=== PATIENT | male | born 1990 | race American Indian/Alaskan Native ===

== ENCOUNTER 2018-04-05 14:01 | Emergency (ER) | payer SELFPAY ==
[2018-04-05] MEDS ORDERED: NACL 0.9% 1000 ML 1,000 ML IV ONE (15:53)
[2018-04-05 16:43] LABS: Hematocrit 44.3 % (35.5-45.6); Hemoglobin 15.1 gm/dl (11.8-15.2); Mean Corpuscular HGB Conc 34 % (32-34); Mean Corpuscular Volume 88 fl (84-94); Red Blood Count 5.02 M/mm3 (3.65-5.03); Red Cell Distribution Width 13.7 % (13.2-15.2)
[2018-04-05 16:48] LABS: Albumin 4.8 g/dL (3.9-5); BUN/Creatinine Ratio 20; Blood Urea Nitrogen 16 mg/dL (9-20); Calcium 9.5 mg/dL (8.4-10.2); Hemolysis Index 97
[2018-04-05] MEDS ORDERED: MORPHINE IV ONE (16:51)
[2018-04-05] MEDS ORDERED: ROCEPHIN 250 MG in NACL 0.9% 50 ML IV ONE (16:52)
--- NOTE | 2018-04-05 16:53 | Emergency Department Report ---
ED Abdominal Pain HPI - General Chief Complaint: Abdominal Pain Stated Complaint: POSS PANCREATITIS Time Seen by Provider: 04/05/18 15:30 Source: patient Mode of arrival: Ambulatory Limitations: No Limitations - History of Present Illness Initial Comments: This is a 28-year-old male with a history of hepatitis who presents complaining of left quadrant abdominal pain times one day that started yesterday. Discussed pain as nonradiating and localized to left upper quadrant. Patient admits associated nausea vomiting intermittently. Patient denies fever/chills/chest pain/shortness of breath/dizziness MD Complaint: abdominal pain - Related Data Previous Rx's Medication Instructions Recorded Last Taken Type Benzonatate [Tessalon Perles] 100 mg PO Q8HR PRN #20 capsule 03/16/18 Unknown Rx Fluticasone [Flonase] 1 spray NS QDAY #1 bottle 03/16/18 Unknown Rx Lisinopril [Zestril] 20 mg PO DAILY #30 tablet 03/16/18 Unknown Rx Ondansetron [Zofran Odt] 4 mg PO Q8HR PRN #10 tab.rapdis 03/16/18 Unknown Rx Oseltamivir Phosphate [Tamiflu] 75 mg PO BID #10 capsule 03/16/18 Unknown Rx Sulfamethoxazole/Trimethoprim 1 each PO BID #14 tablet 03/16/18 Unknown Rx [Bactrim DS TAB] Abacavir/Dolutegravir/Lamivudi 1 each PO DAILY #30 tablet 04/05/18 Unknown Rx [Triumeq 600-50-300 mg Tablet] Dicyclomine [Bentyl] 20 mg PO DAILY #20 tablet 04/05/18 Unknown Rx Allergies Allergy/AdvReac Type Severity Reaction Status Date / Time No Known Allergies Allergy Verified 04/05/18 14:10 ED Review of Systems ROS: Stated complaint: POSS PANCREATITIS Other details as noted in HPI Constitutional: denies: chills, fever Eyes: denies: eye pain, eye discharge, vision change ENT: denies: ear pain, throat pain Respiratory: denies: cough, shortness of breath, wheezing Cardiovascular: denies: chest pain, palpitations Endocrine: no symptoms reported Gastrointestinal: denies: abdominal pain, nausea, diarrhea Genitourinary: denies: urgency, dysuria Musculoskeletal: denies: back pain, joint swelling, arthralgia Skin: denies: rash, lesions Neurological: denies: headache, weakness, paresthesias Psychiatric: denies: anxiety, depression Hematological/Lymphatic: denies: easy bleeding, easy bruising ED Past Medical Hx - Past Medical History Previous Medical History?: Yes Hx Hypertension: Yes Hx HIV: Yes Additional medical history: pancreatitis-- hiv - Surgical History Past Surgical History?: No Hx Coronary Stent: No Hx Open Heart Surgery: No Hx Pacemaker: No Hx Internal Defibrillator: No Hx Cholecystectomy: No Hx Appendectomy: No Hx Breast Surgery: No - Social History Smoking Status: Current Every Day Smoker Substance Use Type: Alcohol - Medications Home Medications: Home Medications Medication Instructions Recorded Confirmed Last Taken Type Benzonatate [Tessalon Perles] 100 mg PO Q8HR PRN #20 capsule 03/16/18 Unknown Rx Fluticasone [Flonase] 1 spray NS QDAY #1 bottle 03/16/18 Unknown Rx Lisinopril [Zestril] 20 mg PO DAILY #30 tablet 03/16/18 Unknown Rx Ondansetron [Zofran Odt] 4 mg PO Q8HR PRN #10 tab.rapdis 03/16/18 Unknown Rx Oseltamivir Phosphate [Tamiflu] 75 mg PO BID #10 capsule 03/16/18 Unknown Rx Sulfamethoxazole/Trimethoprim 1 each PO BID #14 tablet 03/16/18 Unknown Rx [Bactrim DS TAB] Abacavir/Dolutegravir/Lamivudi 1 each PO DAILY #30 tablet 04/05/18 Unknown Rx [Triumeq 600-50-300 mg Tablet] Dicyclomine [Bentyl] 20 mg PO DAILY #20 tablet 04/05/18 Unknown Rx ED Physical Exam - General Limitations: No Limitations General appearance: alert, in no apparent distress - Head Head exam: Present: atraumatic, normocephalic - Eye Eye exam: Present: normal appearance - ENT ENT exam: Present: mucous membranes moist - Neck Neck exam: Present: normal inspection - Respiratory Respiratory exam: Present: normal lung sounds bilaterally. Absent: respiratory distress - Cardiovascular Cardiovascular Exam: Present: regular rate, normal rhythm. Absent: systolic murmur, diastolic murmur, rubs, gallop - GI/Abdominal GI/Abdominal exam: Present: soft, normal bowel sounds - Rectal Rectal exam: Present: deferred - Extremities Exam Extremities exam: Present: normal inspection - Back Exam Back exam: Present: normal inspection - Neurological Exam Neurological exam: Present: alert, oriented X3 - Psychiatric Psychiatric exam: Present: normal affect, normal mood - Skin Skin exam: Present: warm, dry, intact, normal color. Absent: rash ED Course Vital Signs 04/05/18 04/05/18 14:05 17:05 Temperature 97.5 F L Pulse Rate 111 H Respiratory 18 15 Rate Blood Pressure 140/102 O2 Sat by Pulse 99 Oximetry ED Medical Decision Making - Lab Data Result diagrams: 04/05/18 16:01 04/05/18 16:01 - Medical Decision Making 28-year-old male presents with chronic pancreatitis. Nurse made me aware that patient had been drinking 2 days ago. Which possibly flared up his proctitis. Patient received pain medication, 1 L of fluids, prophylaxis antibiotics in the ED. Discussed the patient to follow up with [place] gastro[facility] Patient is in no acute distress. Vital signs are normal. Patient has no elevated white count, fever. Patient looks well-nourished Labs are within normal limits lipase and amylase elevated within normal limits due to patient's history of pancreatitis Critical care attestation.: If time is entered above; I have spent that time in minutes in the direct care of this critically ill patient, excluding procedure time. ED Disposition Clinical Impression: Chronic pancreatitis Disposition: DC- TO HOME OR SELFCARE Is pt being admited?: No Does the pt Need Aspirin: No Condition: Stable Instructions: Pancreatitis (ED) Additional Instructions: Make sure to follow up with the primary care physician as discussed. Take all your medications as you've been prescribed. If you have any worsening symptoms or develop new symptoms please return to ED immediately. Prescriptions: Abacavir/Dolutegravir/Lamivudi [Triumeq 600-50-300 mg Tablet] 1 each PO DAILY #30 tablet Dicyclomine [Bentyl] 20 mg PO DAILY #20 tablet Referrals: PRIMARY CARE, [Primary Care Provider] - 3-5 Days [facility] [Provider Group] - 3-5 Days [facility] [Provider Group] - 3-5 Days Forms: Accompanied Note, Work/School Release Form(ED)
[2018-04-05 17:01] LABS: Bilirubin,Urine NEG (Negative); Blood,Urine NEG (Negative); Color,Urine Yellow (Yellow); Protein,Urine <15 mg/dL mg/dL (Negative); Urobilinogen,Urine < 2.0 mg/dL (<2.0); WBC,Urine < 1.0 /HPF (0.0-6.0)
[2018-04-05 17:09] LABS: Alanine Aminotransferase 27 units/L (7-56)
[2018-04-05 17:21] LABS: Platelet Count 86 K/mm3 (140-440)
[2018-04-05] MEDS ORDERED: ZOFRAN IV ONE (18:04)
[2018-04-05] MEDS ORDERED: ZOFRAN ONE (18:07)
[2018-04-05 18:39] VITALS: BP 134/98
== END 2018-04-05 18:18 | disposition home or self-care (01) ==
LOC: ED 14:01
DX: K86.1 Other chronic pancreatitis (principal); I10 Essential (primary) hypertension; F17.200 Nicotine dependence, unspecified, uncomplicated
CPT/HCPCS: 36415; 80053; 81001; 82150; 83690; 85025; 96361; 96365; 96375; 99283; J0696; J2270; J2405; J7030

== ENCOUNTER 2018-04-24 11:09 | Emergency (ER) | payer SELFPAY ==
[2018-04-24] MEDS ORDERED: NACL 0.9% 1000 ML 1,000 ML IV ONE (12:21)
[2018-04-24] MEDS ORDERED: TORADOL IV ONE (12:21)
[2018-04-24] MEDS ORDERED: PEPCID IV ONE (12:21)
[2018-04-24] MEDS ORDERED: MORPHINE IV ONE ×2 (12:21→14:01)
[2018-04-24] MEDS ORDERED: ZOFRAN IV ONE (12:21)
[2018-04-24 12:47] LABS: Basophils % (Auto) 0.2 % (0.0-1.8); Eosinophils # (Auto) 0.1 K/mm3 (0.0-0.4); Eosinophils % (Auto) 0.7 % (0.0-4.3); Hemoglobin 14.5 gm/dl (11.8-15.2); Lymphocytes # (Auto) 1.2 K/mm3 (1.2-5.4); Mean Corpuscular HGB Conc 34 % (32-34); Mean Corpuscular Volume 88 fl (84-94); Monocytes # (Auto) 0.3 K/mm3 (0.0-0.8); Monocytes % (Auto) 4.1 % (0.0-7.3); Platelet Count 230 K/mm3 (140-440); Red Blood Count 4.89 M/mm3 (3.65-5.03); Red Cell Distribution Width 13.7 % (13.2-15.2)
[2018-04-24 13:10] LABS: Alanine Aminotransferase 30 units/L (7-56); Albumin 4.7 g/dL (3.9-5); BUN/Creatinine Ratio 18; Blood Urea Nitrogen 14 mg/dL (9-20); Calcium 9.8 mg/dL (8.4-10.2); Hemolysis Index 18
--- NOTE | 2018-04-24 14:44 | Emergency Department Report ---
ED Abdominal Pain HPI - General Chief Complaint: Abdominal Pain Stated Complaint: ABD PAIN/MIGRAINE Time Seen by Provider: 04/24/18 12:19 Source: patient Mode of arrival: Ambulatory Limitations: No Limitations - History of Present Illness Initial Comments: Patient is a 28-year-old black male with a past medical history of chronic pancreatitis whose been having some epigastric discomfort for the past 3 days. Patient states the pain is a 10 I's and his severity and there is some radiation to his back. Patient states he has a past medical history of alcohol abuse however he has not been drinking in last several days. Patient states he has had some nausea vomiting and mild diarrhea which she does get with his flareups of pancreatitis. Patient has no fever at this time. MD Complaint: abdominal pain Severity scale (0 -10): 7 - Related Data Previous Rx's Medication Instructions Recorded Last Taken Type Benzonatate [Tessalon Perles] 100 mg PO Q8HR PRN #20 capsule 03/16/18 Unknown Rx Fluticasone [Flonase] 1 spray NS QDAY #1 bottle 03/16/18 Unknown Rx Lisinopril [Zestril] 20 mg PO DAILY #30 tablet 03/16/18 Unknown Rx Oseltamivir Phosphate [Tamiflu] 75 mg PO BID #10 capsule 03/16/18 Unknown Rx Sulfamethoxazole/Trimethoprim 1 each PO BID #14 tablet 03/16/18 Unknown Rx [Bactrim DS TAB] Abacavir/Dolutegravir/Lamivudi 1 each PO DAILY #30 tablet 04/05/18 Unknown Rx [Triumeq 600-50-300 mg Tablet] Dicyclomine [Bentyl] 20 mg PO DAILY #20 tablet 04/05/18 Unknown Rx Ondansetron [Zofran ODT TAB] 4 mg PO Q8HR PRN #10 tab.rapdis 04/05/18 Unknown Rx HYDROcodone/APAP 5-325 [[place] 1 each PO Q6HR PRN #12 tablet 04/24/18 Unknown Rx 5/325] Ibuprofen [Motrin] 600 mg PO Q8H PRN #20 tablet 04/24/18 Unknown Rx Ondansetron [Zofran Odt] 4 mg PO Q8HR PRN #10 tab.rapdis 04/24/18 Unknown Rx Allergies Allergy/AdvReac Type Severity Reaction Status Date / Time No Known Allergies Allergy Verified 04/05/18 14:10 ED Review of Systems ROS: Stated complaint: ABD PAIN/MIGRAINE Other details as noted in HPI Comment: All other systems reviewed and negative ED Past Medical Hx - Past Medical History Hx Hypertension: Yes Hx HIV: Yes Additional medical history: pancreatitis-- hiv - Surgical History Hx Coronary Stent: No Hx Open Heart Surgery: No Hx Pacemaker: No Hx Internal Defibrillator: No Hx Cholecystectomy: No Hx Appendectomy: No Hx Breast Surgery: No - Social History Smoking Status: Current Every Day Smoker Substance Use Type: None - Medications Home Medications: Home Medications Medication Instructions Recorded Confirmed Last Taken Type Benzonatate [Tessalon Perles] 100 mg PO Q8HR PRN #20 capsule 03/16/18 Unknown Rx Fluticasone [Flonase] 1 spray NS QDAY #1 bottle 03/16/18 Unknown Rx Lisinopril [Zestril] 20 mg PO DAILY #30 tablet 03/16/18 Unknown Rx Oseltamivir Phosphate [Tamiflu] 75 mg PO BID #10 capsule 03/16/18 Unknown Rx Sulfamethoxazole/Trimethoprim 1 each PO BID #14 tablet 03/16/18 Unknown Rx [Bactrim DS TAB] Abacavir/Dolutegravir/Lamivudi 1 each PO DAILY #30 tablet 04/05/18 Unknown Rx [Triumeq 600-50-300 mg Tablet] Dicyclomine [Bentyl] 20 mg PO DAILY #20 tablet 04/05/18 Unknown Rx Ondansetron [Zofran ODT TAB] 4 mg PO Q8HR PRN #10 tab.rapdis 04/05/18 Unknown Rx HYDROcodone/APAP 5-325 [[place] 1 each PO Q6HR PRN #12 tablet 04/24/18 Unknown Rx 5/325] Ibuprofen [Motrin] 600 mg PO Q8H PRN #20 tablet 04/24/18 Unknown Rx Ondansetron [Zofran Odt] 4 mg PO Q8HR PRN #10 tab.rapdis 04/24/18 Unknown Rx ED Physical Exam - General Limitations: No Limitations General appearance: alert, in no apparent distress - Head Head exam: Present: atraumatic, normocephalic - Eye Eye exam: Present: normal appearance - ENT ENT exam: Present: mucous membranes moist - Neck Neck exam: Present: normal inspection - Respiratory Respiratory exam: Present: normal lung sounds bilaterally. Absent: respiratory distress, wheezes, rales, rhonchi - Cardiovascular Cardiovascular Exam: Present: regular rate, normal rhythm. Absent: systolic murmur, diastolic murmur, rubs, gallop - GI/Abdominal GI/Abdominal exam: Present: soft, tenderness (epigastric), normal bowel sounds. Absent: distended, guarding, rebound - Rectal Rectal exam: Present: deferred - Extremities Exam Extremities exam: Present: normal inspection - Back Exam Back exam: Present: normal inspection - Neurological Exam Neurological exam: Present: alert, oriented X3 - Psychiatric Psychiatric exam: Present: normal affect, normal mood - Skin Skin exam: Present: warm, dry, intact, normal color. Absent: rash ED Course Vital Signs 04/24/18 04/24/18 04/24/18 11:15 12:45 12:51 Temperature 98.7 F Pulse Rate 103 H Respiratory 18 18 18 Rate Blood Pressure 157/96 O2 Sat by Pulse 99 Oximetry 04/24/18 12:52 Temperature Pulse Rate Respiratory 18 Rate Blood Pressure O2 Sat by Pulse 99 Oximetry ED Medical Decision Making - Lab Data Result diagrams: 04/24/18 12:26 04/24/18 12:26 Lab Results 04/24/18 04/24/18 Range/Units 12:26 12:26 WBC 7.8 (4.5-11.0) K/mm3 RBC 4.89 (3.65-5.03) M/mm3 Hgb 14.5 (11.8-15.2) gm/dl Hct 43.0 (35.5-45.6) % MCV 88 (84-94) fl MCH 30 (28-32) pg MCHC 34 (32-34) % RDW 13.7 (13.2-15.2) % Plt Count 230 (140-440) K/mm3 Lymph % (Auto) 15.0 (13.4-35.0) % Richardson % (Auto) 4.1 (0.0-7.3) % Eos % (Auto) 0.7 (0.0-4.3) % Baso % (Auto) 0.2 (0.0-1.8) % Lymph # 1.2 (1.2-5.4) K/mm3 Richardson # 0.3 (0.0-0.8) K/mm3 Eos # 0.1 (0.0-0.4) K/mm3 Baso # 0.0 (0.0-0.1) K/mm3 Seg Neutrophils % 80.0 H (40.0-70.0) % Seg Neutrophils # 6.2 (1.8-7.7) K/mm3 Sodium 138 (137-145) mmol/L Potassium 4.1 (3.6-5.0) mmol/L Chloride 102.3 (98-107) mmol/L Carbon Dioxide 24 (22-30) mmol/L Anion Gap 16 mmol/L BUN 14 (9-20) mg/dL Creatinine 0.8 (0.8-1.5) mg/dL Estimated GFR > 60 ml/min BUN/Creatinine Ratio 18 % Glucose 155 H (75-100) mg/dL Calcium 9.8 (8.4-10.2) mg/dL Total Bilirubin 0.30 (0.1-1.2) mg/dL AST 28 (5-40) units/L ALT 30 (7-56) units/L Alkaline Phosphatase 60 (35-129) units/L Total Protein 8.1 (6.3-8.2) g/dL Albumin 4.7 (3.9-5) g/dL Albumin/Globulin Ratio 1.4 % Lipase 211 H (13-60) units/L - Medical Decision Making Patient was hydrated him emergency department. No additional nausea vomiting. Patient to be discharged home with GI follow-up. Critical care attestation.: If time is entered above; I have spent that time in minutes in the direct care of this critically ill patient, excluding procedure time. 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
[2018-04-24 15:26] VITALS: BP 148/103
== END 2018-04-24 15:21 | disposition home or self-care (01) ==
LOC: ED 11:09
DX: K86.1 Other chronic pancreatitis (principal); I10 Essential (primary) hypertension; F17.200 Nicotine dependence, unspecified, uncomplicated
CPT/HCPCS: 36415; 80053; 83690; 85025; 96361; 96374; 96375; 96376; 99283; J1885; J2270; J2405; J7030

== ENCOUNTER 2018-04-28 17:16 | Emergency (ER) | payer SELFPAY ==
[2018-04-28] MEDS ORDERED: NACL 0.9% 1000 ML 1,000 ML IV ONE ×2 (17:29→20:01)
[2018-04-28 18:11] LABS: Alanine Aminotransferase 27 units/L (7-56); Albumin 4.5 g/dL (3.9-5)
[2018-04-28 18:26] LABS: Bilirubin,Urine NEG (Negative); Blood,Urine NEG (Negative); Color,Urine Yellow (Yellow); Mucus,Urine 1+ /HPF; Protein,Urine <15 mg/dL mg/dL (Negative); Urobilinogen,Urine < 2.0 mg/dL (<2.0); WBC,Urine < 1.0 /HPF (0.0-6.0)
[2018-04-28 18:34] LABS: BUN/Creatinine Ratio 14; Blood Urea Nitrogen 15 mg/dL (9-20); Hemolysis Index 63
[2018-04-28 18:38] LABS: Hematocrit 46.6 % (35.5-45.6); Hemoglobin 15.8 gm/dl (11.8-15.2); Mean Corpuscular HGB Conc 34 % (32-34); Mean Corpuscular Volume 88 fl (84-94); Red Blood Count 5.31 M/mm3 (3.65-5.03); Red Cell Distribution Width 13.8 % (13.2-15.2)
[2018-04-28 18:47] LABS: Platelet Count 157 K/mm3 (140-440)
[2018-04-28] MEDS ORDERED: ZOFRAN IV ONE (18:47)
[2018-04-28] MEDS ORDERED: MORPHINE IV ONE ×2 (18:47→20:52)
[2018-04-28] MEDS ORDERED: ZOFRAN ONE (18:50)
[2018-04-28] MEDS ORDERED: MORPHINE ONE ×2 (18:51→20:52)
--- NOTE | 2018-04-28 20:40 | Emergency Department Report ---
ED Abdominal Pain HPI - General Chief Complaint: Abdominal Pain Stated Complaint: ABD PAIN Time Seen by Provider: 04/28/18 20:00 Source: patient Mode of arrival: Ambulatory Limitations: No Limitations - History of Present Illness Initial Comments: There is a 28-year-old -[place] Citizen male with history of HIV positive and pancreatitis who presents for left upper quadrant abdominal pain with nausea and vomiting for the past 3 days patient states he stopped doing EtOH no other drugs or smoking pain started 3 days ago described as burning aching 6/10 exacerbated by by mouth intake and is relieved by nothing patient states that he saw medication regimens does have an IDP DrAna but cannot see him for another 2 weeks. Last by mouth intake was this morning last vomiting was 3 hours ago pain is 4/10 at this time . No relieving factors pain is exacerbated by by mouth intake MD Complaint: abdominal pain Onset/Timin -: days(s) Location: LUQ Radiation: none Migration to: no migration Severity: moderate Severity scale (0 -10): 8 Quality: aching Consistency: constant Improves With: nothing Worsens With: eating Associated Symptoms: nausea, vomiting. denies: diarrhea, fever, chills, constipation, dysuria, hematemesis, hematochezia, melena, hematuria, anorexia, syncope - Related Data Previous Rx's Medication Instructions Recorded Last Taken Type Benzonatate [Tessalon Perles] 100 mg PO Q8HR PRN #20 capsule 03/16/18 Unknown Rx Fluticasone [Flonase] 1 spray NS QDAY #1 bottle 03/16/18 Unknown Rx Lisinopril [Zestril] 20 mg PO DAILY #30 tablet 03/16/18 Unknown Rx Oseltamivir Phosphate [Tamiflu] 75 mg PO BID #10 capsule 03/16/18 Unknown Rx Sulfamethoxazole/Trimethoprim 1 each PO BID #14 tablet 03/16/18 Unknown Rx [Bactrim DS TAB] Abacavir/Dolutegravir/Lamivudi 1 each PO DAILY #30 tablet 04/05/18 Unknown Rx [Triumeq 600-50-300 mg Tablet] Dicyclomine [Bentyl] 20 mg PO DAILY #20 tablet 04/05/18 Unknown Rx Ondansetron [Zofran ODT TAB] 4 mg PO Q8HR PRN #10 tab.rapdis 04/05/18 Unknown Rx HYDROcodone/APAP 5-325 [[place] 1 each PO Q6HR PRN #12 tablet 04/24/18 Unknown Rx 5/325] Ibuprofen [Motrin] 600 mg PO Q8H PRN #20 tablet 04/24/18 Unknown Rx Ondansetron [Zofran Odt] 4 mg PO Q8HR PRN #10 tab.rapdis 04/24/18 Unknown Rx Famotidine [Pepcid] 20 mg PO BID #60 tablet 04/28/18 Unknown Rx Ondansetron [Zofran Odt] 4 mg PO Q8HR PRN #12 tab.rapdis 04/28/18 Unknown Rx Tramadol HCl [Ultram] 50 mg PO QID PRN #12 tablet 04/28/18 Unknown Rx Allergies Allergy/AdvReac Type Severity Reaction Status Date / Time No Known Allergies Allergy Verified 04/05/18 14:10 ED Review of Systems ROS: Stated complaint: ABD PAIN Other details as noted in HPI Constitutional: denies: chills, fever Eyes: denies: eye pain, eye discharge, vision change ENT: denies: ear pain, throat pain Respiratory: denies: cough, shortness of breath, wheezing Cardiovascular: denies: chest pain, palpitations Endocrine: no symptoms reported Gastrointestinal: abdominal pain, nausea, vomiting. denies: diarrhea, cons tipation, hematemesis, melena, hematochezia Genitourinary: denies: urgency, dysuria Musculoskeletal: denies: back pain, joint swelling, arthralgia Skin: denies: rash, lesions Neurological: denies: headache, weakness, paresthesias Psychiatric: denies: anxiety, depression Hematological/Lymphatic: denies: easy bleeding, easy bruising ED Past Medical Hx - Past Medical History Hx Hypertension: Yes Hx HIV: Yes Additional medical history: pancreatitis - Surgical History Hx Coronary Stent: No Hx Open Heart Surgery: No Hx Pacemaker: No Hx Internal Defibrillator: No Hx Cholecystectomy: No Hx Appendectomy: No Hx Breast Surgery: No - Social History Smoking Status: Current Every Day Smoker Substance Use Type: None - Medications Home Medications: Home Medications Medication Instructions Recorded Confirmed Last Taken Type Benzonatate [Tessalon Perles] 100 mg PO Q8HR PRN #20 capsule 03/16/18 Unknown Rx Fluticasone [Flonase] 1 spray NS QDAY #1 bottle 03/16/18 Unknown Rx Lisinopril [Zestril] 20 mg PO DAILY #30 tablet 03/16/18 Unknown Rx Oseltamivir Phosphate [Tamiflu] 75 mg PO BID #10 capsule 03/16/18 Unknown Rx Sulfamethoxazole/Trimethoprim 1 each PO BID #14 tablet 03/16/18 Unknown Rx [Bactrim DS TAB] Abacavir/Dolutegravir/Lamivudi 1 each PO DAILY #30 tablet 04/05/18 Unknown Rx [Triumeq 600-50-300 mg Tablet] Dicyclomine [Bentyl] 20 mg PO DAILY #20 tablet 04/05/18 Unknown Rx Ondansetron [Zofran ODT TAB] 4 mg PO Q8HR PRN #10 tab.rapdis 04/05/18 Unknown Rx HYDROcodone/APAP 5-325 [[place] 1 each PO Q6HR PRN #12 tablet 04/24/18 Unknown Rx 5/325] Ibuprofen [Motrin] 600 mg PO Q8H PRN #20 tablet 04/24/18 Unknown Rx Ondansetron [Zofran Odt] 4 mg PO Q8HR PRN #10 tab.rapdis 04/24/18 Unknown Rx Famotidine [Pepcid] 20 mg PO BID #60 tablet 04/28/18 Unknown Rx Ondansetron [Zofran Odt] 4 mg PO Q8HR PRN #12 tab.rapdis 04/28/18 Unknown Rx Tramadol HCl [Ultram] 50 mg PO QID PRN #12 tablet 04/28/18 Unknown Rx ED Physical Exam - General Limitations: No Limitations General appearance: alert, in no apparent distress - Head Head exam: Present: atraumatic, normocephalic - Eye Eye exam: Present: normal appearance - ENT ENT exam: Present: mucous membranes moist - Neck Neck exam: Present: normal inspection - Respiratory Respiratory exam: Present: normal lung sounds bilaterally. Absent: respiratory distress, wheezes, stridor, chest wall tenderness - Cardiovascular Cardiovascular Exam: Present: regular rate, normal rhythm, normal heart sounds. Absent: systolic murmur, diastolic murmur, rubs, gallop - GI/Abdominal GI/Abdominal exam: Present: soft, tenderness (LUQ ), normal bowel sounds. Absent: guarding, rebound, rigid, mass, bruit, pulsatile mass, hernia - Rectal Rectal exam: Present: deferred - Extremities Exam Extremities exam: Present: normal inspection - Back Exam Back exam: Present: normal inspection, full ROM. Absent: tenderness, CVA tenderness (R), CVA tenderness (L) - Neurological Exam Neurological exam: Present: alert, oriented X3, CN II-XII intact, normal gait, reflexes normal - Psychiatric Psychiatric exam: Present: normal affect, normal mood - Skin Skin exam: Present: warm, dry, intact, normal color. Absent: rash ED Course Vital Signs 04/28/18 04/28/18 04/28/18 17:22 19:18 20:53 Temperature 98.4 F Pulse Rate 119 H Respiratory 18 18 18 Rate Blood Pressure 147/94 O2 Sat by Pulse 99 Oximetry ED Medical Decision Making - Lab Data Result diagrams: 04/28/18 17:37 04/28/18 17:37 Labs 04/28/18 04/28/18 04/28/18 17:36 17:37 17:37 WBC 9.2 RBC 5.31 H Hgb 15.8 H Hct 46.6 H MCV 88 MCH 30 MCHC 34 RDW 13.8 Plt Count 157 Lymph % (Auto) [employer] Machine Adjuster [place] % (Auto) [employer] Machine Adjuster Eos % (Auto) [employer] Machine Adjuster Baso % (Auto) [employer] Machine Adjuster Lymph # [employer] Machine Adjuster [place] # Shotgun [employer] Assembly Machine Adjuster Eos # Shotgun [employer] Machine Adjuster Baso # [employer]gun [employer] Machine Adjuster Seg Neutrophils % Shotgun [employer] Machine Adjuster Seg Neutrophils # Shotgun [employer] Machine Adjuster Sodium 137 Potassium 4.3 Chloride 104.9 Carbon Dioxide 16 L D Anion Gap 20 BUN 15 Creatinine 1.1 Estimated GFR > 60 BUN/Creatinine Ratio 14 Glucose 110 H Calcium 10.0 Total Bilirubin 0.50 AST 30 ALT 27 Alkaline Phosphatase 63 Total Protein 8.5 H Albumin 4.5 Albumin/Globulin Ratio 1.1 Lipase Urine Color Yellow Urine Turbidity Clear Urine pH 5.0 Ur Specific [place] 1.026 Urine Protein <15 mg/dl Urine Glucose (UA) Neg Urine Ketones Tr Urine Blood Neg Urine Nitrite Neg Urine Bilirubin Neg Urine Urobilinogen < 2.0 Ur Leukocyte Esterase Neg Urine WBC (Auto) < 1.0 Urine RBC (Auto) 1.0 Urine Mucus 1+ 04/28/18 17:37 WBC RBC Hgb Hct MCV MCH MCHC RDW Plt Count Lymph % (Auto) [place] % (Auto) Eos % (Auto) Baso % (Auto) Lymph # [place] # Eos # Baso # Seg Neutrophils % Seg Neutrophils # Sodium Potassium Chloride Carbon Dioxide Anion Gap BUN Creatinine Estimated GFR BUN/Creatinine Ratio Glucose Calcium Total Bilirubin AST ALT Alkaline Phosphatase Total Protein Albumin Albumin/Globulin Ratio Lipase 132 H Urine Color Urine Turbidity Urine pH Ur Specific [place] Urine Protein Urine Glucose (UA) Urine Ketones Urine Blood Urine Nitrite Urine Bilirubin Urine Urobilinogen Ur Leukocyte Esterase Urine WBC (Auto) Urine RBC (Auto) Urine Mucus - Radiology Data Radiology results: report reviewed, image reviewed Findings [facility] [address] [place] [address] Cat Scan Report Signed Patient: AARON ALICEA MR#: [id number] : 1990 Acct:[id number] Age/Sex: 28 / M ADM Date: 04/28/18 Loc: ED Attending Dr: Ordering Physician: SARAH ALEGRE NP Date of Service: 04/28/18 Procedure(s): CT abdomen pelvis wo con Accession Number(s): [id number] cc: SARAH ALEGRE NP FINAL REPORT PROCEDURE: CT ABDOMEN PELVIS WO CON TECHNIQUE: Computerized axial tomography of the abdomen and pelvis was performed without intravenous contrast. HISTORY: abd pain COMPARISON: No prior studies are available for comparison. FINDINGS: Visualized lower thorax: No significant abnormality. Liver: Normal size and attenuation. Spleen: Normal size and attenuation. Gallbladder and biliary system: Normal. Pancreas: Chronic pancreatitis with multiple calcifications throughout. There is dilatation of the pancreatic duct. No fluid collection. Adrenals: Normal. Kidneys: Normal. GI tract: Normal. No dilated loops of large or small bowel. Appendix is normal. Lymph nodes and mesentery: Normal. Vasculature: Normal. Bladder: Normal. Reproductive organs: Normal. Peritoneum: No free fluid. Musculoskeletal structures: No significant abnormality. Other: None. IMPRESSION: Chronic pancreatitis with dilatation of the pancreatic duct and multiple calcifications. No pseudocyst. Transcribed By: BRP Dictated By: DEEDEE AL MD Electronically Authenticated By: DEEDEE AL MD Signed Date/Time: 04/28/182106 - Medical Decision Making pt symptoms improved, ct abd pelvis: chronic pancreatitis, pt advised to avoid ETHOH, rx: for zofran prn, pepcid, ultram follow up with pcp and GI in 2 days pt verbalized agreement and understanding of discharge plan. pt is tolerating po intake without n/v at this time, abd pain is 2/10 from 8/10 pt is in stable condition at this time, will return to ed if symptoms worsen. Critical care attestation.: If time is entered above; I have spent that time in minutes in the direct care of this critically ill patient, excluding procedure time. ED Disposition Clinical Impression: Pancreatitis Qualifiers: Chronicity: chronic Pancreatitis type: unspecified pancreatitis type Qualified Code(s): K86.1 - Other chronic pancreatitis Abdominal pain Qualifiers: Abdominal location: generalized Qualified Code(s): R10.84 - Generalized abdominal pain Disposition: TO HOME OR SELFCARE Is pt being admited?: No Does the pt Need Aspirin: No Condition: Stable Instructions: Pancreatitis (ED), Abuse of Alcohol (ED) Prescriptions: Famotidine [Pepcid] 20 mg PO BID #60 tablet Ondansetron [Zofran Odt] 4 mg PO Q8HR PRN #12 tab.rapdis PRN Reason: nausea and vomting Tramadol HCl [Ultram] 50 mg PO QID PRN #12 tablet PRN Reason: pain Referrals: PRIMARY CARE, [Referring] - 3-5 Days [facility] [Provider Group] - 3-5 Days Forms: Work/School Release Form(ED) Time of Disposition: 22:36
--- NOTE | 2018-04-28 21:07 | Cat Scan Report ---
FINAL REPORT PROCEDURE: CT ABDOMEN PELVIS WO CON TECHNIQUE: Computerized axial tomography of the abdomen and pelvis was performed without intravenous contrast. HISTORY: abd pain COMPARISON: No prior studies are available for comparison. FINDINGS: Visualized lower thorax: No significant abnormality. Liver: Normal size and attenuation. Spleen: Normal size and attenuation. Gallbladder and biliary system: Normal. Pancreas: Chronic pancreatitis with multiple calcifications throughout. There is dilatation of the pa ncreatic duct. No fluid collection. Adrenals: Normal. Kidneys: Normal. GI tract: Normal. No dilated loops of large or small bowel. Appendix is normal. Lymph nodes and mesentery: Normal. Vasculature: Normal. Bladder: Normal. Reproductive organs: Normal. Peritoneum: No free fluid. Musculoskeletal structures: No significant abnormality. Other: None. IMPRESSION: Chronic pancreatitis with dilatation of the pancreatic duct and multiple calcifications. No pseudocys t.
[2018-04-28] MEDS ORDERED: REGLAN IV ONE (21:55)
[2018-04-28] MEDS ORDERED: BENADRYL IV ONE (21:55)
[2018-04-28] MEDS ORDERED: HALDOL IM ONE (22:05)
[2018-04-30 12:35] VITALS: BP 147/94
== END 2018-04-28 22:52 | disposition home or self-care (01) ==
LOC: ED 17:16
DX: K85.90 Acute pancreatitis without necrosis or infection, unspecified (principal); I10 Essential (primary) hypertension; F17.200 Nicotine dependence, unspecified, uncomplicated; Z95.5 Presence of coronary angioplasty implant and graft
CPT/HCPCS: 36415; 74176; 80053; 81001; 83690; 85025; 96361; 96372; 96374; 96375; 96376; 99284; J1200; J1630; J2270; J2405; J2765; J7030

== ENCOUNTER 2018-06-07 08:30 | Emergency (ER) | payer SELFPAY ==
[2018-06-07 08:43] VITALS: BP 160/99
[2018-06-07] MEDS ORDERED: NACL 0.9% 1000 ML 1,000 ML IV ONE (10:03)
[2018-06-07] MEDS ORDERED: ZOFRAN IV ONE (10:03)
[2018-06-07] MEDS ORDERED: MORPHINE IV ONE ×2 (10:03→11:28)
--- NOTE | 2018-06-07 10:16 | Emergency Department Report ---
ED Abdominal Pain HPI - General Chief Complaint: Abdominal Pain Stated Complaint: ABD PAIN, N/V,BLOODY STOOL Time Seen by Provider: 06/07/18 09:08 Source: patient Mode of arrival: Ambulatory Limitations: No Limitations - History of Present Illness Initial Comments: This is a 28-year-old male nontoxic, well nourished in appearance, no acute signs of distress presents to the ED with c/o of nausea and vomiting and abdominal pain 1 day. Patient also stated has been seeing blood in stool. Patient stated this is similar symptoms with his pancritis. Patient describes vomiting as food content and yellow gastric acid. Patient describes abdominal pain as cramping and aching with level of 8/10 diffuse. Patient denies chest pain, short of breath, fever, chills, headache, stiff neck, numbness or tingling. Patient denies any diarrhea or constipation. Patient denies any recent travels. Patient denies any allergies. MD Complaint: abdominal pain -: days(s) (1) Location: diffuse Radiation: none Migration to: no migration Severity: mild Severity scale (0 -10): 8 Quality: aching Consistency: constant Improves With: nothing Worsens With: nothing Associated Symptoms: nausea, vomiting, hematochezia. denies: diarrhea, fever, chills, constipation, dysuria, hematemesis, melena, hematuria, anorexia, syncope - Related Data Previous Rx's Medication Instructions Recorded Last Taken Type Benzonatate [Tessalon Perles] 100 mg PO Q8HR PRN #20 capsule 03/16/18 Unknown Rx Fluticasone [Flonase] 1 spray NS QDAY #1 bottle 03/16/18 Unknown Rx Lisinopril [Zestril] 20 mg PO DAILY #30 tablet 03/16/18 Unknown Rx Oseltamivir Phosphate [Tamiflu] 75 mg PO BID #10 capsule 03/16/18 Unknown Rx Sulfamethoxazole/Trimethoprim 1 each PO BID #14 tablet 03/16/18 Unknown Rx [Bactrim DS TAB] Abacavir/Dolutegravir/Lamivudi 1 each PO DAILY #30 tablet 04/05/18 Unknown Rx [Triumeq 600-50-300 mg Tablet] Dicyclomine [Bentyl] 20 mg PO DAILY #20 tablet 04/05/18 Unknown Rx Ondansetron [Zofran ODT TAB] 4 mg PO Q8HR PRN #10 tab.rapdis 04/05/18 Unknown Rx HYDROcodone/APAP 5-325 [[place] 1 each PO Q6HR PRN #12 tablet 04/24/18 Unknown Rx 5/325] Ibuprofen [Motrin] 600 mg PO Q8H PRN #20 tablet 04/24/18 Unknown Rx Ondansetron [Zofran Odt] 4 mg PO Q8HR PRN #10 tab.rapdis 04/24/18 Unknown Rx Famotidine [Pepcid] 20 mg PO BID #60 tablet 04/28/18 Unknown Rx Ondansetron [Zofran Odt] 4 mg PO Q8HR PRN #12 tab.rapdis 04/28/18 Unknown Rx Tramadol HCl [Ultram] 50 mg PO QID PRN #12 tablet 04/28/18 Unknown Rx Acetaminophen/Codeine [Tylenol 1 tab PO Q6H PRN #12 tab 06/07/18 Unknown Rx /Codeine # 3 tab] Ondansetron [Zofran Odt] 4 mg PO Q8HR PRN #20 tab.rapdis 06/07/18 Unknown Rx Allergies Allergy/AdvReac Type Severity Reaction Status Date / Time No Known Allergies Allergy Verified 04/05/18 14:10 ED Review of Systems ROS: Stated complaint: ABD PAIN, N/V,BLOODY STOOL Other details as noted in HPI Constitutional: denies: chills, fever Eyes: denies: eye pain, eye discharge, vision change ENT: denies: ear pain, throat pain Respiratory: denies: cough, shortness of breath, wheezing Cardiovascular: denies: chest pain, palpitations Endocrine: no symptoms reported Gastrointestinal: abdominal pain, nausea, vomiting, hematochezia. denies: diarrhea, constipation, hematemesis Genitourinary: denies: urgency, dysuria Musculoskeletal: denies: back pain, joint swelling, arthralgia Skin: denies: rash, lesions Neurological: denies: headache, weakness, paresthesias Psychiatric: denies: anxiety, depression Hematological/Lymphatic: denies: easy bleeding, easy bruising ED Past Medical Hx - Past Medical History Hx Hypertension: Yes Hx HIV: Yes Additional medical history: pancreatitis-- hiv - Surgical History Hx Coronary Stent: No Hx Open Heart Surgery: No Hx Pacemaker: No Hx Internal Defibrillator: No Hx Cholecystectomy: No Hx Appendectomy: No Hx Breast Surgery: No - Social History Smoking Status: Current Every Day Smoker Substance Use Type: None - Medications Home Medications: Home Medications Medication Instructions Recorded Confirmed Last Taken Type Benzonatate [Tessalon Perles] 100 mg PO Q8HR PRN #20 capsule 03/16/18 Unknown Rx Fluticasone [Flonase] 1 spray NS QDAY #1 bottle 03/16/18 Unknown Rx Lisinopril [Zestril] 20 mg PO DAILY #30 tablet 03/16/18 Unknown Rx Oseltamivir Phosphate [Tamiflu] 75 mg PO BID #10 capsule 03/16/18 Unknown Rx Sulfamethoxazole/Trimethoprim 1 each PO BID #14 tablet 03/16/18 Unknown Rx [Bactrim DS TAB] Abacavir/Dolutegravir/Lamivudi 1 each PO DAILY #30 tablet 04/05/18 Unknown Rx [Triumeq 600-50-300 mg Tablet] Dicyclomine [Bentyl] 20 mg PO DAILY #20 tablet 04/05/18 Unknown Rx Ondansetron [Zofran ODT TAB] 4 mg PO Q8HR PRN #10 tab.rapdis 04/05/18 Unknown Rx HYDROcodone/APAP 5-325 [[place] 1 each PO Q6HR PRN #12 tablet 04/24/18 Unknown Rx 5/325] Ibuprofen [Motrin] 600 mg PO Q8H PRN #20 tablet 04/24/18 Unknown Rx Ondansetron [Zofran Odt] 4 mg PO Q8HR PRN #10 tab.rapdis 04/24/18 Unknown Rx Famotidine [Pepcid] 20 mg PO BID #60 tablet 04/28/18 Unknown Rx Ondansetron [Zofran Odt] 4 mg PO Q8HR PRN #12 tab.rapdis 04/28/18 Unknown Rx Tramadol HCl [Ultram] 50 mg PO QID PRN #12 tablet 04/28/18 Unknown Rx Acetaminophen/Codeine [Tylenol 1 tab PO Q6H PRN #12 tab 06/07/18 Unknown Rx /Codeine # 3 tab] Ondansetron [Zofran Odt] 4 mg PO Q8HR PRN #20 tab.rapdis 06/07/18 Unknown Rx ED Physical Exam - General Limitations: No Limitations General appearance: alert, in no apparent distress - Head Head exam: Present: atraumatic, normocephalic - Eye Eye exam: Present: normal appearance - Neck Neck exam: Present: normal inspection, full ROM. Absent: tenderness, meningismus, lymphadenopathy - Respiratory Respiratory exam: Present: normal lung sounds bilaterally. Absent: respiratory distress, wheezes, rales, rhonchi, stridor, chest wall tenderness, accessory muscle use, decreased breath sounds, prolonged expiratory - Cardiovascular Cardiovascular Exam: Present: regular rate, normal rhythm, normal heart sounds. Absent: irregular rhythm, systolic murmur, diastolic murmur, rubs, gallop - GI/Abdominal GI/Abdominal exam: Present: soft, tenderness, normal bowel sounds. Absent: distended, guarding, rebound, rigid, diminished bowel sounds - Expanded GI/Abdominal Exam Expanded GI/Abdominal exam: Absent: psoas sign, Cam's sign, Rovsing's sign, tenderness at [place]'s Point, ascites - Rectal Rectal exam: Present: deferred, normal inspection, normal rectal tone, heme (-) stool. Absent: decreased rectal tone, heme (+) stool, black stool, bloody stool, fecal impaction, hemorrhoids - Extremities Exam Extremities exam: Present: normal inspection, full ROM - Back Exam Back exam: Present: normal inspection, full ROM. Absent: tenderness, CVA tenderness (R), CVA tenderness (L), muscle spasm, paraspinal tenderness, vertebral tenderness, rash noted - Neurological Exam Neurological exam: Present: alert, oriented X3, normal gait - Psychiatric Psychiatric exam: Present: normal affect, normal mood - Skin Skin exam: Present: warm, dry, intact, normal color. Absent: rash ED Course Vital Signs 06/07/18 06/07/18 06/07/18 08:40 10:29 11:36 Temperature 98.6 F Pulse Rate 109 H Respiratory 20 18 16 Rate Blood Pressure 160/99 O2 Sat by Pulse 98 Oximetry 06/07/18 12:59 Temperature Pulse Rate Respiratory 17 Rate Blood Pressure O2 Sat by Pulse Oximetry - Reevaluation(s) Reevaluation #1: 06/07/18 12:06 Patient is speaking in full sentences with no signs of distress noted. - Consultations Consultation #1: 06/07/18 12:06 Patient has been consulted with Renzo Fairbanks about patient history, physical exam, and labs/CT results and agrees to the ED plan of care and if patient can tolerate fluids with pain undercontrol, discharged ED Medical Decision Making - Lab Data Result diagrams: 06/07/18 10:20 06/07/18 10:20 - Medical Decision Making This is a 28-year-old male that presents with chronic pancreatitis. Patient is stable and was examined by me. Patient discussed with Renzo Fairbanks which agrees to the ED plan of care and discharge. There is slight abdominal tenderness. Negative signs of symptoms of appendicitis. Labs obtained. UA obtained. CT with contrast of abdomen obtained and dictated by the radiologist. Patient is notified of the report with no questions noted by the patient. Vital signs are stable prior to discharge. Patient received medical treatment in the ED which patient stated symptoms has resolved and subsided. A by mouth challenge has been obtained and patient tolerated well with no nausea vomiting. Patient was notified of strict precautions of appendicitis symptoms and to return to the ED if symptoms occurs as soon as possible. Patient was also instructed to Follow- up with a primary care doctor in 3-5 days or if symptoms worsen and continue return to emergency room as soon as possible. At time of discharge, the patient does not seem toxic or ill in appearance. No acute signs of distress noted. Patient agrees to discharge treatment plan of care. No further questions noted by the patient. Critical care attestation.: If time is entered above; I have spent that time in minutes in the direct care of this critically ill patient, excluding procedure time. ED Disposition Clinical Impression: Chronic pancreatitis Qualifiers: Pancreatitis type: unspecified pancreatitis type Qualified Code(s): K86.1 - Other chronic pancreatitis Disposition: TO HOME OR SELFCARE Is pt being admited?: No Does the pt Need Aspirin: No Condition: Stable Instructions: Pancreatitis (ED) Additional Instructions: Follow-up with a primary care doctor in 3-5 days or if symptoms worsen and continue return to emergency room as soon as possible. Prescriptions: Acetaminophen/Codeine [Tylenol /Codeine # 3 tab] 1 tab PO Q6H PRN #12 tab PRN Reason: Pain , Severe (7-10) Ondansetron [Zofran Odt] 4 mg PO Q8HR PRN #20 tab.rapdis PRN Reason: Nausea Referrals: JUNIE FRENCHSKIATOOK MD DANY [Primary Care Provider] - 3-5 Days PRIMARY CAREMD [Referring] - 3-5 Days MARIA VICTORIA GODWIN MD [Staff Physician] - 3-5 Days [facility] [Provider Group] - 3-5 Days Forms: Work/School Release Form(ED)
[2018-06-07 10:31] LABS: Basophils % (Auto) 0.2 % (0.0-1.8); Eosinophils # (Auto) 0.1 K/mm3 (0.0-0.4); Eosinophils % (Auto) 0.8 % (0.0-4.3); Hematocrit 41.4 % (35.5-45.6); Hemoglobin 14.2 gm/dl (11.8-15.2); Lymphocytes # (Auto) 1.2 K/mm3 (1.2-5.4); Lymphocytes % (Auto) 15.7 % (13.4-35.0); Mean Corpuscular HGB Conc 34 % (32-34); Mean Corpuscular Volume 86 fl (84-94); Monocytes # (Auto) 0.4 K/mm3 (0.0-0.8); Monocytes % (Auto) 4.9 % (0.0-7.3); Platelet Count 193 K/mm3 (140-440); Red Cell Distribution Width 13.9 % (13.2-15.2)
[2018-06-07 10:46] LABS: Alanine Aminotransferase 30 units/L (7-56); Albumin 4.8 g/dL (3.9-5); BUN/Creatinine Ratio 22; Blood Urea Nitrogen 20 mg/dL (9-20); Calcium 9.8 mg/dL (8.4-10.2); Hemolysis Index 13
[2018-06-07 11:05] LABS: Bilirubin,Direct < 0.2 mg/dL (0-0.2)
--- NOTE | 2018-06-07 11:41 | Cat Scan Report ---
CT ABDOMEN PELVIS WITH CONTRAST: HISTORY: abdominal pain. COMPARISON: 04/28/18. TECHNIQUE: Helical CT in 1.25mm intervals following IV contrast. Sagittal and coronal reconstructions. FINDINGS: Lung bases: Normal. Liver: Normal. Biliary system: Normal. Pancreas: There are scattered parenchymal calcifications in the proximal pancreas consistent with chronic pancreatitis. No acute inflammatory changes are appreciated. No obvious mass or pseudocyst. Spleen: Normal. Kidneys/ureters/bladder: Normal. Adrenal glands: Normal. Aorta: Normal. Intestines: Within normal limits given no oral contrast was administered. Appendix: Normal. Pelvic viscera: Normal. Ascites: None. Adenopathy: None. Musculoskeletal: Normal. IMPRESSION: Chronic pancreatitis. No acute inflammatory process is identified.
[2018-06-07] MEDS ORDERED: DILAUDID IV ONE (12:38)
[2018-06-07 13:38] LABS: Bilirubin,Urine NEG (Negative); Blood,Urine NEG (Negative); Color,Urine Colorless (Yellow); Protein,Urine <15 mg/dL mg/dL (Negative); RBC,Urine < 1.0 /HPF (0.0-6.0); Urobilinogen,Urine < 2.0 mg/dL (<2.0); WBC,Urine < 1.0 /HPF (0.0-6.0)
== END 2018-06-07 13:53 | disposition home or self-care (01) ==
LOC: ED 08:30
DX: K86.1 Other chronic pancreatitis (principal); I10 Essential (primary) hypertension; F17.200 Nicotine dependence, unspecified, uncomplicated; Z79.899 Other long term (current) drug therapy
CPT/HCPCS: 36415; 74177; 80048; 80076; 81001; 83690; 85025; 96361; 96374; 96375; 96376; 99284; J1170; J2270; J2405; J7030; Q9967

== ENCOUNTER 2018-06-09 06:51 | Inpatient (IN) | payer SELFPAY ==
[2018-06-09] MEDS ORDERED: NACL 0.9% 1000 ML 1,000 ML IV ONE (07:11)
[2018-06-09 07:27] LABS: Basophils % (Auto) 0.4 % (0.0-1.8); Eosinophils # (Auto) 0.1 K/mm3 (0.0-0.4); Hematocrit 39.7 % (35.5-45.6); Hemoglobin 13.6 gm/dl (11.8-15.2); Lymphocytes # (Auto) 1.1 K/mm3 (1.2-5.4); Lymphocytes % (Auto) 22.6 % (13.4-35.0); Mean Corpuscular HGB Conc 34 % (32-34); Mean Corpuscular Volume 86 fl (84-94); Monocytes # (Auto) 0.3 K/mm3 (0.0-0.8); Monocytes % (Auto) 5.9 % (0.0-7.3); Platelet Count 191 K/mm3 (140-440); Red Cell Distribution Width 13.7 % (13.2-15.2)
[2018-06-09] MEDS ORDERED: DILAUDID IV ONE (07:35)
[2018-06-09] MEDS ORDERED: ZOFRAN IV ONE (07:35)
--- NOTE | 2018-06-09 07:36 | Emergency Department Report ---
ED Abdominal Pain HPI - General Chief Complaint: Abdominal Pain Stated Complaint: PANCREATITIS NV Time Seen by Provider: 06/09/18 07:15 Source: patient Mode of arrival: Ambulatory Limitations: No Limitations - History of Present Illness Initial Comments: Patient is a 28-year-old male presents to emergency room with complaints of abdominal pain 3 days. Patient states she was seen here 2 days ago and diagnosed with chronic pancreatitis by CT scan. Patient states he was discharged home with medications however the patient's symptoms have not improve d. Patient states unable to hold any food or water down for the last 3 days. Patient states he pain is worsening. Patient states the pain is a 10 out of 10. Patient states the pain is in his left upper quadrant and is a 10 out of 10. Patient states the pain is nonradiating. Patient denies fever and chills. Patient denies chest pain shortness of breath. MD Complaint: abdominal pain -: Sudden Location: LUQ Radiation: none Migration to: no migration Severity: severe Severity scale (0 -10): 10 Quality: stabbing Consistency: constant Improves With: rest Worsens With: eating, vomiting, movement Associated Symptoms: nausea, vomiting. denies: diarrhea, fever, chills, constipation, dysuria, hematemesis, hematochezia, melena, hematuria, anorexia, syncope Treatments Prior to Arrival: prescription analgesics - Related Data Home Medications Medication Instructions Recorded Confirmed Last Taken ALPRAZolam 1 mg PO BID PRN 06/09/18 06/09/18 Unknown Biktarvy 50-200-25 mg (Nf) 1 tab PO DAILY 06/09/18 06/09/18 Unknown Lunesta 1 mg PO HS 06/09/18 06/09/18 Unknown Previous Rx's Medication Instructions Recorded Last Taken Type Lisinopril [Zestril] 20 mg PO DAILY #30 tablet 03/16/18 Unknown Rx Allergies Allergy/AdvReac Type Severity Reaction Status Date / Time No Known Allergies Allergy Verified 04/05/18 14:10 ED Review of Systems ROS: Stated complaint: PANCREATITIS NV Other details as noted in HPI Constitutional: denies: chills, fever Eyes: denies: eye pain, eye discharge, vision change ENT: denies: ear pain, throat pain Respiratory: denies: cough, shortness of breath, wheezing Cardiovascular: denies: chest pain, palpitations Endocrine: no symptoms reported Gastrointestinal: abdominal pain, nausea, vomiting. denies: diarrhea Genitourinary: denies: urgency, dysuria Musculoskeletal: denies: back pain, joint swelling, arthralgia Skin: denies: rash, lesions Neurological: denies: headache, weakness, paresthesias Psychiatric: denies: anxiety, depression Hematological/Lymphatic: denies: easy bleeding, easy bruising ED Past Medical Hx - Past Medical History Previous Medical History?: Yes Hx Hypertension: Yes Hx HIV: Yes Additional medical history: pancreatitis-- hiv - Surgical History Past Surgical History?: No Hx Coronary Stent: No Hx Open Heart Surgery: No Hx Pacemaker: No Hx Internal Defibrillator: No Hx Cholecystectomy: No Hx Appendectomy: No Hx Breast Surgery: No - Family History Family history: no significant - Social History Smoking Status: Current Every Day Smoker Substance Use Type: None - Medications Home Medications: Home Medications Medication Instructions Recorded Confirmed Last Taken Type Lisinopril [Zestril] 20 mg PO DAILY #30 tablet 03/16/18 06/09/18 Unknown Rx ALPRAZolam 1 mg PO BID PRN 06/09/18 06/09/18 Unknown History Biktarvy 50-200-25 mg (Nf) 1 tab PO DAILY 06/09/18 06/09/18 Unknown History Lunesta 1 mg PO HS 06/09/18 06/09/18 Unknown History ED Physical Exam - General Limitations: No Limitations General appearance: alert, in no apparent distress - Head Head exam: Present: atraumatic, normocephalic - Eye Eye exam: Present: normal appearance - ENT ENT exam: Present: mucous membranes dry - Neck Neck exam: Present: normal inspection - Respiratory Respiratory exam: Present: normal lung sounds bilaterally. Absent: respiratory distress - Cardiovascular Cardiovascular Exam: Present: regular rate, normal rhythm. Absent: systolic murmur, diastolic murmur, rubs, gallop - GI/Abdominal GI/Abdominal exam: Present: soft, tenderness (left upper quadrant tenderness), normal bowel sounds - Rectal Rectal exam: Present: deferred - Extremities Exam Extremities exam: Present: normal inspection - Back Exam Back exam: Present: normal inspection - Neurological Exam Neurological exam: Present: alert, oriented X3 - Psychiatric Psychiatric exam: Present: normal affect, normal mood - Skin Skin exam: Present: warm, dry, intact, normal color. Absent: rash ED Course Vital Signs 06/09/18 06/09/18 06/09/18 07:09 08:10 08:11 Temperature 97.1 F L 98.3 F Pulse Rate 88 89 Respiratory 18 17 17 Rate Blood Pressure 136/90 Blood Pressure 133/90 [Left] O2 Sat by Pulse 97 97 97 Oximetry - Reevaluation(s) Reevaluation #1: Discussed plan of care with patient. Patient agrees with plan of care and admission. Patient will be admitted to the hospitalist service. 06/09/18 08:03 - Consultations Consultation #1: Hospitalist consulted for admission. Hospitalist to admit patient. Hospitalist to assume care patient. Bridge orders placed 06/09/18 08:03 ED Medical Decision Making - Lab Data Result diagrams: 06/09/18 07:15 06/09/18 07:15 - Radiology Data Radiology results: report reviewed CT ABDOMEN PELVIS WITH CONTRAST: HISTORY: abdominal pain. COMPARISON: 04/28/18. TECHNIQUE: Helical CT in 1.25mm intervals following IV contrast. Sagittal and coronal reconstructions. FINDINGS: Lung bases: Normal. Liver: Normal. Biliary system: Normal. Pancreas: There are scattered parenchymal calcifications in the proximal pancreas consistent with chronic pancreatitis. No acute inflammatory changes are appreciated. No obvious mass or pseudocyst. Spleen: Normal. Kidneys/ureters/bladder: Normal. Adrenal glands: Normal. Aorta: Normal. Intestines: Within normal limits given no oral contrast was administered. Appendix: Normal. Pelvic viscera: Normal. Ascites: None. Adenopathy: None. Musculoskeletal: Normal. IMPRESSION: Chronic pancreatitis. No acute inflammatory process is identified. - Medical Decision Making Patient is a 28-year-old male that presents emergency room with complaints of abdominal pain. Patient here 2 days prior had a CT scan which showed chronic pancreatitis. Patient discharged home but symptoms never improved. Patient is here for intractable nausea and vomiting and intractable abdominal pain. Patient will be admitted to the hospitalist service for further evaluation treatment. Patient given pain medications and IV fluids in the ER. Patient agrees with plan of care. Patient's labs unremarkable except for an elevated lipase. - Differential Diagnosis abdominal pain. Pancreatitis. Intractable nausea and vomiting Critical Care Time: Yes Critical care attestation.: If time is entered above; I have spent that time in minutes in the direct care of this critically ill patient, excluding procedure time. Critical Care Time: 35 minutes ED Disposition Clinical Impression: Chronic pancreatitis Qualifiers: Pancreatitis type: unspecified pancreatitis type Qualified Code(s): K86.1 - Other chronic pancreatitis Nausea & vomiting Qualifiers: Vomiting type: unspecified Vomiting Intractability: intractable Qualified Code(s): R11.2 - Nausea with vomiting, unspecified Abdominal pain Qualifiers: Abdominal location: left upper quadrant Qualified Code(s): R10.12 - Left upper quadrant pain Disposition: DC-09 OP ADMIT IP TO THIS HOSP Is pt being admited?: Yes Does the pt Need Aspirin: No Condition: Critical Time of Disposition: 08:02
[2018-06-09 07:45] LABS: Alanine Aminotransferase 31 units/L (7-56); Albumin 4.6 g/dL (3.9-5); BUN/Creatinine Ratio 16; Blood Urea Nitrogen 16 mg/dL (9-20); Calcium 9.2 mg/dL (8.4-10.2); Hemolysis Index 6
--- NOTE | 2018-06-09 08:54 | History and Physical Report ---
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 He was discharged home on 06/07/18 from ED but returns today with severe worsening sharp constant epigastric to radiating to LLQ abdominal pains x 3-4 days. He denies any alcohol use. He states HIV meds were changed recently. PMH: as hpi PSH: Anal fistula repair surgery 2017 SH: prior alcohol abuse but doesn't drink now, 1pp wk tobacco, no illegal drugs FH: hypertension, paternal grandfather had pancreatitis ROS: Constitutional: denies: fever ENT: denies: throat or neck pain Respiratory: denies: cough, shortness of breath Cardiovascular: denies: chest pain Endocrine: denies unexplained weight loss or gain Gastrointestinal: + abdominal pain, nausea, +blood stools Genitourinary: denies: dysuria Rectal: denies no incontinence, no bleeding, no itching, no discharge Musculoskeletal: denies swelling, myaglia, muscle weakness Skin: denies: rash Neurological: denies: headache Hematological/Lymphatic: denies: easy bleeding or easy bruising Allergic/Immunologic: no urticaria, no allergic rhinitis, no anaphylaxis Psych: denies sadness or hopelessness, SI/HI Medications and Allergies Allergies Allergy/AdvReac Type Severity Reaction Status Date / Time No Known Allergies Allergy Verified 04/05/18 14:10 Home Medications Medication Instructions Recorded Confirmed Last Taken Type Lisinopril [Zestril] 20 mg PO DAILY #30 tablet 03/16/18 06/09/18 Unknown Rx ALPRAZolam 1 mg PO BID PRN 06/09/18 06/09/18 Unknown History Biktarvy 50-200-25 mg (Nf) 1 tab PO DAILY 06/09/18 06/09/18 Unknown History Lunesta 1 mg PO HS 06/09/18 06/09/18 Unknown History Active Meds: Active Medications Sodium Chloride (Nacl 0.9% 1000 Ml) 1,000 mls @ 250 mls/hr IV ONCE ONE Stop: 06/09/18 11:10 Last Admin: 06/09/18 08:02 Dose: 250 mls/hr Documented by: Exam - Physical Exam Narrative exam: Gen: WDWN, NAD, Awake, Alert, Orientated HEENT: NCAT, EOMI, PERRL, OP Clear Neck: supple, no adenopathy, no thyromegaly, no JVD CVS/Heart: RRR, normal S1S2, pulses present bilaterally Chest/Lungs: CTA B, Symmetrical chest expansion, good air entry bilaterally GI/Abdomen: soft, epigastric tenderness, no distension, good bowel sounds, no guarding or rebound /Bladder: no suprapubic tenderness, no CVA or paraspinal tenderness Extermity/Skin: no c/c/e, no obvious rash MSK: FROM x 4 Neuro: CN 2-12 grossly intact, no new focal deficits Psych: calm - Constitutional Vitals: Temp Pulse Resp BP Pulse Ox 98.3 F 89 17 133/90 97 06/09/18 08:10 06/09/18 08:10 06/09/18 08:11 06/09/18 08:10 06/09/18 08:11 Results - Labs CBC & Chem 7: 06/10/18 05:26 06/10/18 05:26 Labs: Abnormal lab results 06/09/18 06/09/18 Range/Units 07:15 07:15 Lymph # 1.1 L (1.2-5.4) K/mm3 Carbon Dioxide 21 L (22-30) mmol/L Glucose 104 H (75-100) mg/dL Lipase 297 H (13-60) units/L Assessment and Plan Patient is a 28 yo man with a 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 He was discharged home on 06/07/18 from ED but returns today with severe worsening sharp constant epigastric to radiating to LLQ abdominal pains x 3-4 days. He denies any alcohol use. He states HIV meds were changed recently. * 06/07/18 CT ABDOMEN PELVIS WITH CONTRAST: HISTORY: abdominal pain. COMPARISON: 04/28/18. TECHNIQUE: Helical CT in 1.25mm intervals following IV contrast. Sagittal and coronal reconstructions. FINDINGS: Lung bases: Normal. Liver: Normal. Biliary system: Normal. Pancreas: There are scattered parenchymal calcifications in the proximal pancreas consistent with chronic pancreatitis. No acute inflammatory changes are appreciated. No obvious mass or pseudocyst. Spleen: Normal. Kidneys/ureters bladder: Normal. Adrenal glands: Normal. Aorta: Normal. Intestines: Within normal limits given no oral contrast was administered. Appendix: Normal. Pelvic viscera: Normal. Ascites: None. Adenopathy: None. Musculoskeletal: Normal. IMPRESSION: Chronic pancreatitis. No acute inflammatory process is identified. -Acute on chronic pancreatitis: consult GI, NPO, ivf and iv narcotics -Rectal bleeding with normal H/H: consulted GI -HIV: consulted ID, the new HIV causing pancreatitis exacerbations -HTN: prn iv anti-hypertensives -Suspected pancreatic insufficiency
[2018-06-09] MEDS ORDERED: ZOFRAN IV PRN (09:36)
[2018-06-09] MEDS ORDERED: DILAUDID ONE (09:57)
[2018-06-09 10:05] LABS: Bilirubin,Urine NEG (Negative); Blood,Urine NEG (Negative); Color,Urine Yellow (Yellow); Mucus,Urine FEW /HPF; Protein,Urine <15 mg/dL mg/dL (Negative); Urobilinogen,Urine < 2.0 mg/dL (<2.0)
--- NOTE | 2018-06-09 10:08 | Gastroenterology Consultation ---
History of Present Illness - Reason for Consult Consult date: 06/09/18 rectal bleed, pancreatitis Requesting physician: MAKENNA MCLEAN - History of Present Illness Patient is a 28 y/o male with PMH of HIV, HTN, pancreatitis, chronic pain, abscess left armpit (s/p surgical drainage), depression, and medical non- compliance who presented to ED with c/o continued LUQ abd pain with associated N/V x 3 days after recently being evaluated here 2 days ago for similar symptoms and was dx with chronic pancreatitis seen on CT and d/c home with pain medications (he has had multiple prior hospital visits for similar symptoms with recommendations to f/u with GI as outpatient to which he did not do). This morning patient was resting on stretcher w/o acute distress with c/o continued LUQ abd pain and N/V with non-bloody emesis. Symptoms are exacerbated with PO intake. He reports being first being diagnosed with pancreatitis 2/2 alcohol last year in 2018 while living in [place], [place] with intermittent flares since that time. His last drink of alcohol was 2 months ago per pt report. Admits to chronic intermittent loose stools and occasional rectal bleeding with scant amount of bright red blood. Underwent an anal surgery in 2017 following a colonoscopy (records unavailable) for drainage/repair on anal abscess (patient is unsure if he had a fistula). No hx of IBD. Denies fever, CP, SOB, wt loss, jaundice, hematemesis, melena, or constipation. Past History Past Medical History: other (as per HPI) Past Surgical History: Other (anal surgery (abscess vs fistula?) 2017) Social history: smoking, alcohol abuse (no alcohol in 2 months per pt report) Medications and Allergies Allergies Allergy/AdvReac Type Severity Reaction Status Date / Time No Known Allergies Allergy Verified 04/05/18 14:10 Home Medications Medication Instructions Recorded Confirmed Last Taken Type Benzonatate [Tessalon Perles] 100 mg PO Q8HR PRN #20 capsule 03/16/18 Unknown Rx Fluticasone [Flonase] 1 spray NS QDAY #1 bottle 03/16/18 Unknown Rx Lisinopril [Zestril] 20 mg PO DAILY #30 tablet 03/16/18 Unknown Rx Oseltamivir Phosphate [Tamiflu] 75 mg PO BID #10 capsule 03/16/18 Unknown Rx Sulfamethoxazole/Trimethoprim 1 each PO BID #14 tablet 03/16/18 Unknown Rx [Bactrim DS TAB] Abacavir/Dolutegravir/Lamivudi 1 each PO DAILY #30 tablet 04/05/18 Unknown Rx [Triumeq 600-50-300 mg Tablet] Dicyclomine [Bentyl] 20 mg PO DAILY #20 tablet 04/05/18 Unknown Rx Ondansetron [Zofran ODT TAB] 4 mg PO Q8HR PRN #10 tab.rapdis 04/05/18 Unknown Rx HYDROcodone/APAP 5-325 [[place] 1 each PO Q6HR PRN #12 tablet 04/24/18 Unknown Rx 5/325] Ibuprofen [Motrin] 600 mg PO Q8H PRN #20 tablet 04/24/18 Unknown Rx Ondansetron [Zofran Odt] 4 mg PO Q8HR PRN #10 tab.rapdis 04/24/18 Unknown Rx Famotidine [Pepcid] 20 mg PO BID #60 tablet 04/28/18 Unknown Rx Ondansetron [Zofran Odt] 4 mg PO Q8HR PRN #12 tab.rapdis 04/28/18 Unknown Rx Tramadol HCl [Ultram] 50 mg PO QID PRN #12 tablet 04/28/18 Unknown Rx Acetaminophen/Codeine [Tylenol 1 tab PO Q6H PRN #12 tab 06/07/18 Unknown Rx /Codeine # 3 tab] Ondansetron [Zofran Odt] 4 mg PO Q8HR PRN #20 tab.rapdis 06/07/18 Unknown Rx Active Meds: Active Medications Heparin Sodium (Porcine) (Heparin) 5,000 unit SUB-Q Q12HR SHERMAN Hydromorphone HCl (Dilaudid) 1 mg IV Q4H PRN PRN Reason: Pain , Severe (7-10) Sodium Chloride (Nacl 0.9% 1000 Ml) 1,000 mls @ 250 mls/hr IV ONCE ONE Stop: 06/09/18 11:10 Last Admin: 06/09/18 08:02 Dose: 250 mls/hr Documented by: Dextrose/Sodium Chloride (D5/0.45ns) 1,000 mls @ 100 mls/hr IV DIRECT SHERMAN Ondansetron HCl (Zofran) 4 mg IV Q4H PRN PRN Reason: Nausea And Vomiting medications reviewed/updated as required Review of Systems - Review of Systems All systems: negative Gastrointestinal: abdominal pain, nausea, vomiting, other (chronic loose stools) Exam - Constitutional Vital Signs: Temp Pulse Resp BP Pulse Ox 98.3 F 89 17 133/90 97 06/09/18 08:10 06/09/18 08:10 06/09/18 08:11 06/09/18 08:10 06/09/18 08:11 General appearance: no acute distress - EENT Eyes: PERRL, EOM intact ENT: hearing intact - Respiratory Respiratory: bilateral: CTA - Cardiovascular Rhythm: regular - Gastrointestinal General gastrointestinal: Present: soft, tender (LUQ), non-distended, normal bowel sounds - Neurologic Neurological: alert and oriented x3 - Labs CBC & Chem 7: 06/09/18 07:15 06/09/18 07:15 Lab Results: Laboratory Results - last 24 hr 06/09/18 06/09/18 06/09/18 07:15 07:15 Unknown WBC 4.9 RBC 4.60 Hgb 13.6 Hct 39.7 MCV 86 MCH 30 MCHC 34 RDW 13.7 Plt Count 191 Lymph % (Auto) 22.6 [place] % (Auto) 5.9 Eos % (Auto) 3.0 Baso % (Auto) 0.4 Lymph # 1.1 L [place] # 0.3 Eos # 0.1 Baso # 0.0 Seg Neutrophils % 68.1 Seg Neutrophils # 3.3 Sodium 137 Potassium 4.1 Chloride 102.5 Carbon Dioxide 21 L Anion Gap 18 BUN 16 Creatinine 1.0 Estimated GFR > 60 BUN/Creatinine Ratio 16 Glucose 104 H Calcium 9.2 Total Bilirubin 0.60 AST 33 ALT 31 Alkaline Phosphatase 57 Total Protein 7.8 Albumin 4.6 Albumin/Globulin Ratio 1.4 Lipase 297 H Urine Bilirubin Neg Urine RBC (Auto) 1.0 Assessment and Plan 1.LUQ abd pain 2.N/V 3.H/o chronic pancreatitis 2/2 alcohol -afebrile -WBC WNL -LFTs WNL -lipase 297 -abd CT 06/07 showed chronic pancreatitis -etiology-most likely 2/2 pancreatitis -abd U/S -triglyceride level and CRP in am -Keep NPO for now -start on trial of pancreatic enzymes for chronic loose stools (likely 2/2 pancreatic insufficiency) -continue to trend labs and supportive care with IVF, pain medications, antiemetics, etc. -need for continue alcohol abstinence discussed/encouraged with patient (no alcohol in 2 months per pt report) -will follow 4.GI bleed/hematochezia 5.H/o anal surgery in 2017 (abscess; possible fistula?) -H/H WNL (13.6/39.7) -continue to monitor H/H and transfuse as needed -no active signs of bleeding this am -last colonoscopy in 2017 in [place] per pt report (results unavailable) -etiology-likely anorectal in origin -no plans for repeat colonoscopy at this time (consider based on progress) -continue supportive care -will follow
[2018-06-09] MEDS: DILAUDID IV PRN ×4 (10:15→21:30)
[2018-06-09] MEDS ORDERED: CREON DR 6,000 UNITS PO SCH (11:30)
[2018-06-09] MEDS: BENADRYL IV PRN ×2 (11:59→19:03)
--- NOTE | 2018-06-09 12:18 | Consultation ---
History of Present Illness - Reason for Consult Consult date: 06/09/18 Pancreatitis, ?HIV drugs contributing? Requesting physician: MAKENNA GABRIEL - History of Present Illness The patient is a 28-year-old male with HIV, hypertension, chronic pancreatitis, depression presented to the emergency room with complaints of abdominal pain, nausea and vomiting going on for the last few days. He has been seen in the hospital ER multiple times over the last 6 months with abdominal pain associated with chronic pancreatitis. He had been seen in the ER 2 days prior and was dis charged home with pain medications, however, since he was unable to keep any food or liquid down, he presented to the hospital and was admitted. Infectious diseases was consulted to evaluate whether his HIV medications are contributing to the pancreatitis. He originally was diagnosed with HIV in 2014, following that, he indulged in drinking significant alcohol and in 2015, he was first diagnosed with acute pancreatitis, likely from alcohol. Since then, he has continued to have intermittent acute episodes requiring ER visits and hospitalizations. Regarding his HIV therapy, he used to be on Triumeq, most recent viral load he states is undetectable and CD4 count around 590. He follows up with an HIV clinic in [facility], apparently it is a [facility] clinic. Last month, he was switch ed to Biktarvy due to intolerance to Triumeq and likes his new regimen. Review of Systems: General: no fevers,chills or rigors HEENT: no new visual disturbance Respiratory: No cough, sputum, hemoptysis or shortness of breath Cardiovascular: No chest pain, syncope Gastrointestinal: + for nausea, vomiting, abdominal pain Genitourinary: No dysuria or hematuria Musculoskeletal: No new or worsening neck pain or back pain Neurologic: No headaches, seizures Hematologic: No easy bruising or bleeding Endocrine: No night sweats or acute weight loss Skin: negative for rash, jaundice Psychiatric: No suicidal or homicidal ideation Past History Past Medical History: other (as per HPI) Past Surgical History: Other (anal surgery (abscess vs fistula?) 2016) Social history: smoking, alcohol abuse (no alcohol in 2 months per pt report) Medications and Allergies Allergies Allergy/AdvReac Type Severity Reaction Status Date / Time No Known Allergies Allergy Verified 04/05/18 14:10 Home Medications Medication Instructions Recorded Confirmed Last Taken Type Lisinopril [Zestril] 20 mg PO DAILY #30 tablet 03/16/18 06/09/18 Unknown Rx ALPRAZolam 1 mg PO BID PRN 06/09/18 06/09/18 Unknown History Biktarvy 50-200-25 mg (Nf) 1 tab PO DAILY 06/09/18 06/09/18 Unknown History Lunesta 1 mg PO HS 06/09/18 06/09/18 Unknown History Active Meds: Active Medications Lipase/Protease/Amylase ([place] Dr 6,000 Units) 12 each PO AC SHERMAN Diphenhydramine HCl (Benadryl) 25 mg IV Q6H PRN PRN Reason: Itching Last Admin: 06/09/18 11:59 Dose: 25 mg Documented by: Heparin Sodium (Porcine) (Heparin) 5,000 unit SUB-Q Q12HR SHERMAN Hydromorphone HCl (Dilaudid) 1 mg IV Q4H PRN PRN Reason: Pain , Severe (7-10) Last Admin: 06/09/18 10:15 Dose: 1 mg Documented by: Dextrose/Sodium Chloride (D5/0.45ns) 1,000 mls @ 100 mls/hr IV DIRECT SHERMAN Ondansetron HCl (Zofran) 4 mg IV Q4H PRN PRN Reason: Nausea And Vomiting Physical Examination - Physical Exam Narrative exam: Physical Exam: Constitutional: Alert, cooperative. No acute distress Head, Ears, Nose: Normocephalic, atraumatic. External ears, nose normal Eyes: Conjunctivae/corneas clear. No icterus. No ptosis. Neck: Supple, no meningeal signs Oral: dentition fair, no thrush Cardiovascular: S1, S2 normal. Respiratory: Good air entry, clear to auscultation bilaterally GI: Soft, diffusely tender; bowel sounds normal. No peritoneal signs Musculoskeletal: No pedal edema, no cyanosis. Skin: No rash or abscess Hem/Lymphatic: No palpable cervical or supraclavicular nodes. No lymphangitis Psych: Mood ok. Affect normal Neurological: Awake, alert, oriented. No gross abnormality - Constitutional Vitals: Vital Signs Temp Pulse Resp BP Pulse Ox 98.3 F 89 17 133/90 97 06/09/18 08:10 06/09/18 08:10 06/09/18 08:11 06/09/18 08:10 06/09/18 08:11 Temperature -Last 24 Hours Temperature 98.3 F Temperature 97.1 F Results - Labs CBC & Chem 7: 06/09/18 07:15 06/09/18 07:15 Labs: Abnormal lab results 06/09/18 06/09/18 06/09/18 Range/Units 07:15 07:15 Unknown Lymph # 1.1 L (1.2-5.4) K/mm3 Carbon Dioxide 21 L (22-30) mmol/L Glucose 104 H (75-100) mg/dL Lipase 297 H (13-60) units/L Urine pH 8.0 H (5.0-7.0) Urine WBC (Auto) 17.0 H (0.0-6.0) /HPF - Imaging and Cardiology CT scan - abdomen: report reviewed, image reviewed (calcifications in pancreas consistent with chronic pancreatitis.) Assessment and Plan Cultures: None this admission A/P: 28-year-old male with HIV, hypertension, chronic pancreatitis, depression. Admitted with: 1) Acute on chronic pancreatitis: GI following. First diagnosis was made in 2015 and etiology was thought to be alcohol related. Patient's last drink was apparently 2 months ago. While anti-retroviral drugs as have been associated with acute pancreatitis, mainly the NRTI drugs but more so the older ones, the overall incidence generally tends to be low especially with his recent regimen of Triumeq which was switched last month to Biktarvy. Drug induced pancreatitis val from ARVs is a diagnosis of exclusion, if other causes of pancreatitis are not identified (in this case, alcohol seems the likely etiology). Since he already has chronic pancreatitis, I would not recommending changing/stopping his ARVs. Also, the recent switch from Triumeq to Biktarvy does not seem to have made a difference in reducing his "flare-ups". 2) HIV: viral load here in January 2018 was 280, CD4 was 285 (31%). Per patient, his most recent viral load was undetectable and CD4 count around 590. He follows up with an HIV clinic in [facility], apparently it is a [facility] clinic. Recs: Continue Biktarvy (non formulary), patient has his own supply d/w Dr. Gabriel. MD Nick Herrera [facility] C: [phone] O: [phone] F: [phone]
[2018-06-09] MEDS: D5/0.45NS 1,000 ML IV SCH (12:55)
--- NOTE | 2018-06-09 15:45 | Ultrasound Report ---
ULTRASOUND ABDOMEN INDICATION: Abdominal pain, nausea, vomiting, chronic pancreatitis. COMPARISON: 06/07/2018 CT and 02/03/2018 US. FINDINGS: Abdominal sonography suggests slight diffuse nonspecific hepatic coarsening without definite focal suspicious lesions or biliary dilatation. Preserved hepatic contours. A junctional fold towards gallbladder neck may again be noted with subtle sludge questioned versus technical artifact. No definite shadowing gallstones, pericholecystic fluid or positive sonographic Cam's sign. Gallbladder wall thickness is 2.7 mm. CBD caliber is 3.2 mm. Homogenous spleen, 10 cm in length. No ascites. Grossly normal imaged pancreatic contours with few subtle echogenicities in the region of the head consistent with known calcifications. Normal imaged IVC and abdominal aorta. Top normal renal cortical echogenicity. No hydronephrosis. Right kidney is 9.5 x 4.8 x 5.7 cm with cortical thickness of 1.7 cm. The left kidney is 10.8 x 5.3 x 6.2 cm with cortical thickness of 1.7 cm. CONCLUSION: No acute abdominal sonographic abnormality with few other findings in this patient with known chronic pancreatitis, as described. Thank you for the opportunity to participate in this patient's care.
[2018-06-09] MEDS: ATIVAN IV PRN (17:27)
[2018-06-09] MEDS: CREON DR 12,000 UNITS PO SCH (18:58)
[2018-06-09] MEDS ORDERED: BENTYL IM ONE (23:19)
[2018-06-10] MEDS: DILAUDID IV PRN ×5 (02:18→20:23)
[2018-06-10] MEDS: BENADRYL IV PRN ×2 (02:18→09:20)
[2018-06-10] MEDS: D5/0.45NS 1,000 ML IV SCH ×2 (04:47→14:42)
[2018-06-10 05:43] LABS: Hematocrit 38.7 % (35.5-45.6); Hemoglobin 13.1 gm/dl (11.8-15.2); Mean Corpuscular HGB Conc 34 % (32-34); Mean Corpuscular Volume 88 fl (84-94); Platelet Count 157 K/mm3 (140-440); Red Blood Count 4.42 M/mm3 (3.65-5.03); Red Cell Distribution Width 13.6 % (13.2-15.2)
[2018-06-10 06:30] LABS: Alanine Aminotransferase 28 units/L (7-56); Albumin 4.3 g/dL (3.9-5); BUN/Creatinine Ratio 13; Blood Urea Nitrogen 13 mg/dL (9-20); Calcium 9.1 mg/dL (8.4-10.2); Chol/HDL Ratio 2.72 %; HDL Cholesterol 55 mg/dL (40-59); Hemolysis Index 11; LDL Cholesterol,Direct 87 mg/dL (50-130)
[2018-06-10 06:45] LABS: Bilirubin,Direct < 0.2 mg/dL (0-0.2)
[2018-06-10] MEDS: ATIVAN IV PRN ×2 (06:52→20:29)
[2018-06-10] MEDS ORDERED: NON-FORMULARY (Alprazolam 1 MG) PO PRN (07:21)
--- NOTE | 2018-06-10 07:21 | Progress Note ---
Assessment and Plan Assessment and plan: Patient is a 28 yo man with a history of Alcohol pancreatitis leading to chronic pancreatitis, depression, hypertension and HIV who initially presented to [facility] ED on 06/07/18 with abdominal pains. He was discharged home on 06/07/18 from ED but returns today with severe worsening sharp constant epigastric to radiating to LLQ abdominal pains x 3-4 days. He denies any alcohol use. He states HIV meds were changed recently. * 06/07/18 CT ABDOMEN PELVIS WITH CONTRAST: HISTORY: abdominal pain. COMPARISON: 04/28/18. TECHNIQUE: Helical CT in 1.25mm intervals following IV contrast. Sagittal and coronal reconstructions. FINDINGS: Lung bases: Normal. Liver: Normal. Biliary system: Normal. Pancreas: There are scattered parenchymal calcifications in the proximal pancreas consistent with chronic pancreatitis. No acute inflammatory changes are appreciated. No obvious mass or pseudocyst. Spleen: Normal. Kidneys/ureters bladder: Normal. Adrenal glands: Normal. Aorta: Normal. Intestines: Within normal limits given no oral contrast was administered. Appendix: Normal. Pelvic viscera: Normal. Ascites: None. Adenopathy: None. Musculoskeletal: Normal. IMPRESSION: Chronic pancreatitis. No acute inflammatory process is identified. -Acute on chronic pancreatitis: consult GI, switch to clears, ivf and iv narcotics -Rectal bleeding with normal H/H: consulted GI -HIV: restart HIV when diet starts -HTN: prn iv anti-hypertensives -Suspected pancreatic insufficiency anticipated discharge tomorrow if he tolerates diet History Interval history: Patient was seen and examined. Follow-up on current diagnosis of Pancreatitis. Overnight uneventful. Patient denies any chest pain, shortness breath, nausea/vomiting or severe headaches. Imaging, nursing note, chart, labs and old chart reviewed. Discussed with patient. Hospitalist Physical - Physical exam Narrative exam: Gen: WDWN, NAD, Awake, Alert, Orientated HEENT: NCAT, EOMI, PERRL, OP Clear Neck: supple, no adenopathy, no thyromegaly, no JVD CVS/Heart: RRR, normal S1S2, pulses present bilaterally Chest/Lungs: CTA B, Symmetrical chest expansion, good air entry bilaterally GI/Abdomen: soft, epigastric tenderness, no distension, good bowel sounds, no guarding or rebound /Bladder: no suprapubic tenderness, no CVA or paraspinal tenderness Extermity/Skin: no c/c/e, no obvious rash MSK: FROM x 4 Neuro: CN 2-12 grossly intact, no new focal deficits Psych: calm - Constitutional Vitals: Temp Pulse Resp BP Pulse Ox 98.1 F 75 20 135/90 100 06/10/18 06:24 06/10/18 06:24 06/10/18 06:24 06/10/18 06:24 06/10/18 06:24 Results - Labs CBC & Chem 7: 06/10/18 05:26 06/10/18 05:26 Labs: Laboratory Last Values WBC 5.1 K/mm3 (4.5-11.0) 06/10/18 05:26 RBC 4.42 M/mm3 (3.65-5.03) 06/10/18 05:26 Hgb 13.1 gm/dl (11.8-15.2) 06/10/18 05:26 Hct 38.7 % (35.5-45.6) 06/10/18 05:26 MCV 88 fl (84-94) 06/10/18 05:26 MCH 30 pg (28-32) 06/10/18 05:26 MCHC 34 % (32-34) 06/10/18 05:26 RDW 13.6 % (13.2-15.2) 06/10/18 05:26 Plt Count 157 K/mm3 (140-440) 06/10/18 05:26 Lymph % (Auto) 22.6 % (13.4-35.0) 06/09/18 07:15 [place] % (Auto) 5.9 % (0.0-7.3) 06/09/18 07:15 Eos % (Auto) 3.0 % (0.0-4.3) 06/09/18 07:15 Baso % (Auto) 0.4 % (0.0-1.8) 06/09/18 07:15 Lymph # 1.1 K/mm3 (1.2-5.4) L 06/09/18 07:15 [place] # 0.3 K/mm3 (0.0-0.8) 06/09/18 07:15 Eos # 0.1 K/mm3 (0.0-0.4) 06/09/18 07:15 Baso # 0.0 K/mm3 (0.0-0.1) 06/09/18 07:15 Seg Neutrophils % 68.1 % (40.0-70.0) 06/09/18 07:15 Seg Neutrophils # 3.3 K/mm3 (1.8-7.7) 06/09/18 07:15 Sodium 138 mmol/L (137-145) 06/10/18 05:26 Potassium 4.0 mmol/L (3.6-5.0) 06/10/18 05:26 Chloride 103.9 mmol/L (98-107) 06/10/18 05:26 Carbon Dioxide 22 mmol/L (22-30) 06/10/18 05:26 Anion Gap 16 mmol/L 06/10/18 05:26 BUN 13 mg/dL (9-20) 06/10/18 05:26 Creatinine 1.0 mg/dL (0.8-1.5) 06/10/18 05:26 Estimated GFR > 60 ml/min 06/10/18 05:26 BUN/Creatinine Ratio 13 % 06/10/18 05:26 Glucose 98 mg/dL (75-100) 06/10/18 05:26 Calcium 9.1 mg/dL (8.4-10.2) 06/10/18 05:26 Total Bilirubin 0.40 mg/dL (0.1-1.2) 06/10/18 05:26 Direct Bilirubin < 0.2 mg/dL (0-0.2) 06/10/18 05:26 Indirect Bilirubin 0.2 mg/dL 06/10/18 05:26 AST 38 units/L (5-40) 06/10/18 05:26 ALT 28 units/L (7-56) 06/10/18 05:26 Alkaline Phosphatase 53 units/L (35-129) 06/10/18 05:26 C-Reactive Protein 0.50 mg/dL (0.00-1.30) 06/10/18 05:26 Total Protein 7.2 g/dL (6.3-8.2) 06/10/18 05:26 Albumin 4.3 g/dL (3.9-5) 06/10/18 05:26 Albumin/Globulin Ratio 1.5 % 06/10/18 05:26 Triglycerides 134 mg/dL (2-149) 06/10/18 05:26 Cholesterol 150 mg/dL (50-199) 06/10/18 05:26 LDL Cholesterol Direct 87 mg/dL (50-130) 06/10/18 05:26 HDL Cholesterol 55 mg/dL (40-59) 06/10/18 05:26 Cholesterol/HDL Ratio 2.72 % 06/10/18 05:26 Lipase 160 units/L (13-60) H 06/10/18 05:26 Urine Color Yellow (Yellow) 06/09/18 Unknown Urine Turbidity Clear (Clear) 06/09/18 Unknown Urine pH 8.0 (5.0-7.0) H 06/09/18 Unknown Ur Specific [place] 1.011 (1.003-1.030) 06/09/18 Unknown Urine Protein <15 mg/dl mg/dL (Negative) 06/09/18 Unknown Urine Glucose (UA) Neg mg/dL (Negative) 06/09/18 Unknown Urine Ketones Neg mg/dL (Negative) 06/09/18 Unknown Urine Blood Neg (Negative) 06/09/18 Unknown Urine Nitrite Neg (Negative) 06/09/18 Unknown Urine Bilirubin Neg (Negative) 06/09/18 Unknown Urine Urobilinogen < 2.0 mg/dL (<2.0) 06/09/18 Unknown Ur Leukocyte Esterase Tr (Negative) 06/09/18 Unknown Urine WBC (Auto) 17.0 /HPF (0.0-6.0) H 06/09/18 Unknown Urine RBC (Auto) 1.0 /HPF (0.0-6.0) 06/09/18 Unknown Urine Mucus Few /HPF 06/09/18 Unknown
[2018-06-10] MEDS: CREON DR 12,000 UNITS PO SCH ×3 (08:17→19:42)
[2018-06-10] MEDS: ZESTRIL PO SCH (09:19)
[2018-06-10] MEDS: HEPARIN SUB-Q SCH ×2 (09:20→22:01)
[2018-06-10] MEDS: PERCOCET 5/325 PO PRN (11:57)
[2018-06-10] MEDS: XANAX PO PRN (14:43)
[2018-06-10] MEDS ORDERED: NORCO 10/325 PO PRN (14:55)
--- NOTE | 2018-06-10 15:53 | Progress Note ---
Assessment and Plan 1. 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 Given young age, consider autoimmune or familial, though pt gives fam hx primarily for pancreatic cancer. Pt has pain, with elevated lipase. No indication of operable disease on CT imaging. May well have chronic pain, and will need to cope with this appropriately. Psychosocial issues are an exacerbating factor, and pt is to see Psychiatry. - adv diet - may eventually need outpatient Pain Management if has chronic pain, though better psychiatric care may help with coping of pain - would check IgG4 and genetic testing as outpatient 2. Rectal bleed - likely hemorrhoidal. Rectal exam shows scar from prior trauma requiring surgery, and hemorrhoids. Only brown stool, with no blood noted. Subjective Date of service: 06/10/18 Interval history: Pt complains of ongoing abd pain. Dressed in street clothes and walking about room, with partner at bedside. Complains of BRBPR with every BM. Objective - Constitutional Vitals: Vital Signs - 12hr 06/10/18 06/10/18 06/10/18 05:52 06:24 09:19 Temperature 98.1 F Pulse Rate 75 Respiratory 20 20 Rate Blood Pressure 135/90 130/90 O2 Sat by Pulse 100 Oximetry 06/10/18 11:19 Temperature 98.2 F Pulse Rate 82 Respiratory 20 Rate Blood Pressure 133/88 O2 Sat by Pulse 100 Oximetry General appearance: Present: no acute distress - EENT Eyes: PERRL, EOM intact ENT: hearing intact - Respiratory Respiratory effort: normal - Gastrointestinal General gastrointestinal: Present: soft, tender (mild, in epigastrium and LUQ) - Labs CBC & Chem 7: 06/10/18 05:26 06/10/18 05:26 Labs: Abnormal lab results 06/10/18 Range/Units 05:26 Lipase 160 H (13-60) units/L Medications & Allergies - Medications Allergies/Adverse Reactions: Allergies No Known Allergies Allergy (Verified 04/05/18 14:10) Home Medications: Home Medications Medication Instructions Recorded Confirmed Last Taken Type Lisinopril [Zestril] 20 mg PO DAILY #30 tablet 03/16/18 06/09/18 Unknown Rx ALPRAZolam 1 mg PO BID PRN 06/09/18 06/09/18 Unknown History Biktarvy 50-200-25 mg (Nf) 1 tab PO DAILY 06/09/18 06/09/18 Unknown History Lunesta 1 mg PO HS 06/09/18 06/09/18 Unknown History Active Medications: Generic Name Dose Route Start Last Admin Trade Name Markq PRN Reason Stop Dose Admin Acetaminophen/Hydrocodone Bitart 1 each 06/10/18 14:55 [place]y 10/325 PO Q4H PRN Pain , Severe (7-10) Alprazolam 1 mg 06/10/18 07:38 06/10/18 14:43 Xanax PO 1 mg BID PRN Administration Anxiety Lipase/Protease/Amylase 6 each 06/09/18 16:30 06/10/18 11:[address] 12,000 Units PO 6 each AC SHERMAN Administration Diphenhydramine HCl 25 mg 06/09/18 10:47 06/10/18 09:20 Benadryl IV 25 mg Q6H PRN Administration Itching Heparin Sodium (Porcine) 5,000 unit 06/10/18 10:00 06/10/18 09:20 Heparin SUB-Q 5,000 unit Q12HR SHERMAN Administration Hydromorphone HCl 1 mg 06/09/18 18:42 06/10/18 14:43 Dilaudid IV 1 mg Q3H PRN Administration Pain , Severe (7-10) Dextrose/Sodium Chloride 1,000 mls @ 100 mls/hr 06/09/18 10:00 06/10/18 14:42 D5/0.45ns IV 100 mls/hr DIRECT SHERMAN Administration Lisinopril 20 mg 06/10/18 10:00 06/10/18 09:19 Zestril PO 20 mg DAILY SHERMAN Administration Lorazepam 0.5 mg 06/09/18 14:58 06/10/18 06:52 Ativan IV 0.5 mg Q8H PRN Administration Anxiety Miscellaneous Medication 1 tab 06/10/18 14:00 Biktarvy 50-200-25 Mg (Nf) PO DAILY SHERMAN Ondansetron HCl 4 mg 06/09/18 09:36 Zofran IV Q4H PRN Nausea And Vomiting Oxycodone/Acetaminophen 1 tab 06/10/18 11:29 06/10/18 11:57 Percocet 5/325 PO 1 tab Q4H PRN Administration Pain, Moderate (4-6)
[2018-06-10] MEDS: BIKTARVY PO SCH (15:55)
[2018-06-11] MEDS: DILAUDID IV PRN ×3 (03:14→11:44)
[2018-06-11] MEDS: BENADRYL IV PRN (03:18)
[2018-06-11 05:24] LABS: Hematocrit 37.3 % (35.5-45.6); Hemoglobin 13.2 gm/dl (11.8-15.2); Mean Corpuscular HGB Conc 35 % (32-34); Mean Corpuscular Volume 86 fl (84-94); Platelet Count 181 K/mm3 (140-440); Red Blood Count 4.33 M/mm3 (3.65-5.03); Red Cell Distribution Width 13.8 % (13.2-15.2)
[2018-06-11 05:44] LABS: BUN/Creatinine Ratio 11; Blood Urea Nitrogen 12 mg/dL (9-20); Calcium 9.3 mg/dL (8.4-10.2); Hemolysis Index 10
[2018-06-11 06:33] VITALS: BP 132/96
[2018-06-11] MEDS: PERCOCET 5/325 PO PRN (08:45)
[2018-06-11] MEDS: CREON DR 12,000 UNITS PO SCH ×2 (08:45→11:44)
[2018-06-11] MEDS: XANAX PO PRN (08:49)
[2018-06-11] MEDS: ZESTRIL PO SCH (09:25)
[2018-06-11] MEDS: HEPARIN SUB-Q SCH (09:25)
[2018-06-11] MEDS: BIKTARVY PO SCH (09:26)
--- NOTE | 2018-06-11 11:46 | Discharge Summary ---
Providers - Providers Date of Admission: 06/09/18 08:17 Date of discharge: 06/11/18 Attending physician: MAKENNA MCLEAN 06/09/18 09:34 Consult to Physician [CONS] Routine Comment: [facility] PT IN ER 1000 Consulting Provider: LALIT BROWN Physician Instructions: Reason For Exam: rectal bleed and pancreatitis 06/09/18 09:35 Consult to Physician [CONS] Routine Comment: Consulting Provider: ASHLEIGH ENRIQUEZ Physician Instructions: I notified Reason For Exam: HIV care, is HIV med causing pancreatitis [facility] Condition: Stable Hospital course: Patient is a 28 yo man with a history of Alcohol pancreatitis leading to chronic pancreatitis, depression, hypertension and HIV who initially presented to [facility] ED on 06/07/18 with abdominal pains. He was discharged home on 06/07/18 from ED but returns today with severe worsening sharp constant epigastric to radiating to LLQ abdominal pains x 3-4 days. He denies any alcohol use. He states HIV meds were changed recently. * 06/07/18 CT ABDOMEN PELVIS WITH CONTRAST: HISTORY: abdominal pain. COMPARISON: 04/28/18. TECHNIQUE: Helical CT in 1.25mm intervals following IV contrast. Sagittal and coronal reconstructions. FINDINGS: Lung bases: Normal. Liver: Normal. Biliary system: Normal. Pancreas: There are scattered par enchymal calcifications in the proximal pancreas consistent with chronic pancreatitis. No acute inflammatory changes are appreciated. No obvious mass or pseudocyst. Spleen: Normal. Kidneys/ureters bladder: Normal. Adrenal glands: Normal. Aorta: Normal. Intestines: Within normal limits given no oral contrast was administered. Appendix: Normal. Pelvic viscera: Normal. Ascites: None. Adenopathy: None. Musculoskeletal: Normal. IMPRESSION: Chronic pancreatitis. No acute inflammatory process is identified. -Acute on chronic pancreatitis: tolerating diet-->pt asking for oral dilaudid for home that he received from here jan 2018 -Rectal bleeding with normal H/H: consulted GI -HIV: restart HIV when diet starts -HTN: prn iv anti-hypertensives -Suspected pancreatic insufficiency [place] investigation manager aware reviewed. Last narcotic filled 04/24/[address] Huang Kimball Disposition: DC-01 TO HOME OR SELFCARE Time spent for discharge: 35 minutes Core Measure Documentation - Palliative Care Palliative Care/ Comfort Measures: Not Applicable - Core Measures Any of the following diagnoses?: none - VTE Discharge Requirements Deep Vein Thrombosis/Pulmonary Embolism Present on Admission: No Has pt received <5 days of overlap therapy or INR<2.0: No Anticoagulant overlap therapy prescribed at discharge: No Contraindication No Overlap Therapy order at DC: Not Indicated Exam - Physical Exam Narrative exam: Gen: WDWN, NAD, Awake, Alert, Orientated HEENT: NCAT, EOMI, PERRL, OP Clear Neck: supple, no adenopathy, no thyromegaly, no JVD CVS/Heart: RRR, normal S1S2, pulses present bilaterally Chest/Lungs: CTA B, Symmetrical chest expansion, good air entry bilaterally GI/Abdomen: soft, epigastric tenderness, no distension, good bowel sounds, no guarding or rebound /Bladder: no suprapubic tenderness, no CVA or paraspinal tenderness Extermity/Skin: no c/c/e, no obvious rash MSK: FROM x 4 Neuro: CN 2-12 grossly intact, no new focal deficits Psych: calm - Constitutional Vitals: Temp Pulse Resp BP Pulse Ox 99.1 F 104 H 20 132/96 99 06/11/18 06:29 06/11/18 06:29 06/11/18 06:29 06/11/18 09:25 06/11/18 06:29 Plan Activity: other (no strenous activity) Diet: advance as tolerated Follow up with: [facility] MD DANY [Primary Care Provider] - 3-5 Days LALIT BROWN MD [Staff Physician] - 7 Days ASHLEIGH ENRIQUEZ MD [Staff Physician] - 7 Days Prescriptions: ALPRAZolam 1 mg PO BID PRN #56 PRN Reason: Anxiety Lipase/Protease/Amylase [Nathanon Dr 12,000 Units] 6 each PO AC 30 Days capsule Hydromorphone HCl [Dilaudid] 4 mg PO Q12H PRN #20 tablet PRN Reason: Pain , Severe (7-10) Lunesta 1 mg PO HS #15
== END 2018-06-11 13:55 | disposition home or self-care (01) | DRG 377 ==
LOC: ED 06:51 → 3A 08:17
PROVIDERS: ADMIT Internal Medicine; ATTEND Internal Medicine
DX: K92.2 Gastrointestinal hemorrhage, unspecified (principal); K85.90 Acute pancreatitis without necrosis or infection, unspecified; K86.0 Alcohol-induced chronic pancreatitis; F32.9 Major depressive disorder, single episode, unspecified; I10 Essential (primary) hypertension; K86.89 Other specified diseases of pancreas; F17.200 Nicotine dependence, unspecified, uncomplicated; F10.10 Alcohol abuse, uncomplicated; G89.29 Other chronic pain; Z79.899 Other long term (current) drug therapy; Z82.49 Family history of ischemic heart disease and other diseases of the circulatory system
CPT/HCPCS: 36415; 76700; 80048; 80053; 80061; 80076; 81001; 83690; 85025; 85027; 86140; 87086; 87116; 96372; 96374; 96375; 96376; 99406; G0378; J0500; J1170; J1200; J1644; J2060; J2405; J7030

== ENCOUNTER 2018-06-13 11:59 | Inpatient (IN) | payer SELFPAY ==
--- NOTE | 2018-06-13 12:31 | Emergency Department Report ---
Chief Complaint: Abdominal Pain Stated Complaint: Abd pain Time Seen by Provider: 06/13/18 12:25 - HPI History of Present Illness: This is a 28 y.o. male that presents with uncontrolled abdominal cramping. Patient was admitted in this ER 06/07/18 for chronic pancreatitis and pain to right forearm. OTHER [employer] HIV, pancreantitis, and depression. - ROS Review of Systems: diffuse abdominal cramping - Exam Vital Signs: Vital Signs 06/13/18 12:25 Temperature 97.8 F Pulse Rate 144 H Respiratory 24 Rate Blood Pressure 140/81 [Left] O2 Sat by Pulse 100 Oximetry MSE screening note: Focused history and physical exam performed. Due to findings the following was ordered: ED Disposition for MSE Condition: Stable
--- NOTE | 2018-06-13 13:51 | XRay Report ---
RIGHT FOREARM: History: Swelling and pain. AP and lateral views of the forearm demonstrate normal mineralization and contours for this patient's age. No destructive changes are noted and the adjacent soft tissues are normal. IMPRESSION: Normal right forearm.
[2018-06-13 14:19] LABS: Basophils % (Auto) 0.1 % (0.0-1.8); Eosinophils # (Auto) 0.2 K/mm3 (0.0-0.4); Eosinophils % (Auto) 2.7 % (0.0-4.3); Hematocrit 39.3 % (35.5-45.6); Hemoglobin 13.3 gm/dl (11.8-15.2); Lymphocytes # (Auto) 1.1 K/mm3 (1.2-5.4); Lymphocytes % (Auto) 14.7 % (13.4-35.0); Mean Corpuscular HGB Conc 34 % (32-34); Mean Corpuscular Volume 87 fl (84-94); Monocytes # (Auto) 0.5 K/mm3 (0.0-0.8); Monocytes % (Auto) 6.5 % (0.0-7.3); Platelet Count 175 K/mm3 (140-440); Red Blood Count 4.49 M/mm3 (3.65-5.03); Red Cell Distribution Width 13.5 % (13.2-15.2)
[2018-06-13 14:38] LABS: Alanine Aminotransferase 27 units/L (7-56); Albumin 4.2 g/dL (3.9-5); BUN/Creatinine Ratio 18; Blood Urea Nitrogen 16 mg/dL (9-20); Calcium 9.7 mg/dL (8.4-10.2); Hemolysis Index 6
[2018-06-13] MEDS ORDERED: DILAUDID IV ONE ×2 (16:32→18:37)
[2018-06-13] MEDS ORDERED: NACL 0.9% 1000 ML 1,000 ML IV ONE ×2 (16:32→20:40)
[2018-06-13] MEDS ORDERED: ZOFRAN IV ONE (16:32)
--- NOTE | 2018-06-13 16:57 | Emergency Department Report ---
ED Abdominal Pain HPI - General Chief Complaint: Abdominal Pain Stated Complaint: Abd pain Time Seen by Provider: 06/13/18 12:25 Source: patient Mode of arrival: Ambulatory Limitations: No Limitations - History of Present Illness Initial Comments: 28-year-old male with history of HIV (most recent CD4 count is 590, undetectable viral load), chronic pancreatitis presents to ED with abdominal pain, nausea, vomiting, subjective fever. Patient was discharged from this facility on yesterday following admission for pancreatitis. The patient was discharged home with prescription for Dilaudid, Xanax, Creon, Lunesta for insomnia. Seen by GI during admission. Patient states his symptoms have continued at home. Patient also reports redness and swelling to right forearm, where IV was placed while he was in an inpatient. States this has been present for 2 days, no prescriptions for antibiotics given. Patient reports includes feeling depressed, states he is tired of coming back and forth to the hospital. Also reports his brother was killed in a car accident 3 days ago, and he is feeling overwhelmed by that as well. Denies LOREE SNOW. PCP: Infectious disease clinic Complaint: abdominal pain -: days(s) (5) Location: LUQ, epigastric Radiation: back Migration to: no migration Severity: severe Severity scale (0 -10): 10 Quality: cramping, sharp Consistency: constant Improves With: nothing Worsens With: nothing Associated Symptoms: nausea, vomiting, fever Treatments Prior to Arrival: prescription analgesics (dilaudid) - Related Data Home Medications Medication Instructions Recorded Confirmed Last Taken Biktarvy 50-200-25 mg (Nf) 1 tab PO DAILY 06/09/18 06/09/18 Unknown Previous Rx's Medication Instructions Recorded Last Taken Type Lisinopril [Zestril] 20 mg PO DAILY #30 tablet 03/16/18 Unknown Rx ALPRAZolam 1 mg PO BID PRN #56 06/11/18 Unknown Rx Hydromorphone HCl [Dilaudid] 4 mg PO Q12H PRN #20 tablet 06/11/18 Unknown Rx Lipase/Protease/Amylase [Creon Dr 6 each PO AC 30 Days capsule 06/11/18 Unknown Rx 12,000 Units] Lunesta 1 mg PO HS #15 06/11/18 Unknown Rx Allergies Allergy/AdvReac Type Severity Reaction Status Date / Time No Known Allergies Allergy Verified 04/05/18 14:10 ED Review of Systems ROS: Stated complaint: Abd pain Other details as noted in HPI Comment: All other systems reviewed and negative Constitutional: fever Gastrointestinal: abdominal pain, nausea, vomiting Musculoskeletal: other (reports redness to right forearm) ED Past Medical Hx - Past Medical History Previous Medical History?: Yes Hx Hypertension: Yes Hx HIV: Yes Additional medical history: pancreatitis-- hiv. Chrons - Surgical History Past Surgical History?: Yes Hx Coronary Stent: No Hx Open Heart Surgery: No Hx Pacemaker: No Hx Internal Defibrillator: No Hx Cholecystectomy: No Hx Appendectomy: No Hx Breast Surgery: No - Social History Smoking Status: Never Smoker - Medications Home Medications: Home Medications Medication Instructions Recorded Confirmed Last Taken Type Lisinopril [Zestril] 20 mg PO DAILY #30 tablet 03/16/18 06/09/18 Unknown Rx Biktarvy 50-200-25 mg (Nf) 1 tab PO DAILY 06/09/18 06/09/18 Unknown History ALPRAZolam 1 mg PO BID PRN #56 06/11/18 Unknown Rx Hydromorphone HCl [Dilaudid] 4 mg PO Q12H PRN #20 tablet 06/11/18 Unknown Rx Lipase/Protease/Amylase [Creon Dr 6 each PO AC 30 Days capsule 06/11/18 Unknown Rx 12,000 Units] Lunesta 1 mg PO HS #15 06/11/18 Unknown Rx ED Physical Exam - General Limitations: No Limitations General appearance: alert, in no apparent distress - Head Head exam: Present: atraumatic, normocephalic - Eye Eye exam: Present: normal appearance - ENT ENT exam: Present: mucous membranes moist - Neck Neck exam: Present: normal inspection - Respiratory Respiratory exam: Present: normal lung sounds bilaterally. Absent: respiratory distress - Cardiovascular Cardiovascular Exam: Present: normal rhythm, tachycardia - GI/Abdominal GI/Abdominal exam: Present: soft, tenderness (epigastric, LUQ, LLQ tenderness). Absent: distended - Extremities Exam Extremities exam: Present: other (erythema, tenderness, mild swelling to right forearm) - Neurological Exam Neurological exam: Present: alert, oriented X3 - Psychiatric Psychiatric exam: Present: depressed. Absent: suicidal ideation - Skin Skin exam: Present: warm, dry, intact, erythema (to right forearm) ED Course Vital Signs 06/13/18 06/13/18 06/13/18 12:25 16:02 19:00 Temperature 97.8 F 98.2 F Pulse Rate 144 H 115 H 113 H Respiratory 24 20 14 Rate Blood Pressure 134/91 Blood Pressure 140/81 132/91 [Left] O2 Sat by Pulse 100 100 71 L Oximetry 06/13/18 06/13/18 06/13/18 19:30 19:39 19:45 Temperature Pulse Rate 109 H 113 H 119 H Respiratory 19 19 21 Rate Blood Pressure 132/93 162/110 Blood Pressure 132/93 [Left] O2 Sat by Pulse 98 98 82 L Oximetry 06/13/18 06/13/18 06/13/18 20:00 20:30 20:45 Temperature 102.8 F H Pulse Rate 141 H 147 H Respiratory 22 21 Rate Blood Pressure 164/105 155/99 Blood Pressure [Left] O2 Sat by Pulse 85 94 Oximetry 06/13/18 06/13/18 06/13/18 21:00 21:16 21:30 Temperature Pulse Rate 141 H 139 H 135 H Respiratory 22 19 18 Rate Blood Pressure 139/86 139/86 98/48 Blood Pressure [Left] O2 Sat by Pulse 92 92 94 Oximetry 06/13/18 06/13/18 06/13/18 21:45 22:00 22:15 Temperature Pulse Rate 131 H 126 H 123 H Respiratory 19 18 20 Rate Blood Pressure 97/42 89/41 94/53 Blood Pressure [Left] O2 Sat by Pulse 93 96 98 Oximetry 06/13/18 06/13/18 06/13/18 22:30 22:46 22:47 Temperature 99.4 F Pulse Rate 121 H 138 H 140 H Respiratory 18 16 24 Rate Blood Pressure 91/61 103/72 Blood Pressure 103/72 [Left] O2 Sat by Pulse 97 94 93 Oximetry 06/13/18 06/13/18 06/14/18 23:00 23:16 00:00 Temperature Pulse Rate 119 H 120 H 111 H Respiratory 18 22 26 H Rate Blood Pressure 107/62 99/55 96/48 Blood Pressure [Left] O2 Sat by Pulse 96 96 93 Oximetry 06/14/18 00:15 Temperature Pulse Rate 111 H Respiratory 24 Rate Blood Pressure 103/46 Blood Pressure [Left] O2 Sat by Pulse 95 Oximetry - Reevaluation(s) Reevaluation #1: 06/13/18 19:06 Called to room by RN b/c pt was found by her on the floor, altered. Pt currently unresponsive to painful stimuli, sonorous respirations, tachycardic. ? seizure. I spoke w/ pt approx 30 minutes ago to inform that he would be discharged following his abx. Pt was awake and alert at that time, asked for an additional dose of pain meds before being disharged. No documented hx of seizures. Will obtain CT Head and observe. Reevaluation #2: 06/13/18 19:39 Boyfriend currently at bedside. Denies known hx of seizures. States pt does still drink daily, approx 3 alcoholic drinks per day. Pt was in hospital the last 3 days and reported to admitting physician that he no longer consumes alcohol, so it is unlikely that pt was on CIWA protocol at that time. Pt also told me he no longer drinks. Boyfriend states pt did not drink anything yesterday. Only had a glass of wine today. Pt currently remains postictal, however, now opens eyes to painful stimuli. ? alcohol withdrawal seizure... will give ativan. Pt was not given 2nd dose of dilaudid. Awaiting CT Head. Reevaluation #3: 06/13/18 21:19 Grandmother currently at bedside. States pt had similar occurrence a few years ago where he was thought to have had a seizure and was then in a coma for one month. Reevaluation #4: 06/13/18 22:48 Pt currently awake, answering questions. Reports that he has had seizures in the past. Denies being on seizure medication. Spoke w/ Dr Solomon regarding admission. Wants CTA to rule out PE. ED Medical Decision Making - Lab Data Result diagrams: 06/13/18 21:27 06/13/18 21:27 - Radiology Data Radiology results: report reviewed, image reviewed - Medical Decision Making 28-year-old male's history of alcoholism and chronic pancreatitis presented to the ED for abdominal pain. Patient was discharged yesterday following a three- day stay for chronic pancreatitis with prescriptions for Dilaudid, Lunesta, Xanax, Creon. Patient expressed some feelings of depression and frustration with his medical issues and increasing need for hospital visits. Mental health evaluation was obtained, patient was speaking in outpatient resources for follow-up. I initially spoke with patient regarding discharge home and no need for re-admission as he already had prescriptions for medications. Patient was ag reeable to that, only requested an additional dose of pain medication prior to discharge. When nurse went back in to check on patient actually stepping out briefly, patient sound on the floor, unresponsive, with sonorous respirations. Patient is also tachycardic, O2 sats dropped. Patient was placed on nonrebreather mask. Appears to be postictal. It was then discovered per patient's boyfriend and the patient actually does still consume alcohol daily, and despite the fact that he told me that he had quit. Patient also to admitting doctor that he was no longer a drinker. I feel that this patient likely had an alcohol withdrawal seizure, as he has not had a change in the last 4 days, except for one glass of wine today. Patient to wake up, became responsive, and told me that he has had seizures in the past. CT head negative. CT chest negative. Patient was given Ativan and Keppra. Patient will be admitted to the hospitalist, Dr Solomon, for further workup. - Differential Diagnosis chronic pain, depression, seizure, ETOH withdrawal, intracranial bleed Critical Care Time: Yes Critical care time in (mins) excluding proc time.: 30 Critical care attestation.: If time is entered above; I have spent that time in minutes in the direct care of this critically ill patient, excluding procedure time. Critical Care Time: 30 minutes ED Disposition Clinical Impression: Cellulitis of arm, right, Alcohol withdrawal seizure Chronic pancreatitis Qualifiers: Pancreatitis type: unspecified pancreatitis type Qualified Code(s): K86.1 - Other chronic pancreatitis Disposition: -09 OP ADMIT IP TO THIS HOSP Is pt being admited?: Yes Condition: Stable
[2018-06-13] MEDS ORDERED: CLEOCIN 900 MG/50 mL 900 MG/50 ML BAG IV ONE (17:20)
[2018-06-13] MEDS ORDERED: ATIVAN IV ONE (19:43)
[2018-06-13] MEDS ORDERED: ATIVAN ONE (19:46)
[2018-06-13] MEDS ORDERED: TYLENOL PR ONE ×2 (20:27→20:28)
[2018-06-13] MEDS ORDERED: KEPPRA 1,000 MG in NACL 0.9% 100 ML IV ONE (20:29)
--- NOTE | 2018-06-13 20:53 | Cat Scan Report ---
PROCEDURE: CT HEAD/BRAIN WO CON TECHNIQUE: CT head without contrast HISTORY: possible seizure COMPARISONS: FINDINGS: No acute injury or intra-axial hemorrhage identified. No evidence for midline shift or mass effect. V entricles and sulci are within normal limits. No acute parenchymal abnormalities are seen. Bony dioni rium appears intact. Visualized portions of the mastoids and paranasal sinuses are unremarkable. IMPRESSION: Negative CT head. This document is electronically signed by Rhett Loza MD., June 13 2018 08:51:27 PM ET
[2018-06-13] MEDS ORDERED: KEPPRA 1,000 MG/NS 0.75% 100ML 1,000 MG/100 ML BAG IV ONE (21:00)
[2018-06-13 21:37] LABS: Basophils % (Auto) 0.9 % (0.0-1.8); Eosinophils # (Auto) 0.1 K/mm3 (0.0-0.4); Eosinophils % (Auto) 2.1 % (0.0-4.3); Hematocrit 40.5 % (35.5-45.6); Hemoglobin 13.7 gm/dl (11.8-15.2); Lymphocytes # (Auto) 0.5 K/mm3 (1.2-5.4); Lymphocytes % (Auto) 16.7 % (13.4-35.0); Mean Corpuscular HGB Conc 34 % (32-34); Mean Corpuscular Volume 88 fl (84-94); Monocytes # (Auto) 0.1 K/mm3 (0.0-0.8); Monocytes % (Auto) 3.4 % (0.0-7.3); Platelet Count 192 K/mm3 (140-440); Red Blood Count 4.63 M/mm3 (3.65-5.03); Red Cell Distribution Width 13.7 % (13.2-15.2)
[2018-06-13] MEDS ORDERED: ZOSYN/NS 4.5GM/100ML 4.5 GM/100 ML VIAL IV ONE (21:40)
[2018-06-13 21:47] LABS: BUN/Creatinine Ratio 16; Blood Urea Nitrogen 14 mg/dL (9-20); Calcium 8.7 mg/dL (8.4-10.2); Hemolysis Index 5
[2018-06-13 22:03] LABS: Bacteria,Urine 1+ /HPF (Negative); Bilirubin,Urine NEG (Negative); Blood,Urine SM (Negative); Color,Urine Yellow (Yellow); Hyaline Casts,Urine 3 /LPF; Mucus,Urine FEW /HPF; Urobilinogen,Urine < 2.0 mg/dL (<2.0)
--- NOTE | 2018-06-13 23:49 | XRay Report ---
PROCEDURE: XR CHEST 1V AP TECHNIQUE: Portable AP Chest x-ray HISTORY: ams COMPARISONS: Prior chest x-ray 03/16/2018 FINDINGS: Lungs are hypoventilated. Diaphragms are significantly elevated. Patchy alveolar densities present in both lower lobes left side greater than right suggesting pneumonia and/or atelectasis. No acute bone abnormalities are identified. The heart is magnified due to projection and fourth Report. Normal heart size is suspected. Pulmonary vasculature is not distended. IMPRESSION: Lungs are significantly hypoventilated. Patchy alveolar density present in both lower lobes left side greater than right suggesting pneumonia versus atelectasis.. This document is electronically signed by Joseph Olvera MD., June 13 2018 11:46:41 PM ET
--- NOTE | 2018-06-14 00:01 | Cat Scan Report ---
PROCEDURE: CT ANGIOGRAM OF THE CHEST FOR PULMONARY EMBOLISM TECHNIQUE: Computerized axial tomographic angiography of the chest and pulmonary arteries was perfor med after the IV injection of iodinated nonionic contrast. The image data was postprocessed using max imum intensity projection (MIP) and 2-dimensional multiplanar reformatted (MPR) techniques. The exami nation is specifically tailored to the evaluation of the pulmonary arteries per clinical request. Au tomated exposure control, adjustment of mA and/or kV according to patient size, or iterative reconstr uction dose optimization techniques were utilized. CPT G9637, 87253 HISTORY: Shortness of breath R06.02, chest pain unspecified R07.9 , COMPARISONS: None . FINDINGS: Heart and pericardium: Normal. Thoracic aorta: There is no thoracic aortic aneurysm or dissection.. Pulmonary vasculature: Normal. No pulmonary emboli. Lymph nodes: No enlarged thoracic lymph nodes. Lungs: There is suboptimal inspiration. There is atelectasis at the lung bases. There are no acute i nfiltrates.. Pleural space: No effusion, thickening, or pneumothorax. Musculoskeletal structures: No significant abnormality. Upper abdominal structures: There are calcifications in the pancreas suggesting chronic pancreatitis .. IMPRESSION: There is no thoracic aortic aneurysm or dissection.. There is no pulmonary embolism. There is atelectasis at the lung bases. There are no acute infiltrates.. This document is electronically signed by Lennox Chong MD., June 13 2018 11:59:36 PM ET
--- NOTE | 2018-06-14 00:13 | History and Physical Report ---
History of Present Illness Date of examination: 06/14/18 History of present illness: 28-year-old man with a history of HIV, pancreatitis, depression, anxiety, hypertension was discharged from the hospital on June 11, comes back to the emergency room with complaints of abdominal pain. He was set to be discharged home,the nurse went back to check on him she found him with sonorous respiration on the floor with decreased saturation. He was given IV Ativan for possible seizure. Patient is sedated, unable to obtain a history or review of system. Grandmother and boyfriend at bedside PAST MEDICAL HISTORY: HIV, pancreatitis, depression, anxiety, hypertension PAST SURGICAL HISTORY: None SOCIAL HISTORY: + alcohol, no drugs, +smokes FAMILY HISTORY: Hypertension Medications and Allergies Allergies Allergy/AdvReac Type Severity Reaction Status Date / Time No Known Allergies Allergy Verified 04/05/18 14:10 Home Medications Medication Instructions Recorded Confirmed Last Taken Type Lisinopril [Zestril] 20 mg PO DAILY #30 tablet 03/16/18 06/14/18 Unknown Rx Biktarvy 50-200-25 mg (Nf) 1 tab PO DAILY 06/09/18 06/14/18 06/13/18 08:00 History ALPRAZolam 1 mg PO BID PRN #56 06/11/18 06/14/18 Unknown Rx Hydromorphone HCl [Dilaudid] 4 mg PO Q12H PRN #20 tablet 06/11/18 06/14/18 Unknown Rx Lipase/Protease/Amylase [Creon Dr 6 each PO AC 30 Days capsule 06/11/18 06/14/18 Unknown Rx 12,000 Units] Lunesta 1 mg PO HS #15 06/11/18 06/14/18 Unknown Rx Exam - Physical Exam Narrative exam: General Apperance: The patient lying in bed, breathing comfortable HEENT: Normocephalic, atraumatic. Pupils equally round and reactive to light, EOMI, no sclericterus or JVD or thyromegaly or nodule. , no carotid bruit, mucous membranes moist, no exudate or erythema Heart: S1-S2, regular is rhythm Lungs: Clear to auscultation bilaterally, breathing comfortable Abdomen: Positive bowel sounds, soft, nontender, nondistended, no organomegaly Extremities: No edema cyanosis clubbing Skin: right forearm tender, positive erythema, no rash, nodule, warm and dry Neuro sedated - Constitutional Vitals: Temp Pulse Resp BP Pulse Ox 99.4 F 140 H 24 103/72 93 06/13/18 22:47 06/13/18 22:47 06/13/18 22:47 06/13/18 22:47 06/13/18 22:47 Results - Labs CBC & Chem 7: 06/13/18 21:27 06/13/18 21:27 Labs: Abnormal lab results 06/13/18 06/13/18 06/13/18 Range/Units 13:49 13:49 19:32 WBC (4.5-11.0) K/mm3 Lymph # 1.1 L (1.2-5.4) K/mm3 Seg Neutrophils % 76.0 H (40.0-70.0) % POC Glucose 116 H (70-105) Lipase 77 H (13-60) units/L 06/13/18 Range/Units 21:27 WBC 3.2 L (4.5-11.0) K/mm3 Lymph # 0.5 L (1.2-5.4) K/mm3 Seg Neutrophils % 76.9 H (40.0-70.0) % POC Glucose (70-105) Lipase (13-60) units/L - Imaging and Cardiology EKG: image reviewed Chest x-ray: report reviewed CT scan - chest: report reviewed CT Scan - head: report reviewed Assessment and Plan Assessment Acute on chronic pancreatitis secondary to alcohol Possible seizure Cellulitis of upper extremity HIV depression anxiety hypertension Alcohol abuse Plan Admit to medicine Bowel rest , IV fluid, IV morphine, emperic zosyn, ?aspirate Check ultrasound of the abdomen, IV Ativan for possible seizure DVT prophylaxis
[2018-06-14] MEDS: ATIVAN IV PRN ×3 (02:10→19:49)
[2018-06-14] MEDS ORDERED: MORPHINE IV PRN (02:27)
[2018-06-14] MEDS ORDERED: SODIUM CHLORIDE FLUSH SYRINGE 10 ML IV PRN (02:27)
[2018-06-14] MEDS ORDERED: ATIVAN IV PRN (02:33)
[2018-06-14] MEDS: NACL 0.9% 1000 ML 1,000 ML IV SCH ×2 (03:19→11:20)
[2018-06-14] MEDS: MORPHINE IV PRN (03:19)
[2018-06-14] MEDS: ZOFRAN IV PRN (03:20)
[2018-06-14] MEDS: ZOSYN/NS 3.375GM/50ML 3.375 GM/50 ML BAG IV SCH ×3 (05:17→22:46)
[2018-06-14] MEDS ORDERED: DILAUDID IV ONE (06:00)
[2018-06-14] MEDS ORDERED: NON-FORMULARY (Alprazolam 1 MG) PO PRN (06:19)
[2018-06-14] MEDS ORDERED: XANAX PO PRN (06:23)
[2018-06-14] MEDS: CREON DR 12,000 UNITS PO SCH ×3 (07:30→17:23)
[2018-06-14] MEDS ORDERED: ZOSYN/NS 3.375GM/50ML 3.375 GM/50 ML BAG IV SCH (08:00)
[2018-06-14 08:11] LABS: Basophils % (Auto) 0.3 % (0.0-1.8); Eosinophils # (Auto) 0.1 K/mm3 (0.0-0.4); Eosinophils % (Auto) 1.7 % (0.0-4.3); Hematocrit 34.9 % (35.5-45.6); Hemoglobin 11.9 gm/dl (11.8-15.2); Lymphocytes # (Auto) 0.3 K/mm3 (1.2-5.4); Lymphocytes % (Auto) 8.1 % (13.4-35.0); Mean Corpuscular HGB Conc 34 % (32-34); Mean Corpuscular Volume 87 fl (84-94); Monocytes # (Auto) 0.1 K/mm3 (0.0-0.8); Monocytes % (Auto) 1.7 % (0.0-7.3); Platelet Count 169 K/mm3 (140-440); Red Blood Count 4.03 M/mm3 (3.65-5.03); Red Cell Distribution Width 13.5 % (13.2-15.2)
[2018-06-14] MEDS ORDERED: BENADRYL PO PRN (08:25)
[2018-06-14 08:29] LABS: BUN/Creatinine Ratio 9; Blood Urea Nitrogen 15 mg/dL (9-20); Calcium 8.3 mg/dL (8.4-10.2); Hemolysis Index 6
[2018-06-14] MEDS ORDERED: LOPRESSOR IV NR (09:30)
[2018-06-14] MEDS ORDERED: BIKTARVY PO SCH (10:00)
[2018-06-14] MEDS ORDERED: LOVENOX SUB-Q SCH (10:00)
[2018-06-14] MEDS: ZESTRIL PO SCH (11:02)
[2018-06-14] MEDS: LOVENOX SUB-Q SCH (11:03)
[2018-06-14] MEDS: SODIUM CHLORIDE FLUSH SYRINGE 10 ML IV SCH ×2 (11:28→22:47)
[2018-06-14] MEDS ORDERED: DILAUDID SUB-Q ONE (12:48)
[2018-06-14] MEDS: TYLENOL PO PRN (13:02)
[2018-06-14] MEDS: DILAUDID PO PRN (20:43)
[2018-06-15] MEDS: TYLENOL PO PRN ×2 (03:37→16:47)
[2018-06-15] MEDS: ZOSYN/NS 3.375GM/50ML 3.375 GM/50 ML BAG IV SCH ×2 (05:00→18:37)
[2018-06-15] MEDS: MORPHINE IV PRN ×2 (05:01→16:07)
[2018-06-15] MEDS: ZOFRAN IV PRN ×2 (05:05→11:44)
[2018-06-15 05:57] LABS: Basophils % (Auto) 0.2 % (0.0-1.8); Eosinophils # (Auto) 0.1 K/mm3 (0.0-0.4); Eosinophils % (Auto) 0.6 % (0.0-4.3); Hematocrit 33.3 % (35.5-45.6); Lymphocytes # (Auto) 1.1 K/mm3 (1.2-5.4); Lymphocytes % (Auto) 10.6 % (13.4-35.0); Mean Corpuscular HGB Conc 33 % (32-34); Mean Corpuscular Volume 89 fl (84-94); Monocytes # (Auto) 0.8 K/mm3 (0.0-0.8); Monocytes % (Auto) 7.6 % (0.0-7.3); Platelet Count 162 K/mm3 (140-440); Red Blood Count 3.75 M/mm3 (3.65-5.03); Red Cell Distribution Width 13.8 % (13.2-15.2)
[2018-06-15 06:16] LABS: BUN/Creatinine Ratio 8; Blood Urea Nitrogen 10 mg/dL (9-20); Calcium 9.2 mg/dL (8.4-10.2); Hemolysis Index 5
[2018-06-15] MEDS ORDERED: NON-FORMULARY PO SCH (10:00)
--- NOTE | 2018-06-15 10:08 | Progress Note ---
Assessment and Plan Assessment and plan: 28-year-old man with known history of chronic alcoholic pancreatitis, HIV and major depression. The patient has had multiple admissions in the hospital for bouts of pancreatitis. Per his grandmother and roommate he still actively drinking alcohol every day. The patient presented to the hospital with abdominal pain. Diagnoses Acute on chronic hepatitis due to alcohol abuse HIV infection Major depression Acute kidney injury due to vasomotor nephropathy Alcohol dependence and withdrawal, delirium tremens Fever and SIRS Acute metabolic encephalopathy Plan The patient was admitted to the hospital with CPAP protocol he was given some bowel rest and IV fluids, after which his diet has been advanced to a clear liquid diet, but the patient continues to have nausea and vomiting, - difficulty is being put nothing by mouth -The patient was very combative yesterday and absconded from the medical floor yesterday, he was confused and delirious at that time. He was given Ativan and Dilaudid after which she improved. -The patient was also noted by the nurses swallow some pills in the room which included Lunesta and I allotted and Xanax. His spit up majority of them, it is not known how much of it he swallowed. He was then transferred to [facility] for closer monitoring. -His renal function returned to normal after one day of IV fluids. Patient is plan for CT abdomen and pelvis, but could not tolerate test due to nausea and vomiting, will obtain abdominal ultrasound for now Given high fevers will consult ID, urine and blood cultures negative, chest imaging is also negative for pneumonia DVT prophylaxis with Lovenox History Interval history: Review of systems Constitutional: The patient has been febrile CVS: No chest pain, no orthopnea, no dyspnea on exertion, no pedal edema GI: Complaining of abdominal pain nausea and vomiting Respiratory: No shortness of breath, no wheezing, no coughing Hospitalist Physical - Physical exam Narrative exam: General.: Moderate distress HEENT: Moist mucous membranes, extraocular muscles intact, no lymphadenopathy Neck: supple Cardiac: S1-S2 heard Lungs: clear to auscultation bilaterally Abdomen: soft , tender Extremities: no edema clubbing or cyanosis Skin: no rash or lesions Neurologic: no gross focal deficits Psych: calm, and cooperative - Constitutional Vitals: Temp Pulse Resp BP Pulse Ox 99.6 F 101 H 18 103/52 100 06/15/18 08:00 06/15/18 08:00 06/15/18 08:00 06/15/18 08:00 06/15/18 08:00 Results - Labs CBC & Chem 7: 06/15/18 04:44 06/15/18 04:44 Labs: Laboratory Last Values WBC 10.5 K/mm3 (4.5-11.0) 06/15/18 04:44 RBC 3.75 M/mm3 (3.65-5.03) 06/15/18 04:44 Hgb 11.0 gm/dl (11.8-15.2) L 06/15/18 04:44 Hct 33.3 % (35.5-45.6) L 06/15/18 04:44 MCV 89 fl (84-94) 06/15/18 04:44 MCH 29 pg (28-32) 06/15/18 04:44 MCHC 33 % (32-34) 06/15/18 04:44 RDW 13.8 % (13.2-15.2) 06/15/18 04:44 Plt Count 162 K/mm3 (140-440) 06/15/18 04:44 Lymph % (Auto) 10.6 % (13.4-35.0) L 06/15/18 04:44 Parmer % (Auto) 7.6 % (0.0-7.3) H 06/15/18 04:44 Eos % (Auto) 0.6 % (0.0-4.3) 06/15/18 04:44 Baso % (Auto) 0.2 % (0.0-1.8) 06/15/18 04:44 Lymph # 1.1 K/mm3 (1.2-5.4) L 06/15/18 04:44 Parmer # 0.8 K/mm3 (0.0-0.8) 06/15/18 04:44 Eos # 0.1 K/mm3 (0.0-0.4) 06/15/18 04:44 Baso # 0.0 K/mm3 (0.0-0.1) 06/15/18 04:44 Seg Neutrophils % 81.0 % (40.0-70.0) H 06/15/18 04:44 Seg Neutrophils # 8.5 K/mm3 (1.8-7.7) H 06/15/18 04:44 Sodium 140 mmol/L (137-145) 06/15/18 04:44 Potassium 4.1 mmol/L (3.6-5.0) 06/15/18 04:44 Chloride 103.2 mmol/L (98-107) 06/15/18 04:44 Carbon Dioxide 23 mmol/L (22-30) 06/15/18 04:44 Anion Gap 18 mmol/L 06/15/18 04:44 BUN 10 mg/dL (9-20) 06/15/18 04:44 Creatinine 1.2 mg/dL (0.8-1.5) 06/15/18 04:44 Estimated GFR > 60 ml/min 06/15/18 04:44 BUN/Creatinine Ratio 8 % 06/15/18 04:44 Glucose 108 mg/dL (75-100) H 06/15/18 04:44 POC Glucose 89 (70-105) 06/14/18 07:46 Lactic Acid 1.90 mmol/L (0.7-2.0) 06/13/18 21:27 Calcium 9.2 mg/dL (8.4-10.2) 06/15/18 04:44 Total Bilirubin 0.40 mg/dL (0.1-1.2) 06/13/18 13:49 AST 29 units/L (5-40) 06/13/18 13:49 ALT 27 units/L (7-56) 06/13/18 13:49 Alkaline Phosphatase 53 units/L (35-129) 06/13/18 13:49 Total Protein 8.1 g/dL (6.3-8.2) 06/13/18 13:49 Albumin 4.2 g/dL (3.9-5) 06/13/18 13:49 Albumin/Globulin Ratio 1.1 % 06/13/18 13:49 Lipase 77 units/L (13-60) H 06/13/18 13:49 Urine Color Yellow (Yellow) 06/13/18 21:33 Urine Turbidity Clear (Clear) 06/13/18 21:33 Urine pH 5.0 (5.0-7.0) 06/13/18 21:33 Ur Specific Bryan 1.010 (1.003-1.030) 06/13/18 21:33 Urine Protein 30 mg/dl mg/dL (Negative) 06/13/18 21:33 Urine Glucose (UA) Neg mg/dL (Negative) 06/13/18 21:33 Urine Ketones Neg mg/dL (Negative) 06/13/18 21:33 Urine Blood Sm (Negative) 06/13/18 21:33 Urine Nitrite Neg (Negative) 06/13/18 21:33 Urine Bilirubin Neg (Negative) 06/13/18 21:33 Urine Urobilinogen < 2.0 mg/dL (<2.0) 06/13/18 21:33 Ur Leukocyte Esterase Neg (Negative) 06/13/18 21:33 Urine WBC (Auto) 1.0 /HPF (0.0-6.0) 06/13/18 21:33 Urine RBC (Auto) 27.0 /HPF (0.0-6.0) 06/13/18 21:33 Urine Bacteria (Auto) 1+ /HPF (Negative) 06/13/18 21:33 Hyaline Casts 3 /LPF 06/13/18 21:33 Urine Mucus Few /HPF 06/13/18 21:33 Active Medications - Current Medications Current Medications: Generic Name Dose Route Start Last Admin Trade Name Freq PRN Reason Stop Dose Admin Acetaminophen 650 mg 06/14/18 02:27 06/15/18 03:37 Tylenol PO 650 mg Q4H PRN Administration Pain MILD(1-3)/Fever >100.5/ROJAS Alprazolam 1 mg 06/14/18 06:23 Xanax PO BID PRN Anxiety Lipase/Protease/Amylase 6 each 06/14/18 07:30 06/14/18 17:[address] 12,000 Units PO Not Given AC SHERMAN Diphenhydramine HCl 25 mg 06/14/18 08:25 Benadryl PO Q6H PRN Itching Enoxaparin Sodium 40 mg 06/14/18 10:00 06/14/18 11:03 Lovenox SUB-Q 40 mg QDAY@1000 SHERMAN Administration Hydromorphone HCl 4 mg 06/14/18 14:51 06/14/18 20:43 Dilaudid PO 4 mg Q6H PRN Administration Pain , Severe (7-10) Sodium Chloride 1,000 mls @ 125 mls/hr 06/14/18 03:00 06/14/18 11:20 Nacl 0.9% 1000 Ml IV 125 mls/hr DIRECT SHERMAN Administration Piperacillin Sod/Tazobactam Sod 3.375 gm in 50 mls @ 100 mls/hr 06/14/18 06:00 06/15/18 05:00 Zosyn/Ns 3.375gm/50ml IV 100 mls/hr Q8HR SHERMAN Administration Lisinopril 20 mg 06/14/18 10:00 06/14/18 11:02 Zestril PO Not Given DAILY SHERMAN Lorazepam 1 mg 06/14/18 00:12 06/14/18 19:49 Ativan IV 1 mg Q1HR PRN Administration CIWA-Ar 8-15 Lorazepam 2 mg 06/14/18 00:12 06/14/18 08:15 Ativan IV 2 mg Q1HR PRN Administration CIWA-Ar 16-25 Lorazepam 1 mg 06/14/18 02:33 Ativan IV Q4HR PRN Seizures Miscellaneous Medication 1 each 06/15/18 10:00 Non-Formulary PO QDAY SHERMAN Morphine Sulfate 2 mg 06/14/18 02:34 06/15/18 05:01 Morphine IV 2 mg Q4H PRN Administration Pain, Moderate (4-6) Ondansetron HCl 4 mg 06/14/18 02:27 06/15/18 05:05 Zofran IV 4 mg Q8H PRN Administration Nausea And Vomiting Sodium Chloride 10 ml 06/14/18 10:00 06/14/18 22:47 Sodium Chloride Flush Syringe 10 Ml IV 10 ml BID SHERMAN Administration Sodium Chloride 10 ml 06/14/18 02:27 Sodium Chloride Flush Syringe 10 Ml IV PRN PRN LINE FLUSH
[2018-06-15] MEDS: CREON DR 12,000 UNITS PO SCH ×3 (10:15→18:38)
[2018-06-15] MEDS: LOVENOX SUB-Q SCH (10:16)
[2018-06-15] MEDS: ZESTRIL PO SCH (10:17)
[2018-06-15] MEDS: DILAUDID PO PRN (10:21)
[2018-06-15] MEDS: SODIUM CHLORIDE FLUSH SYRINGE 10 ML IV SCH (10:21)
--- NOTE | 2018-06-15 10:26 | Ultrasound Report ---
ULTRASOUND ABDOMEN COMPLETE: TECHNIQUE: Transabdominal ultrasound with color Doppler interrogation. HISTORY: Worsening pancreatitis. COMPARISON: Ultrasound abdomen dated 06/09/18. CT abdomen pelvis dated 06/07/18. FINDINGS: LIVER: Normal. BILIARY SYSTEM: Trace sludge is identified in the gallbladder. No evidence for shadowing gallstones or abnormal dilatation. The CBD measures 2 mm. PANCREAS: The pancreatic parenchyma again demonstrates scattered calcifications consistent with chronic pancreatitis. No obvious pancreatic mass or pseudocyst is detected. SPLEEN: Normal. KIDNEYS: Normal. AORTA/IVC: Normal. ASCITES: None. IMPRESSION: Findings consistent with chronic pancreatitis are identified. No obvious findings of acute pancreatitis on ultrasound. Trace sludge in the gallbladder. No significant change since 06/09/18 ultrasound.
[2018-06-15] MEDS: ATIVAN IV PRN ×2 (11:44→16:07)
--- NOTE | 2018-06-15 14:18 | Cat Scan Report ---
CT ABDOMEN PELVIS WITH CONTRAST: HISTORY: Fever, abdominal pain. COMPARISON: 06/07/18. TECHNIQUE: Helical CT in 1.25mm intervals following IV contrast. Sagittal and coronal reconstructions. FINDINGS: Lung bases: Normal. Liver: Normal. Biliary system: Normal. Pancreas: Scattered pancreatic calcifications and mild pancreatic ductal dilatation are unchanged and consistent with chronic pancreatitis. No acute inflammation is appreciated on CT. No obvious mass or pseudocyst. Spleen: Normal. Kidneys/ureters/bladder: Normal. Adrenal glands: Normal. Aorta: Normal. Intestines: Oral contrast is present on today's exam. No evidence for bowel obstruction, mass or focal inflammation. Appendix: Normal. Ascites: None. Adenopathy: None. Musculoskeletal: Intact. IMPRESSION: No acute inflammatory process is identified in the abdomen or pelvis. Chronic pancreatitis is identified which is unchanged since 06/07/18.
[2018-06-15] MEDS ORDERED: VANCOMYCIN 1,250 MG in NACL 0.9% 500 ML 500 ML IV ONE (14:32)
--- NOTE | 2018-06-15 14:32 | Consultation ---
History of Present Illness - Reason for Consult Consult date: 06/15/18 Fever, pancreatitis, HIV Requesting physician: MARY RICE - History of Present Illness The patient is a 28-year-old male with HIV, hypertension, chronic pancreatitis, depression who presented to the emergency room after recently being discharged on 06/11/2018 when he was admitted with chronic pancreatitis. He was apparently found on the floor this time with labored breathing, given IV Ativan for possible seizure and brought to the emergency room. He was also noted to be febrile with a temperature of 102.8F. He apparently complained of right forearm swelling and pain from previous IV site. Reports nausea, headaches and abdominal pain. Also complaining of headaches. He originally was diagnosed with HIV in 2014, following that, he indulged in drinking significant alcohol and in 2015, he was first diagnosed with acute pancreatitis, likely from alcohol. Since then, he has continued to have intermittent acute episodes requiring ER visits and hospitalizations. Regarding his HIV therapy, he used to be on Triumeq, most recent viral load he states is undetectable and CD4 count around 590. He follows up with an HIV clinic in [facility], apparently it is a [facility] clinic. Last month, he was switched to Biktarvy due to intolerance to Triumeq and likes his new regimen. Review of Systems: General: + for fevers, chills HEENT: no new visual disturbance Respiratory: No cough, sputum, hemoptysis or shortness of breath Cardiovascular: No chest pain, syncope Gastrointestinal: + for nausea, vomiting, abdominal pain Genitourinary: No dysuria or hematuria Musculoskeletal: No new or worsening neck pain or back pain Neurologic: + headaches, no seizures Hematologic: No easy bruising or bleeding Endocrine: No night sweats or acute weight loss Skin: negative for rash, jaundice Psychiatric: No suicidal or homicidal ideation Medications and Allergies Allergies Allergy/AdvReac Type Severity Reaction Status Date / Time No Known Allergies Allergy Verified 04/05/18 14:10 Home Medications Medication Instructions Recorded Confirmed Last Taken Type Lisinopril [Zestril] 20 mg PO DAILY #30 tablet 03/16/18 06/14/18 Unknown Rx Biktarvy 50-200-25 mg (Nf) 1 tab PO DAILY 06/09/18 06/14/18 06/13/18 08:00 History ALPRAZolam 1 mg PO BID PRN #56 06/11/18 06/14/18 Unknown Rx Hydromorphone HCl [Dilaudid] 4 mg PO Q12H PRN #20 tablet 06/11/18 06/14/18 Unknown Rx Lipase/Protease/Amylase [Taylor Mueller 6 each PO AC 30 Days capsule 06/11/18 06/14/18 Unknown Rx 12,000 Units] Lunesta 1 mg PO HS #15 06/11/18 06/14/18 Unknown Rx Active Meds: Active Medications Acetaminophen (Tylenol) 650 mg PO Q4H PRN PRN Reason: Pain MILD(1-3)/Fever >100.5/ROJAS Last Admin: 06/15/18 03:37 Dose: 650 mg Documented by: Alprazolam (Xanax) 1 mg PO BID PRN PRN Reason: Anxiety Lipase/Protease/Amylase (Taylor Mueller 12,000 Units) 6 each PO AC [facility] Last Admin: 06/15/18 11:30 Dose: Not Given Documented by: Diphenhydramine HCl (Benadryl) 25 mg PO Q6H PRN PRN Reason: Itching Last Admin: 06/15/18 11:06 Dose: 25 mg Documented by: Enoxaparin Sodium (Lovenox) 40 mg SUB-Q QDAY@1000 SHERMAN Last Admin: 06/15/18 10:16 Dose: 40 mg Documented by: Hydromorphone HCl (Dilaudid) 4 mg PO Q6H PRN PRN Reason: Pain , Severe (7-10) Last Admin: 06/15/18 10:21 Dose: 4 mg Documented by: Sodium Chloride (Nacl 0.9% 1000 Ml) 1,000 mls @ 125 mls/hr IV DIRECT [facility] Last Admin: 06/14/18 11:20 Dose: 125 mls/hr Documented by: Lisinopril (Zestril) 20 mg PO DAILY [facility] Last Admin: 06/15/18 10:17 Dose: 20 mg Documented by: Lorazepam (Ativan) 1 mg IV Q1HR PRN PRN Reason: JASSI-Karri 8-15 Last Admin: 06/14/18 19:49 Dose: 1 mg Documented by: Lorazepam (Ativan) 2 mg IV Q1HR PRN PRN Reason: JASSI-Ar 16-25 Last Admin: 06/15/18 11:44 Dose: 2 mg Documented by: Lorazepam (Ativan) 1 mg IV Q4HR PRN PRN Reason: Seizures Miscellaneous Medication (Non-Formulary) 1 each PO QDAY [facility] Last Admin: 06/15/18 10:16 Dose: 1 each Documented by: Morphine Sulfate (Morphine) 2 mg IV Q4H PRN PRN Reason: Pain, Moderate (4-6) Last Admin: 06/15/18 05:01 Dose: 2 mg Documented by: Ondansetron HCl (Zofran) 4 mg IV Q8H PRN PRN Reason: Nausea And Vomiting Last Admin: 06/15/18 11:44 Dose: 4 mg Documented by: Sodium Chloride (Sodium Chloride Flush Syringe 10 Ml) 10 ml IV BID [facility] Last Admin: 06/15/18 10:21 Dose: 10 ml Documented by: Sodium Chloride (Sodium Chloride Flush Syringe 10 Ml) 10 ml IV PRN PRN PRN Reason: LINE FLUSH Physical Examination - Physical Exam Narrative exam: Physical Exam: Constitutional: Alert, cooperative. No acute distress Head, Ears, Nose: Normocephalic, atraumatic. External ears, nose normal Eyes: Conjunctivae/corneas clear. No icterus. No ptosis. Neck: Supple, no meningeal signs Oral: dentition fair, no thrush Cardiovascular: S1, S2 normal. Respiratory: Good air entry, clear to auscultation bilaterally GI: Soft, non-tender; bowel sounds normal. No peritoneal signs Musculoskeletal: No pedal edema, no cyanosis. Right forearm with area of induration, redness, tenderness Skin: No rash or abscess Hem/Lymphatic: No palpable cervical or supraclavicular nodes. No lymphangitis Psych: Mood ok. Affect normal Neurological: Awake, alert, oriented. No gross abnormality - Constitutional Vitals: Vital Signs Temp Pulse Resp BP Pulse Ox 99.3 F 111 H 18 115/77 98 06/15/18 12:00 06/15/18 12:00 06/15/18 12:00 06/15/18 12:00 06/15/18 12:00 Temperature -Last 24 Hours Temperature 99.3 F Temperature 99.6 F Temperature 99.6 F Temperature 102.3 F Temperature 102.0 F Temperature 98.4 F Results - Labs CBC & Chem 7: 06/15/18 04:44 06/15/18 04:44 Labs: Abnormal lab results 06/15/18 06/15/18 Range/Units 04:44 04:44 Hgb 11.0 L (11.8-15.2) gm/dl Hct 33.3 L (35.5-45.6) % Lymph % (Auto) 10.6 L (13.4-35.0) % [place] % (Auto) 7.6 H (0.0-7.3) % Lymph # 1.1 L (1.2-5.4) K/mm3 Seg Neutrophils % 81.0 H (40.0-70.0) % Seg Neutrophils # 8.5 H (1.8-7.7) K/mm3 Glucose 108 H (75-100) mg/dL - Imaging and Cardiology Chest x-ray: report reviewed, image reviewed CT scan - abdomen: report reviewed, image reviewed (CT abdomen showed chronic pancreatitis, no acute intra-abdominal pathology.) CT scan - chest: report reviewed, image reviewed (CT chest showed atelectasis of the lung bases. No evidence of pneumonia.) CT Scan - head: report reviewed, image reviewed (CT head: Unremarkable for acute intracranial pathology) Assessment and Plan Cultures: 06/13/2018 Blood Culture: One out of 4 bottles growing Gram-positive cocci in chains 06/13/2018 urine culture: No growth at 48 hours 06/14/2018 MRSA culture: In progress A/P: 28-year-old male with HIV, hypertension, chronic pancreatitis, depression. Admitted with: 1) Acute fevers: With Gram-positive cocci bacteremia, likely related to right forearm cellulitis versus septic thrombophlebitis from recent peripheral IV site. Discontinue Zosyn and start IV vancomycin. Follow-up repeat blood cultures. Check venous duplex to rule out DVT/SVT. Also ordered urinary toxicology screen. 2) Acute on chronic pancreatitis: originally diagnosed as alcohol related, now chronic pancreatitis. Unlikely to be related to his HIV medications as discussed during previous hospitalization. Continue Biktarvy. 3) HIV: viral load here in January 2018 was 280, CD4 was 285 (31%). Per patient, his most recent viral load was undetectable and CD4 count around 590. He follows up with an HIV clinic in [facility], apparently it is a [facility] clinic. Continue Biktarvy. Recs: Discontinued Zosyn Started IV vancomycin, target trough between 10-20 g per mL Repeat blood cultures ordered Right forearm and arm venous duplex ordered Check TTE Continue Biktarvy (non formulary), patient has his own supply urinary toxicology screen MD [facility] C: [phone] O: [phone] F: [phone]
[2018-06-15] MEDS ORDERED: VANCOMYCIN PHARMACY TO DOSE IV SCH (15:00)
[2018-06-15] MEDS ORDERED: VANCOMYCIN 1,500 MG in NACL 0.9% 500 ML 500 ML IV SCH (16:00)
[2018-06-16 01:10] VITALS: BP 148/114
--- NOTE | 2018-06-16 09:25 | Progress Note ---
Assessment and Plan PATIENT LEFT AMA, NEVER SAW THIS PATIENT [facility] M: [id number] O:[phone] Subjective Date of service: 06/16/18 Objective - Constitutional Vitals: Vital Signs Temp Pulse Resp BP Pulse Ox 100.1 F H 114 H 18 148/114 97 06/15/18 16:00 06/15/18 18:00 06/15/18 16:00 06/15/18 18:00 06/15/18 19:36 Temperature -Last 24 Hours Temperature 100.1 F Temperature 99.3 F - Labs CBC & Chem 7: 06/15/18 04:44 06/15/18 04:44
--- NOTE | 2018-06-16 09:40 | Progress Note ---
Assessment and Plan Assessment and plan: 28-year-old man with known history of chronic alcoholic pancreatitis, HIV and major depression. The patient has had multiple admissions in the hospital for bouts of pancreatitis. Per his grandmother and roommate he still actively drinking alcohol every day. The patient presented to the hospital with abdominal pain. Diagnoses Sepsis/ gram positive bacteremia Acute on chronic pancreatitis due to alcohol abuse HIV infection Major depression Acute kidney injury due to vasomotor nephropathy Alcohol dependence and withdrawal, delirium tremens Fever and SIRS Acute metabolic encephalopathy Plan -cont ciwa protocol he was given some bowel rest and IV fluids, improving, cont to advance diet. -The patient was also noted by the nurses swallow some pills in the room on 06/14 which included Lunesta and dilaudid and Xanax. His spit up majority of them, it is not known how much of it he swallowed. He was then transferred to IM for closer monitoring., improved and now in med/surg floor -His renal function returned to normal after one day of IV fluids. ct abd pelvis and abdo US were neg for acute findings chest imaging is also negative for pneumonia, cont abx, repeat bc, fup echo, ID input appreciated, cont abx per ID DVT prophylaxis with Lovenox History Interval history: Review of systems Constitutional: The patient has been febrile CVS: No chest pain, no orthopnea, no dyspnea on exertion, no pedal edema GI: Complaining of abdominal pain nausea and vomiting Respiratory: No shortness of breath, no wheezing, no coughing Hospitalist Physical - Physical exam Narrative exam: General.: Moderate distress HEENT: Moist mucous membranes, extraocular muscles intact, no lymphadenopathy Neck: supple Cardiac: S1-S2 heard Lungs: clear to auscultation bilaterally Abdomen: soft , tender Extremities: no edema clubbing or cyanosis Skin: no rash or lesions Neurologic: no gross focal deficits Psych: calm, and cooperative - Constitutional Vitals: Temp Pulse Resp BP Pulse Ox 100.1 F H 114 H 18 148/114 97 06/15/18 16:00 06/15/18 18:00 06/15/18 16:00 06/15/18 18:00 06/15/18 19:36 Results - Labs CBC & Chem 7: 06/15/18 04:44 06/15/18 04:44 Labs: Laboratory Last Values WBC 10.5 K/mm3 (4.5-11.0) 03/21/19 04:44 RBC 3.75 M/mm3 (3.65-5.03) 06/15/18 04:44 Hgb 11.0 gm/dl (11.8-15.2) L 06/15/18 04:44 Hct 33.3 % (35.5-45.6) L 06/15/18 04:44 MCV 89 fl (84-94) 06/15/18 04:44 MCH 29 pg (28-32) 06/15/18 04:44 MCHC 33 % (32-34) 06/15/18 04:44 RDW 13.8 % (13.2-15.2) 06/15/18 04:44 Plt Count 162 K/mm3 (140-440) 06/15/18 04:44 Lymph % (Auto) 10.6 % (13.4-35.0) L 06/15/18 04:44 [place] % (Auto) 7.6 % (0.0-7.3) H 06/15/18 04:44 Eos % (Auto) 0.6 % (0.0-4.3) 06/15/18 04:44 Baso % (Auto) 0.2 % (0.0-1.8) 06/15/18 04:44 Lymph # 1.1 K/mm3 (1.2-5.4) L 06/15/18 04:44 [place] # 0.8 K/mm3 (0.0-0.8) 06/15/18 04:44 Eos # 0.1 K/mm3 (0.0-0.4) 06/15/18 04:44 Baso # 0.0 K/mm3 (0.0-0.1) 06/15/18 04:44 Seg Neutrophils % 81.0 % (40.0-70.0) H 06/15/18 04:44 Seg Neutrophils # 8.5 K/mm3 (1.8-7.7) H 06/15/18 04:44 Sodium 140 mmol/L (137-145) 06/15/18 04:44 Potassium 4.1 mmol/L (3.6-5.0) 06/15/18 04:44 Chloride 103.2 mmol/L (98-107) 06/15/18 04:44 Carbon Dioxide 23 mmol/L (22-30) 06/15/18 04:44 Anion Gap 18 mmol/L 06/15/18 04:44 BUN 10 mg/dL (9-20) 06/15/18 04:44 Creatinine 1.2 mg/dL (0.8-1.5) 06/15/18 04:44 Estimated GFR > 60 ml/min 06/15/18 04:44 BUN/Creatinine Ratio 8 % 06/15/18 04:44 Glucose 108 mg/dL (75-100) H 06/15/18 04:44 POC Glucose 89 (70-105) 06/14/18 07:46 Lactic Acid 1.90 mmol/L (0.7-2.0) 06/13/18 21:27 Calcium 9.2 mg/dL (8.4-10.2) 06/15/18 04:44 Total Bilirubin 0.40 mg/dL (0.1-1.2) 06/13/18 13:49 AST 29 units/L (5-40) 06/13/18 13:49 ALT 27 units/L (7-56) 06/13/18 13:49 Alkaline Phosphatase 53 units/L (35-129) 06/13/18 13:49 Total Protein 8.1 g/dL (6.3-8.2) 06/13/18 13:49 Albumin 4.2 g/dL (3.9-5) 06/13/18 13:49 Albumin/Globulin Ratio 1.1 % 06/13/18 13:49 Lipase 77 units/L (13-60) H 06/13/18 13:49 Urine Color Yellow (Yellow) 06/13/18 21:33 Urine Turbidity Clear (Clear) 06/13/18 21:33 Urine pH 5.0 (5.0-7.0) 06/13/18 21:33 Ur Specific [place] 1.010 (1.003-1.030) 06/13/18 21:33 Urine Protein 30 mg/dl mg/dL (Negative) 06/13/18 21:33 Urine Glucose (UA) Neg mg/dL (Negative) 06/13/18 21:33 Urine Ketones Neg mg/dL (Negative) 06/13/18 21:33 Urine Blood Sm (Negative) 06/13/18 21:33 Urine Nitrite Neg (Negative) 06/13/18 21:33 Urine Bilirubin Neg (Negative) 06/13/18 21:33 Urine Urobilinogen < 2.0 mg/dL (<2.0) 06/13/18 21:33 Ur Leukocyte Esterase Neg (Negative) 06/13/18 21:33 Urine WBC (Auto) 1.0 /HPF (0.0-6.0) 06/13/18 21:33 Urine RBC (Auto) 27.0 /HPF (0.0-6.0) 06/13/18 21:33 Urine Bacteria (Auto) 1+ /HPF (Negative) 06/13/18 21:33 Hyaline Casts 3 /LPF 06/13/18 21:33 Urine Mucus Few /HPF 06/13/18 21:33 Active Medications - Current Medications Current Medications: Generic Name Dose Route Start Last Admin Trade Name Freq PRN Reason Stop Dose Admin Acetaminophen 650 mg 06/14/18 02:27 06/15/18 16:47 Tylenol PO 650 mg Q4H PRN Administration Pain MILD(1-3)/Fever >100.5/ROJAS Lipase/Protease/Amylase 6 each 06/14/18 07:30 06/15/18 18:[address] 12,000 Units PO Not Given AC SHERMAN Diphenhydramine HCl 25 mg 06/14/18 08:25 06/15/18 11:06 Benadryl PO 25 mg Q6H PRN Administration Itching Enoxaparin Sodium 40 mg 06/14/18 10:00 06/15/18 10:16 Lovenox SUB-Q 40 mg QDAY@1000 SHERMAN Administration Hydromorphone HCl 4 mg 06/14/18 14:51 06/15/18 10:21 Dilaudid PO 4 mg Q6H PRN Administration Pain , Severe (7-10) Sodium Chloride 1,000 mls @ 125 mls/hr 06/14/18 03:00 06/14/18 11:20 Nacl 0.9% 1000 Ml IV 125 mls/hr DIRECT SHERMAN Administration Vancomycin HCl 1,500 mg/ 530 mls @ 333.333 mls/hr 06/15/18 16:00 06/15/18 18:38 Sodium Chloride IV Not Given Q12H SHERMAN Lisinopril 20 mg 06/14/18 10:00 06/15/18 10:17 Zestril PO 20 mg DAILY SHERMAN Administration Lorazepam 1 mg 06/14/18 00:12 06/14/18 19:49 Ativan IV 1 mg Q1HR PRN Administration CIWA-Ar 8-15 Lorazepam 2 mg 06/14/18 00:12 06/15/18 16:07 Ativan IV 2 mg Q1HR PRN Administration CIWA-Ar 16-25 Lorazepam 1 mg 06/14/18 02:33 Ativan IV Q4HR PRN Seizures Miscellaneous Medication 1 each 06/15/18 10:00 06/15/18 10:16 Non-Formulary PO 1 each QDAY SHERMAN Administration Morphine Sulfate 2 mg 06/14/18 02:34 06/15/18 16:07 Morphine IV 2 mg Q4H PRN Administration Pain, Moderate (4-6) Ondansetron HCl 4 mg 06/14/18 02:27 06/15/18 11:44 Zofran IV 4 mg Q8H PRN Administration Nausea And Vomiting Sodium Chloride 10 ml 06/14/18 10:00 06/15/18 10:21 Sodium Chloride Flush Syringe 10 Ml IV 10 ml BID SHERMAN Administration Sodium Chloride 10 ml 06/14/18 02:27 Sodium Chloride Flush Syringe 10 Ml IV PRN PRN LINE FLUSH
--- NOTE | 2018-06-16 14:47 | Discharge Summary ---
Providers - Providers Date of Admission: 06/14/18 00:11 Attending physician: MARY RICE MD 06/15/18 10:08 Consult to Physician [CONS] Routine Comment: Consulting Provider: ASHLEIGH ENRIUQEZ Physician Instructions: Reason For Exam: fever, sir Primary care physician: OPERATOR HELPER Hospitalization Condition: Stable Hospital course: 28-year-old man with known history of chronic alcoholic pancreatitis, HIV and major depression. The patient has had multiple admissions in the hospital for bouts of pancreatitis. Per his grandmother and roommate he still actively drinking alcohol every day. The patient presented to the hospital with abdominal pain. Diagnoses Sepsis due to gram-positive bacteremia Left upper extremity cellulitis Acute on chronic hepatitis due to alcohol abuse HIV infection Major depression Acute kidney injury due to vasomotor nephropathy Alcohol dependence and withdrawal, delirium tremens Fever and SIRS Acute metabolic encephalopathy Hospital course The patient was admitted to the hospital with CPAP protocol he was given some bowel rest and IV fluids, after which diet was advanced - -The patient was very combative on 06/14 and absconded from the medical floor yesterday, he was confused and delirious at that time. He was given Ativan and Dilaudid after which he improved. -The patient was also noted by the nurses swallow some pills in the room which included Lunesta , dilaudid and Xanax. His spit up majority of them, it is not known how much of it he swallowed. He was then transferred to [facility] for closer monitoring. -His renal function returned to normal after one day of IV fluids. CT a/p and abdo us were neg -The patient was seen by infectious disease, he was noted to have left upper extremity cellulitis and gram-positive bacteremia. He was placed on antibiotics. His workup and treatment will still in progress when the patient decided to sign out against medical advise and he left the hospital. DVT prophylaxis with Lovenox Disposition: DC-07 LEFT AGAINST MED ADVICE Time spent for discharge: 33 minutes Core Measure Documentation - Palliative Care Palliative Care/ Comfort Measures: Not Applicable - Core Measures Any of the following diagnoses?: none Exam - Constitutional Vitals: Temp Pulse Resp BP Pulse Ox 100.1 F H 114 H 18 148/114 97 06/15/18 16:00 06/15/18 18:00 06/15/18 16:00 06/15/18 18:00 06/15/18 19:36 General appearance: Present: no acute distress, well-nourished - EENT Eyes: Present: PERRL ENT: hearing intact, clear oral mucosa - Neck Neck: Present: supple, normal ROM - Respiratory Respiratory effort: normal Respiratory: bilateral: CTA - Cardiovascular Heart Sounds: Present: S1 & S2. Absent: rub, click - Extremities Extremities: pulses symmetrical Extremity abnormal: edema, erythema (LUE) Peripheral Pulses: within normal limits - Abdominal General gastrointestinal: Present: soft, non-tender, non-distended, normal bowel sounds Male genitourinary: Present: normal - Integumentary Integumentary: Present: clear, warm, dry - Musculoskeletal Musculoskeletal: gait normal, strength equal bilaterally - Psychiatric Psychiatric: appropriate mood/affect, intact judgment & insight - Neurologic Neurologic: CNII-XII intact, moves all extremities Plan Follow up with: ARTEM NEWELL MD [Referring] - 3-5 Days Forms: AMA Form
== END 2018-06-15 21:00 | disposition left against medical advice (07) | DRG 871 ==
LOC: ED 11:59 → 4A 06-14 00:11 → IMCU 06-14 18:05 → 3A 06-15 18:25
PROVIDERS: ADMIT Internal Medicine; ATTEND Internal Medicine
DX: A41.89 Other specified sepsis (principal); K85.90 Acute pancreatitis without necrosis or infection, unspecified; N17.0 Acute kidney failure with tubular necrosis; G93.41 Metabolic encephalopathy; F10.231 Alcohol dependence with withdrawal delirium; L03.114 Cellulitis of left upper limb; K86.0 Alcohol-induced chronic pancreatitis; K70.10 Alcoholic hepatitis without ascites; Y90.0 Blood alcohol level of less than 20 mg/100 ml; F32.9 Major depressive disorder, single episode, unspecified; Z53.21 Procedure and treatment not carried out due to patient leaving prior to being seen by health care provider; Z21 Asymptomatic human immunodeficiency virus [HIV] infection status; F41.9 Anxiety disorder, unspecified; I10 Essential (primary) hypertension; Z82.49 Family history of ischemic heart disease and other diseases of the circulatory system; Z79.01 Long term (current) use of anticoagulants
CPT/HCPCS: 36415; 70450; 71045; 71275; 74177; 76700; 80048; 80053; 81001; 82140; 82962; 83690; 85025; 87040; 87086; 87116; 93005; 93010; 93306; 94760; 96361; 96365; 96367; 96375; G0378; J1170; J1650; J1953; J2060; J2270; J2405; J2543; J3370; J7030; J7040; Q9967

== ENCOUNTER 2018-06-16 12:12 | Inpatient (IN) | payer SELFPAY ==
--- NOTE | 2018-06-16 12:30 | Emergency Department Report ---
Blank Doc - Documentation Documentation: 28 y o male presents to Ed hx of HIV presents with fever, redness and swollen to right arm states recent hospitalization cat remember when LAbs ordered main ED evaluate
[2018-06-16] MEDS ORDERED: TORADOL IV ONE (13:19)
[2018-06-16 13:27] LABS: Basophils % (Auto) 0.2 % (0.0-1.8); Eosinophils # (Auto) 0.1 K/mm3 (0.0-0.4); Eosinophils % (Auto) 1.3 % (0.0-4.3); Hematocrit 38.2 % (35.5-45.6); Hemoglobin 12.9 gm/dl (11.8-15.2); Lymphocytes # (Auto) 1.1 K/mm3 (1.2-5.4); Lymphocytes % (Auto) 12.5 % (13.4-35.0); Mean Corpuscular HGB Conc 34 % (32-34); Mean Corpuscular Volume 87 fl (84-94); Monocytes # (Auto) 0.6 K/mm3 (0.0-0.8); Monocytes % (Auto) 6.3 % (0.0-7.3); Platelet Count 194 K/mm3 (140-440); Red Blood Count 4.37 M/mm3 (3.65-5.03); Red Cell Distribution Width 13.5 % (13.2-15.2)
[2018-06-16 13:34] LABS: BUN/Creatinine Ratio 7; Blood Urea Nitrogen 8 mg/dL (9-20); Calcium 9.6 mg/dL (8.4-10.2); Hemolysis Index 11
[2018-06-16] MEDS ORDERED: XYLOCAINE 1% 20 mL INFILTRATI ONE (13:36)
[2018-06-16] MEDS ORDERED: XYLOCAINE 1% MPF 5 mL ONE (13:41)
[2018-06-16] MEDS ORDERED: ZOFRAN IV ONE (13:56)
[2018-06-16] MEDS ORDERED: MORPHINE IV ONE (13:56)
[2018-06-16] MEDS ORDERED: PEPCID IV ONE (13:56)
[2018-06-16] MEDS ORDERED: VANCOMYCIN 1,750 MG in NACL 0.9% 500 ML 500 ML IV ONE (14:00)
[2018-06-16] MEDS ORDERED: VANCOMYCIN/NS 1 GM/250 ML 1 GM/250 ML BAG IV SCH (14:00)
--- NOTE | 2018-06-16 14:04 | Emergency Department Report ---
ED General Adult HPI - General Chief complaint: Extremity Problem,Nontraumatic Stated complaint: HEAD PAIN/POSS INSECT BITE Time Seen by Provider: 06/16/18 12:26 Source: patient Mode of arrival: Ambulatory Limitations: No Limitations - History of Present Illness Initial comments: Follow-up O patient is a 28-year-old [place] male with a past history of being HIV positive who left AGAINST MEDICAL ADVICE last night secondary to some family issues. Patient was admitted for bacteremia and a flareup of pancreatitis. Patient also was noted to have a right upper extremity cellulitis or septic thrombophlebitis on his right upper extremity and was being seen by ID. The last IDthey wanted the patient switched to vancomycin. Patient states the pain is on his worsening since he left the hospital. Patient is continued to have nausea vomiting and epigastric discomfort as well. Patient also states he has a pounding headache. Pain is 8 out of 10 in severity. Severity scale (0 -10): 10 - Related Data Home Medications Medication Instructions Recorded Confirmed Last Taken Biktarvy 50-200-25 mg (Nf) 1 tab PO DAILY 06/09/18 06/14/18 06/13/18 08:00 Previous Rx's Medication Instructions Recorded Last Taken Type Lisinopril [Zestril] 20 mg PO DAILY #30 tablet 03/16/18 Unknown Rx ALPRAZolam 1 mg PO BID PRN #56 06/11/18 Unknown Rx Hydromorphone HCl [Dilaudid] 4 mg PO Q12H PRN #20 tablet 06/11/18 Unknown Rx Lipase/Protease/Amylase [Creon Dr 6 each PO AC 30 Days capsule 06/11/18 Unknown Rx 12,000 Units] Lunesta 1 mg PO HS #15 06/11/18 Unknown Rx Allergies Allergy/AdvReac Type Severity Reaction Status Date / Time No Known Allergies Allergy Verified 06/16/18 13:23 ED Review of Systems ROS: Stated complaint: HEAD PAIN/POSS INSECT BITE Other details as noted in HPI Comment: All other systems reviewed and negative ED Past Medical Hx - Past Medical History Hx Hypertension: Yes Hx Congestive Heart Failure: No Hx Diabetes: No Hx Asthma: No Hx COPD: No Hx HIV: Yes Additional medical history: pancreatitis-- hiv. Chrons - Surgical History Hx Coronary Stent: No Hx Open Heart Surgery: No Hx Pacemaker: No Hx Internal Defibrillator: No Hx Cholecystectomy: No Hx Appendectomy: No Hx Breast Surgery: No - Social History Smoking Status: Current Every Day Smoker Substance Use Type: None - Medications Home Medications: Home Medications Medication Instructions Recorded Confirmed Last Taken Type Lisinopril [Zestril] 20 mg PO DAILY #30 tablet 03/16/18 06/14/18 Unknown Rx Biktarvy 50-200-25 mg (Nf) 1 tab PO DAILY 06/09/18 06/14/18 06/13/18 08:00 History ALPRAZolam 1 mg PO BID PRN #56 06/11/18 06/14/18 Unknown Rx Hydromorphone HCl [Dilaudid] 4 mg PO Q12H PRN #20 tablet 06/11/18 06/14/18 Unknown Rx Lipase/Protease/Amylase [Creon Dr 6 each PO AC 30 Days capsule 06/11/18 06/14/18 Unknown Rx 12,000 Units] Lunesta 1 mg PO HS #15 06/11/18 06/14/18 Unknown Rx ED Physical Exam - General Limitations: No Limitations General appearance: alert, in no apparent distress - Head Head exam: Present: atraumatic, normocephalic - Eye Eye exam: Present: normal appearance - ENT ENT exam: Present: mucous membranes moist - Neck Neck exam: Present: normal inspection - Respiratory Respiratory exam: Present: normal lung sounds bilaterally. Absent: respiratory distress, wheezes, rales, rhonchi - Cardiovascular Cardiovascular Exam: Present: regular rate, normal rhythm. Absent: systolic murmur, diastolic murmur, rubs, gallop - GI/Abdominal GI/Abdominal exam: Present: soft, tenderness (epigastric tenderness), normal bowel sounds. Absent: distended, guarding, rebound, rigid - Rectal Rectal exam: Present: deferred - Extremities Exam Extremities exam: Present: normal inspection, other (patient has a area of erythema to the right forearm with central fluctuance or induration. This consistent with an abscess approximately 3 cm) - Back Exam Back exam: Present: normal inspection - Neurological Exam Neurological exam: Present: alert, oriented X3 - Psychiatric Psychiatric exam: Present: normal affect, normal mood - Skin Skin exam: Present: warm, dry, intact, normal color. Absent: rash ED Course Vital Signs 06/16/18 12:26 Temperature 98.3 F Pulse Rate 114 H Respiratory 16 Rate Blood Pressure 130/82 O2 Sat by Pulse 99 Oximetry - I & D Right Upper Arm Type of Procedure: Complex Blade Size: 11 I & D Procedure: betadine prep, sterile drapes applied, sterile dressing applied, gauze wick placed Progress: Large amounts of purulent material drained. The abscess was probed with hemostat. Speck with iodoform gauze. ED Medical Decision Making - Lab Data Result diagrams: 06/16/18 12:56 06/16/18 12:56 Lab Results 06/16/18 06/16/18 Range/Units 12:56 12:56 WBC 8.9 (4.5-11.0) K/mm3 RBC 4.37 (3.65-5.03) M/mm3 Hgb 12.9 (11.8-15.2) gm/dl Hct 38.2 (35.5-45.6) % MCV 87 (84-94) fl MCH 30 (28-32) pg MCHC 34 (32-34) % RDW 13.5 (13.2-15.2) % Plt Count 194 (140-440) K/mm3 Lymph % (Auto) 12.5 L (13.4-35.0) % [place] % (Auto) 6.3 (0.0-7.3) % Eos % (Auto) 1.3 (0.0-4.3) % Baso % (Auto) 0.2 (0.0-1.8) % Lymph # 1.1 L (1.2-5.4) K/mm3 [place] # 0.6 (0.0-0.8) K/mm3 Eos # 0.1 (0.0-0.4) K/mm3 Baso # 0.0 (0.0-0.1) K/mm3 Seg Neutrophils % 79.7 H (40.0-70.0) % Seg Neutrophils # 7.1 (1.8-7.7) K/mm3 Sodium 142 (137-145) mmol/L Potassium 4.4 (3.6-5.0) mmol/L Chloride 103.5 (98-107) mmol/L Carbon Dioxide 25 (22-30) mmol/L Anion Gap 18 mmol/L BUN 8 L (9-20) mg/dL Creatinine 1.1 (0.8-1.5) mg/dL Estimated GFR > 60 ml/min BUN/Creatinine Ratio 7 % Glucose 103 H (75-100) mg/dL Calcium 9.6 (8.4-10.2) mg/dL - Medical Decision Making Patient does states he will agreed to be readmitted back to the hospital. He was having some family issues which caused him to sign out AGAINST MEDICAL ADVICE. Patient does states he still cannot keep anything down and is having a great deal of epigastric discomfort. Patient was given pain meds. Patient be started on vancomycin which was the suggestion of ID. Patient be admitted to Dr. May. Critical care attestation.: If time is entered above; I have spent that time in minutes in the direct care of this critically ill patient, excluding procedure time. ED Disposition Clinical Impression: Abscess, Cellulitis of arm, right, Bacteremia Acute pancreatitis Qualifiers: Pancreatitis type: alcohol induced Acute pancreatitis complication: unspecified Qualified Code(s): K85.20 - Alcohol induced acute pancreatitis without necrosis or infection Nausea & vomiting Qualifiers: Vomiting type: unspecified Vomiting Intractability: intractable Qualified Code(s): R11.2 - Nausea with vomiting, unspecified HIV (human immunodeficiency virus infection) Qualifiers: HIV symptom status: unspecified Qualified Code(s): B20 - Human immunodeficiency virus [HIV] disease Disposition: DC-09 OP ADMIT IP TO THIS HOSP Is pt being admited?: Yes Does the pt Need Aspirin: No Condition: Stable Time of Disposition: 14:05
--- NOTE | 2018-06-16 14:16 | History and Physical Report ---
History of Present Illness Chief complaint: My arm hurts, and my stomach hurts too. I had to leave last night. History of present illness: 28 YO Male with HIV, Chronic Pancreatitis, Depression, Anxiety, HTN who left AMA but presents ot ED for reevaluation. Pt states that he has experienced worsening abdominal pain, as well as Right arm pain with increased redness and swelling. Pt also acknowledges persistent nausea, and epigastric discomfort over the past 4 days with persistent symptoms over the past 8 hours. Pt transported to [facility] via private vehicle. Pt seen and evaluated in ED and found to have RUE Cellulitis and Abscess. Pt underwent I&D in ED. Pt also reports abdominal discomfort secondary to ETOH Pancreatitis. Pt admitted to medical floor. Pt left AMA on 06/15/18. Medication reconciled at time of admission. Past History Past Medical History: HIV/AIDS, hypertension, other (Depression, Pancreatitis) Past Surgical History: No surgical history, Other (reviewed) Social history: single, smoking, alcohol abuse Family history: hypertension Medications and Allergies Allergies Allergy/AdvReac Type Severity Reaction Status Date / Time No Known Allergies Allergy Verified 06/16/18 13:23 Home Medications Medication Instructions Recorded Confirmed Last Taken Type Lisinopril [Zestril] 20 mg PO DAILY #30 tablet 03/16/18 06/14/18 Unknown Rx Biktarvy 50-200-25 mg (Nf) 1 tab PO DAILY 06/09/18 06/14/18 06/13/18 08:00 History ALPRAZolam 1 mg PO BID PRN #56 06/11/18 06/14/18 Unknown Rx Hydromorphone HCl [Dilaudid] 4 mg PO Q12H PRN #20 tablet 06/11/18 06/14/18 Unknown Rx Lipase/Protease/Amylase [Taylor Dr 6 each PO AC 30 Days capsule 06/11/18 06/14/18 Unknown Rx 12,000 Units] Lunesta 1 mg PO HS #15 06/11/18 06/14/18 Unknown Rx Active Meds: Active Medications Vancomycin HCl (Vancomycin/Ns 1 Gm/250 Ml) 1 gm in 250 mls @ 166.667 mls/hr IV Q12H SHERMAN; Protocol Review of Systems Constitutional: no weight loss, no weight gain, no fever, no chills Ears, nose, mouth and throat: no ear pain, no ear discharge, no tinnitis, no decreased hearing, no nose pain Cardiovascular: no chest pain, no orthopnea, no palpitations, no rapid/irregular heart beat, no edema, no syncope Respiratory: no cough, no cough with sputum, no excessive sputum, no hemoptysis, no shortness of breath Gastrointestinal: abdominal pain, nausea, no vomiting, no diarrhea, no change in bowel habits Genitourinary Male: no hematuria, no flank pain, no discharge, no urinary frequency Rectal: no pain, no incontinence, no bleeding Musculoskeletal: no neck stiffness, no neck pain, no shooting arm pain, no arm numbness/tingling, no shooting leg pain Integumentary: no rash, no pruritis, no redness, no sores, no wounds Neurological: no head injury, no transient paralysis, no paralysis, no weakness, no parathesias, no numbness Psychiatric: no anxiety, no memory loss, no change in sleep habits, no sleep disturbances, no insomnia, no hypersomnia, no change in appetite Endocrine: no cold intolerance, no heat intolerance, no polyphagia, no excessive thirst, no polydipsia, no polyuria, no nocturia Hematologic/Lymphatic: no easy bruising, no easy bleeding Allergic/Immunologic: no urticaria, no allergic rhinitis Exam - Constitutional Vitals: Temp Pulse Resp BP Pulse Ox 98.3 F 114 H 16 130/82 99 06/16/18 12:26 06/16/18 12:26 06/16/18 12:26 06/16/18 12:26 06/16/18 12:26 General appearance: Present: mild distress - EENT Eyes: Present: PERRL ENT: hearing intact, clear oral mucosa - Neck Neck: Present: supple, normal ROM - Respiratory Respiratory effort: normal Respiratory: bilateral: CTA - Cardiovascular Heart Sounds: Present: S1 & S2. Absent: rub, click - Extremities Extremity abnormal: edema, erythema, other (RUE fluctuant mass, erythema) Peripheral Pulses: within normal limits - Abdominal General gastrointestinal: Present: soft, non-tender, non-distended, normal bowel sounds Male genitourinary: Present: normal - Integumentary Integumentary: Present: clear, warm, dry - Musculoskeletal Musculoskeletal: gait normal, strength equal bilaterally - Psychiatric Psychiatric: appropriate mood/affect, intact judgment & insight - Neurologic Neurologic: CNII-XII intact, moves all extremities Results - Labs CBC & Chem 7: 06/16/18 12:56 06/16/18 12:56 Labs: Abnormal lab results 06/16/18 06/16/18 Range/Units 12:56 12:56 Lymph % (Auto) 12.5 L (13.4-35.0) % Lymph # 1.1 L (1.2-5.4) K/mm3 Seg Neutrophils % 79.7 H (40.0-70.0) % BUN 8 L (9-20) mg/dL Glucose 103 H (75-100) mg/dL Assessment and Plan - Patient Problems (1) Cellulitis of arm, right Status: Acute Plan to address problem: IV antibiotic therapy, Pt S/P i&d of right arm abscess. supportive care, dressing CDI. (2) EtOH dependence Status: Acute Qualifiers: Substance use status: uncomplicated Qualified Code(s): F10.20 - Alcohol dependence, uncomplicated Plan to address problem: [facility] protocol, (3) HIV (human immunodeficiency virus infection) Status: Acute Qualifiers: HIV symptom status: unspecified Qualified Code(s): B20 - Human immunodeficiency virus [HIV] disease Plan to address problem: Continue current therapy, Outpatient ID F/U care, (4) Chronic pancreatitis Status: Acute Qualifiers: Pancreatitis type: unspecified pancreatitis type Qualified Code(s): K86.1 - Other chronic pancreatitis Plan to address problem: IVF resuscitation, pain control, supportive care. (5) Nicotine dependence Status: Acute Qualifiers: Nicotine product type: cigarettes Plan to address problem: Smoking cessation counseling, supportive care. (6) DVT prophylaxis Status: Acute Plan to address problem: SCD to BLE while in bed
[2018-06-16] MEDS ORDERED: BENADRYL ONE (14:25)
[2018-06-16] MEDS ORDERED: BENADRYL IV ONE (14:26)
[2018-06-16] MEDS ORDERED: SODIUM CHLORIDE FLUSH SYRINGE 10 ML IV PRN (14:35)
[2018-06-16] MEDS ORDERED: PROVENTIL IH PRN (14:35)
[2018-06-16] MEDS ORDERED: PERCOCET 5/325 PO PRN (14:35)
[2018-06-16] MEDS ORDERED: ZOFRAN IV PRN (14:35)
[2018-06-16] MEDS ORDERED: TYLENOL PO PRN (14:35)
[2018-06-16] MEDS ORDERED: ATIVAN IV PRN (14:55)
[2018-06-16] MEDS ORDERED: NACL 0.45% 1000 ML 1,000 ML IV SCH (15:00)
[2018-06-16] MEDS ORDERED: NACL 0.45% 1,000 ML IV SCH (15:00)
[2018-06-16] MEDS ORDERED: VANCOMYCIN PHARMACY TO DOSE IV SCH (15:00)
[2018-06-16 15:07] VITALS: BP 126/78
[2018-06-16] MEDS ORDERED: CREON DR 12,000 UNITS PO SCH (16:30)
[2018-06-16] MEDS ORDERED: XANAX PO PRN (16:51)
[2018-06-16] MEDS ORDERED: LUNESTA 1 MG PO SCH (22:00)
[2018-06-16] MEDS ORDERED: SODIUM CHLORIDE FLUSH SYRINGE 10 ML IV SCH (22:00)
[2018-06-17] MEDS ORDERED: VANCOMYCIN 1,250 MG in NACL 0.9% 250ML 250 ML IV SCH (02:00)
[2018-06-17] MEDS ORDERED: ZESTRIL PO SCH (10:00)
[2018-06-17] MEDS ORDERED: BIKTARVY PO SCH (10:00)
== END 2018-06-16 17:45 | disposition left against medical advice (07) | DRG 602 ==
LOC: ED 12:12 → 3A 14:35
PROVIDERS: ADMIT Internal Medicine; ATTEND Internal Medicine
DX: L03.113 Cellulitis of right upper limb (principal); K85.20 Alcohol induced acute pancreatitis without necrosis or infection; B20 Human immunodeficiency virus [HIV] disease; R78.81 Bacteremia; K86.1 Other chronic pancreatitis; F10.20 Alcohol dependence, uncomplicated; Y90.0 Blood alcohol level of less than 20 mg/100 ml; Z53.21 Procedure and treatment not carried out due to patient leaving prior to being seen by health care provider; F32.9 Major depressive disorder, single episode, unspecified; F41.9 Anxiety disorder, unspecified; I10 Essential (primary) hypertension; F17.210 Nicotine dependence, cigarettes, uncomplicated; Z79.01 Long term (current) use of anticoagulants; Z79.899 Other long term (current) drug therapy; Z82.49 Family history of ischemic heart disease and other diseases of the circulatory system
CPT/HCPCS: 36415; 80048; 80320; 85025; 87116; G0378; G0480; J1200; J1885; J2270; J2405; J3370; J7030; J7040

== ENCOUNTER 2018-06-22 07:21 | Emergency (ER) | payer SELFPAY ==
[2018-06-22 07:28] VITALS: BP 127/80
[2018-06-22 08:01] LABS: Hematocrit 37.3 % (35.5-45.6); Hemoglobin 12.6 gm/dl (11.8-15.2); Mean Corpuscular HGB Conc 34 % (32-34); Mean Corpuscular Volume 87 fl (84-94); Platelet Count 351 K/mm3 (140-440); Red Blood Count 4.27 M/mm3 (3.65-5.03); Red Cell Distribution Width 13.9 % (13.2-15.2)
[2018-06-22 08:21] LABS: BUN/Creatinine Ratio 11; Blood Urea Nitrogen 10 mg/dL (9-20); Hemolysis Index 2
[2018-06-22 08:25] LABS: Bilirubin,Urine NEG (Negative); Blood,Urine NEG (Negative); Color,Urine Yellow (Yellow); Mucus,Urine FEW /HPF; Protein,Urine <15 mg/dL mg/dL (Negative); Urobilinogen,Urine < 2.0 mg/dL (<2.0)
[2018-06-22] MEDS ORDERED: ZOFRAN IV ONE (08:39)
[2018-06-22] MEDS ORDERED: MORPHINE IV ONE (08:39)
[2018-06-22] MEDS ORDERED: NACL 0.9% 1000 ML 1,000 ML IV ONE (08:39)
--- NOTE | 2018-06-22 08:44 | Emergency Department Report ---
ED Abdominal Pain HPI - General Chief Complaint: Abdominal Pain Stated Complaint: SNEEZING/COUGH/CHRONICPANCREATITIS Time Seen by Provider: 06/22/18 07:40 Source: patient Mode of arrival: Ambulatory Limitations: No Limitations - History of Present Illness Initial Comments: This is a 28-year-old male with a history of chronic pancreatitis who is admitted here several times presents to ED complaining of left-sided abdominal pain started 2 days ago. Patient states he has been having some nausea with no vomiting or diarrhea. She denies fever or dysuria. MD Complaint: abdominal pain Location: diffuse Migration to: no migration Severity: moderate Severity scale (0 -10): 10 - Related Data Home Medications Medication Instructions Recorded Confirmed Last Taken Biktarvy 50-200-25 mg (Nf) 1 tab PO DAILY 06/09/18 06/14/18 06/13/18 08:00 Previous Rx's Medication Instructions Recorded Last Taken Type Lisinopril [Zestril] 20 mg PO DAILY #30 tablet 03/16/18 Unknown Rx ALPRAZolam 1 mg PO BID PRN #56 06/11/18 Unknown Rx Hydromorphone HCl [Dilaudid] 4 mg PO Q12H PRN #20 tablet 06/11/18 Unknown Rx Lipase/Protease/Amylase [Creon Dr 6 each PO AC 30 Days capsule 06/11/18 Unknown Rx 12,000 Units] Lunesta 1 mg PO HS #15 06/11/18 Unknown Rx Dicyclomine [Bentyl] 10 mg PO TID #30 capsule 06/22/18 Unknown Rx Ondansetron [Zofran ODT TAB] 8 mg PO Q12HR #30 tab.rapdis 06/22/18 Unknown Rx Allergies Allergy/AdvReac Type Severity Reaction Status Date / Time No Known Allergies Allergy Verified 06/16/18 13:23 ED Review of Systems ROS: Stated complaint: SNEEZING/COUGH/CHRONICPANCREATITIS Other details as noted in HPI Comment: All other systems reviewed and negative ED Past Medical Hx - Past Medical History Hx Hypertension: Yes Hx Congestive Heart Failure: No Hx Diabetes: No Hx Asthma: No Hx COPD: No Hx HIV: Yes Additional medical history: pancreatitis-- hiv. Chrons - Surgical History Hx Coronary Stent: No Hx Open Heart Surgery: No Hx Pacemaker: No Hx Internal Defibrillator: No Hx Cholecystectomy: No Hx Appendectomy: No Hx Breast Surgery: No - Social History Smoking Status: Former Smoker Substance Use Type: None - Medications Home Medications: Home Medications Medication Instructions Recorded Confirmed Last Taken Type Lisinopril [Zestril] 20 mg PO DAILY #30 tablet 03/16/18 06/14/18 Unknown Rx Biktarvy 50-200-25 mg (Nf) 1 tab PO DAILY 06/09/18 06/14/18 06/13/18 08:00 History ALPRAZolam 1 mg PO BID PRN #56 06/11/18 06/14/18 Unknown Rx Hydromorphone HCl [Dilaudid] 4 mg PO Q12H PRN #20 tablet 06/11/18 06/14/18 Unknown Rx Lipase/Protease/Amylase [Creon Dr 6 each PO AC 30 Days capsule 06/11/1805/27 Unknown Rx 12,000 Units] Lunesta 1 mg PO HS #15 06/11/18 06/14/18 Unknown Rx Dicyclomine [Bentyl] 10 mg PO TID #30 capsule 06/22/18 Unknown Rx Ondansetron [Zofran ODT TAB] 8 mg PO Q12HR #30 tab.rapdis 06/22/18 Unknown Rx ED Physical Exam - General Limitations: No Limitations General appearance: alert, in no apparent distress - Head Head exam: Present: atraumatic, normocephalic - Eye Eye exam: Present: normal appearance - ENT ENT exam: Present: mucous membranes moist - Neck Neck exam: Present: normal inspection - Respiratory Respiratory exam: Present: normal lung sounds bilaterally. Absent: respiratory distress - Cardiovascular Cardiovascular Exam: Present: regular rate, normal rhythm. Absent: systolic murmur, diastolic murmur, rubs, gallop - GI/Abdominal GI/Abdominal exam: Present: soft, tenderness (palpation of the left lower quadrant), normal bowel sounds. Absent: distended, guarding, rebound, mass - Rectal Rectal exam: Present: deferred - Extremities Exam Extremities exam: Present: normal inspection - Back Exam Back exam: Present: normal inspection - Neurological Exam Neurological exam: Present: alert, oriented X3 - Psychiatric Psychiatric exam: Present: normal affect, normal mood - Skin Skin exam: Present: warm, dry, intact, normal color. Absent: rash ED Course Vital Signs 06/22/18 07:27 Temperature 97.8 F Pulse Rate 120 H Respiratory 18 Rate Blood Pressure 127/80 [Right] O2 Sat by Pulse 100 Oximetry ED Medical Decision Making - Lab Data Result diagrams: 06/22/18 07:46 06/22/18 07:46 Laboratory Results - last 24 hr 06/22/18 06/22/18 06/22/18 07:46 07:46 07:46 WBC 5.1 RBC 4.27 Hgb 12.6 Hct 37.3 MCV 87 MCH 30 MCHC 34 RDW 13.9 Plt Count 351 Sodium 142 Potassium 4.0 Chloride 105.3 Carbon Dioxide 25 Anion Gap 16 BUN 10 Creatinine 0.9 Estimated GFR > 60 BUN/Creatinine Ratio 11 Glucose 103 H Calcium 9.0 Amylase 110 Lipase 102 H Urine Color Yellow Urine Turbidity Clear Urine pH 6.0 Ur Specific [place] 1.025 Urine Protein <15 mg/dl Urine Glucose (UA) Neg Urine Ketones Tr Urine Blood Neg Urine Nitrite Neg Urine Bilirubin Neg Urine Urobilinogen < 2.0 Ur Leukocyte Esterase Neg Urine WBC (Auto) 1.0 Urine RBC (Auto) 2.0 U Epithel Cells (Auto) < 1.0 Urine Mucus Few - Medical Decision Making 28-year-old male who presents for chronic pancreatitis All labs are within normal limits no white count. Patient received IVF resuscitation, Zofran, pain medication in the ED. At this time patient will be discharged home with antinausea medication and fentanyl for pain. Discussed continue to follow up with hvac sales engineer. Patient is in no acute distress. Vital signs are within normal limits. Critical care attestation.: If time is entered above; I have spent that time in minutes in the direct care of this critically ill patient, excluding procedure time. ED Disposition Clinical Impression: Chronic pancreatitis, Nausea & vomiting Disposition: DC-01 TO HOME OR SELFCARE Is pt being admited?: No Does the pt Need Aspirin: No Condition: Stable Instructions: Pancreatitis (ED), Acute Nausea and Vomiting (ED) Additional Instructions: Make sure to follow up with the primary care physician as discussed. Continue to follow up with your hvac sales engineer. Do not drink alcohol at any time as discussed of pancreatitis. Take all your medications as you've been prescribed. If you have any worsening symptoms or develop new symptoms please return to ED immediately. Prescriptions: Dicyclomine [Bentyl] 10 mg PO TID #30 capsule Ondansetron [Zofran ODT TAB] 8 mg PO Q12HR #30 tab.rapdis Referrals: [facility] [Other] - 3-5 Days [facility] [Provider Group] - 3-5 Days [facility] [Provider Group] - 3-5 Days Forms: Work/School Release Form(ED) Time of Disposition: 09:49
[2018-06-22] MEDS ORDERED: CLEOCIN 900 MG/50 mL 900 MG/50 ML BAG IV ONE (08:48)
[2018-06-22] MEDS ORDERED: BENADRYL IV ONE (09:29)
[2018-06-22] MEDS ORDERED: TORADOL IV ONE (09:30)
[2018-06-22] MEDS ORDERED: BENADRYL ONE (09:32)
[2018-06-22] MEDS ORDERED: TORADOL ONE (09:34)
[2018-06-22 14:48] LABS: Anisocytosis 1+; Basophils % (Manual) 0 % (0.0-1.8); Myelocytes # (Manual) 0.1 K/mm3; Total Cells Counted 100
[2018-06-22 14:49] LABS: Giant Platelets Rare; Macrocytosis Few; Platelet Estimate Cons; Poikilocytosis 1+
== END 2018-06-22 10:30 | disposition home or self-care (01) ==
LOC: ED 07:21
DX: K86.1 Other chronic pancreatitis (principal); I10 Essential (primary) hypertension; Z87.891 Personal history of nicotine dependence
CPT/HCPCS: 36415; 80048; 81001; 82150; 83690; 85007; 85025; 96365; 96375; 99283; J1200; J2270; J2405; J7030; J1885

== ENCOUNTER 2018-08-08 16:22 | Emergency (ER) | payer OTHER ==
[2018-08-08 17:05] VITALS: BP 142/98
--- NOTE | 2018-08-08 17:10 | Emergency Department Report ---
Chief Complaint: Abdominal Pain Stated Complaint: CHRONIC PANCREATITIS FLARE/PAIN Time Seen by Provider: 08/08/18 17:04 - HPI History of Present Illness: This is a 28 y.o. male that presents to the ER with abdominal pain. PMH: HTN, HIV, crohns, chronic pancreatitis. CC: N/V/D - Exam Vital Signs: Vital Signs 08/08/18 17:04 Temperature 97.9 F Pulse Rate 117 H Respiratory 18 Rate Blood Pressure 142/98 O2 Sat by Pulse 100 Oximetry MSE screening note: Focused history and physical exam performed. Due to findings the following was ordered: labs and CT of abdomen and pelvis ED Medical Decision Making - Lab Data Result diagrams: 08/08/18 17:11 08/08/18 17:11 ED Disposition for MSE Condition: Stable
[2018-08-08 17:28] LABS: Basophils % (Auto) 0.2 % (0.0-1.8); Eosinophils # (Auto) 0.1 K/mm3 (0.0-0.4); Eosinophils % (Auto) 1.7 % (0.0-4.3); Hematocrit 44.9 % (35.5-45.6); Hemoglobin 15.3 gm/dl (11.8-15.2); Lymphocytes # (Auto) 1.5 K/mm3 (1.2-5.4); Mean Corpuscular HGB Conc 34 % (32-34); Mean Corpuscular Volume 88 fl (84-94); Monocytes # (Auto) 0.3 K/mm3 (0.0-0.8); Monocytes % (Auto) 6.1 % (0.0-7.3); Platelet Count 172 K/mm3 (140-440); Red Blood Count 5.08 M/mm3 (3.65-5.03); Red Cell Distribution Width 14.1 % (13.2-15.2)
[2018-08-08 17:52] LABS: Alanine Aminotransferase 33 units/L (7-56); Albumin 4.5 g/dL (3.9-5); BUN/Creatinine Ratio 19; Blood Urea Nitrogen 17 mg/dL (9-20); Calcium 9.8 mg/dL (8.4-10.2); Hemolysis Index 27
[2018-08-08] MEDS ORDERED: NACL 0.9% 1000 ML 1,000 ML IV ONE (17:55)
[2018-08-08] MEDS ORDERED: TORADOL IV ONE (17:55)
[2018-08-08] MEDS ORDERED: BENTYL IM ONE (17:55)
[2018-08-08] MEDS ORDERED: ZOFRAN IV ONE ×2 (17:55→20:04)
[2018-08-08 18:14] LABS: Bilirubin,Urine NEG (Negative); Blood,Urine NEG (Negative); Color,Urine Yellow (Yellow); Protein,Urine <15 mg/dL mg/dL (Negative); Urobilinogen,Urine < 2.0 mg/dL (<2.0)
[2018-08-08 18:16] LABS: WBC,Urine < 1.0 /HPF (0.0-6.0)
--- NOTE | 2018-08-08 18:55 | Emergency Department Report ---
ED Abdominal Pain HPI - General Chief Complaint: Abdominal Pain Stated Complaint: CHRONIC PANCREATITIS FLARE/PAIN Time Seen by Provider: 08/08/18 17:04 Source: patient Mode of arrival: Ambulatory Limitations: No Limitations - History of Present Illness Initial Comments: This is a 28 y.o. male that presents to the ER with abdominal pain. PMH: HTN, HIV, crohns, chronic pancreatitis. CC: N/V/D Complaint: abdominal pain Onset/Timin -: days(s) Location: LUQ Radiation: none Severity: moderate Severity scale (0 -10): 6 Quality: aching, sharp Consistency: constant Improves With: nothing Worsens With: nothing Associated Symptoms: nausea, vomiting. denies: diarrhea, fever, chills, constipation, dysuria, hematemesis, hematochezia, melena, hematuria, anorexia, syncope - Related Data Home Medications Medication Instructions Recorded Confirmed Last Taken Biktarvy 50-200-25 mg (Nf) 1 tab PO DAILY 06/09/18 06/14/18 06/13/18 08:00 Previous Rx's Medication Instructions Recorded Last Taken Type Lisinopril [Zestril] 20 mg PO DAILY #30 tablet 03/16/18 Unknown Rx ALPRAZolam 1 mg PO BID PRN #56 06/11/18 Unknown Rx Hydromorphone HCl [Dilaudid] 4 mg PO Q12H PRN #20 tablet 06/11/18 Unknown Rx Lipase/Protease/Amylase [Creon Dr 6 each PO AC 30 Days capsule 06/11/18 Unknown Rx 12,000 Units] Lunesta 1 mg PO HS #15 06/11/18 Unknown Rx Dicyclomine [Bentyl] 10 mg PO TID #30 capsule 06/22/18 Unknown Rx Ondansetron [Zofran ODT TAB] 8 mg PO Q12HR #30 tab.rapdis 06/22/18 Unknown Rx Dicyclomine [Bentyl] 10 mg PO QID PRN #20 capsule 08/08/18 Unknown Rx Metoclopramide [Reglan] 10 mg PO Q6H PRN #30 tablet 08/08/18 Unknown Rx diphenhydrAMINE [Benadryl CAP] 25 mg PO Q8HR PRN #30 capsule 08/08/18 Unknown Rx traMADol [Ultram] 50 mg PO Q6HR PRN #12 tablet 08/08/18 Unknown Rx Allergies Allergy/AdvReac Type Severity Reaction Status Date / Time No Known Allergies Allergy Verified 08/08/18 16:25 ED Review of Systems ROS: Stated complaint: CHRONIC PANCREATITIS FLARE/PAIN Other details as noted in HPI Constitutional: denies: chills, fever Eyes: denies: eye pain, eye discharge, vision change ENT: denies: ear pain, throat pain Respiratory: denies: cough, shortness of breath, wheezing Cardiovascular: denies: chest pain, palpitations Endocrine: no symptoms reported Gastrointestinal: abdominal pain, nausea. denies: diarrhea, constipation, hematemesis, melena, hematochezia Genitourinary: denies: urgency, dysuria, frequency, hematuria, discharge Musculoskeletal: denies: back pain, joint swelling, arthralgia Skin: denies: rash, lesions Neurological: denies: headache, weakness, paresthesias Psychiatric: denies: anxiety, depression Hematological/Lymphatic: denies: easy bleeding, easy bruising ED Past Medical Hx - Past Medical History Hx Hypertension: Yes Hx Congestive Heart Failure: No Hx Diabetes: No Hx Asthma: No Hx COPD: No Hx HIV: Yes Additional medical history: pancreatitis. Crohn's - Surgical History Past Surgical History?: No Hx Coronary Stent: No Hx Open Heart Surgery: No Hx Pacemaker: No Hx Internal Defibrillator: No Hx Cholecystectomy: No Hx Appendectomy: No Hx Breast Surgery: No - Social History Smoking Status: Current Every Day Smoker Substance Use Type: None - Medications Home Medications: Home Medications Medication Instructions Recorded Confirmed Last Taken Type Lisinopril [Zestril] 20 mg PO DAILY #30 tablet 03/16/18 06/14/18 Unknown Rx Biktarvy 50-200-25 mg (Nf) 1 tab PO DAILY 06/09/18 06/14/18 06/13/18 08:00 History ALPRAZolam 1 mg PO BID PRN #56 06/11/18 06/14/18 Unknown Rx Hydromorphone HCl [Dilaudid] 4 mg PO Q12H PRN #20 tablet 06/11/18 06/14/18 Unknown Rx Lipase/Protease/Amylase [Creon Dr 6 each PO AC 30 Days capsule 06/11/18 06/14/18 Unknown Rx 12,000 Units] Lunesta 1 mg PO HS #15 06/11/18 06/14/18 Unknown Rx Dicyclomine [Bentyl] 10 mg PO TID #30 capsule 06/22/18 Unknown Rx Ondansetron [Zofran ODT TAB] 8 mg PO Q12HR #30 tab.rapdis 06/22/18 Unknown Rx Dicyclomine [Bentyl] 10 mg PO QID PRN #20 capsule 08/08/18 Unknown Rx Metoclopramide [Reglan] 10 mg PO Q6H PRN #30 tablet 08/08/18 Unknown Rx diphenhydrAMINE [Benadryl CAP] 25 mg PO Q8HR PRN #30 capsule 08/08/18 Unknown Rx traMADol [Ultram] 50 mg PO Q6HR PRN #12 tablet 08/08/18 Unknown Rx ED Physical Exam - General Limitations: No Limitations General appearance: alert, in no apparent distress - Head Head exam: Present: atraumatic, normocephalic - Eye Eye exam: Present: normal appearance, PERRL, EOMI Pupils: Present: normal accommodation - ENT ENT exam: Present: mucous membranes moist - Neck Neck exam: Present: normal inspection, full ROM. Absent: lymphadenopathy - Respiratory Respiratory exam: Present: normal lung sounds bilaterally. Absent: respiratory distress, wheezes, stridor, chest wall tenderness - Cardiovascular Cardiovascular Exam: Present: regular rate, normal rhythm, normal heart sounds. Absent: systolic murmur, diastolic murmur, rubs, gallop - GI/Abdominal GI/Abdominal exam: Present: soft, rebound (LUQ ), normal bowel sounds. Absent: distended, tenderness (LUQ ), guarding, rigid, bruit, hernia - Expanded GI/Abdominal Exam Expanded GI/Abdominal exam: Present: Rovsing's sign. Absent: psoas sign, obturator sign, heel tap sign, Cam's sign, tenderness at Mcbur[place]'s Point, ascites - Rectal Rectal exam: Present: deferred - Extremities Exam Extremities exam: Present: normal inspection - Back Exam Back exam: Present: normal inspection, full ROM, muscle spasm. Absent: tendern ess, CVA tenderness (R), CVA tenderness (L), paraspinal tenderness, vertebral tenderness, rash noted - Neurological Exam Neurological exam: Present: alert, oriented X3, CN II-XII intact, normal gait, reflexes normal. Absent: motor sensory deficit - Psychiatric Psychiatric exam: Present: normal affect, normal mood - Skin Skin exam: Present: warm, dry, intact, normal color. Absent: rash ED Course Vital Signs 08/08/18 17:04 Temperature 97.9 F Pulse Rate 117 H Respiratory 18 Rate Blood Pressure 142/98 O2 Sat by Pulse 100 Oximetry ED Medical Decision Making - Lab Data Result diagrams: 08/08/18 17:11 08/08/18 17:11 - Radiology Data Radiology results: report reviewed, image reviewed [facility] [address] [place] [address] Cat Scan Report Signed Patient: AARON ALICEA MR#: [id number] : 1990 Acct:[id number] Age/Sex: 28 / M ADM Date: 08/08/18 Loc: ED Attending Dr: Ordering Physician: NAGI POWERS Date of Service: 08/08/18 Procedure(s): CT abdomen pelvis w con Accession Number(s): [id number] cc: NAGI POWERS PROCEDURE: CT abdomen and pelvis with contrast. TECHNIQUE: Computerized axial tomography of the abdomen and pelvis was performed after the IV injection of iodinated nonionic contrast. CT DOSE LENGTH PRODUCT: 1303.7 mGycm HISTORY: Diffuse abdominal pain. COMPARISONS: CT abdomen and pelvis 06/14/2018. Dictation not available. FINDINGS: The lung bases are clear. There are no pleural effusions. The heart size is normal. The liver and spleen appear normal. There are multiple calcifications throughout the pancreas. This suggests previous pancreatitis. The gallbladder is present. There is no biliary dilatation. The adrenal glands are not enlarged. Both kidneys appear normal in size and configuration. The abdominal aorta has a normal caliber. There is no retroperitoneal adenopathy. The unopacified gastrointestinal tract is unremarkable. A normal appendix is visible. The bladder, seminal vesicles and prostate appear normal. The regional skeleton appears intact. IMPRESSION: Multiple pancreatic calcifications suggesting previous chronic pancreatitis. No evidence of acute disease in the abdomen or pelvis. This document is electronically signed by Aquiles Taylor MD., Aug 08 2018 07:40:31 PM ET Transcribed By: [facility] Dictated By: AQUILES TAYLOR MD Electronically Authenticated By: AQUILES TAYLOR MD Signed Date/Time: 08/08/181941 DD/ 58 TD/TT: 08/08/181858 - Medical Decision Making CT abdomen and pelvis is normal there is no acute pancreatitis multiple chronic pancreatitis calcifications , no colitis . no gallstones .no cholecystitis (plan DC to home with prescription for PPI or H2 block , short-term ultram , provide referral to GI and salicylate note for PCP referral patient has infectious disease doctor advised to follow with same for maintenance of her medications patient is currently tolerating by mouth intake without nausea vomiting be DC'd home in stable condition at this time. Critical care attestation.: If time is entered above; I have spent that time in minutes in the direct care of this critically ill patient, excluding procedure time. ED Disposition Clinical Impression: Abdominal pain Qualifiers: Abdominal location: upper abdomen, unspecified Qualified Code(s): R10.10 - Upper abdominal pain, unspecified Nausea & vomiting Qualifiers: Vomiting type: unspecified Vomiting Intractability: non-intractable Qualified Code(s): R11.2 - Nausea with vomiting, unspecified Disposition: DC-01 TO HOME OR SELFCARE Is pt being admited?: No Does the pt Need Aspirin: No Condition: Stable Instructions: Abdominal Pain (ED), Acute Nausea and Vomiting (ED) Prescriptions: diphenhydrAMINE [Benadryl CAP] 25 mg PO Q8HR PRN #30 capsule PRN Reason: Nausea And Vomiting Dicyclomine [Bentyl] 10 mg PO QID PRN #20 capsule PRN Reason: abdominal spasm Metoclopramide [Reglan] 10 mg PO Q6H PRN #30 tablet PRN Reason: nausea and vomiting traMADol [Ultram] 50 mg PO Q6HR PRN #12 tablet PRN Reason: Pain Referrals: [facility] [Provider Group] - 3-5 Days CRISTIAN MORFIN MD [Staff Physician] - 3-5 Days Forms: Work/School Release Form(ED) Time of Disposition: 20:12
--- NOTE | 2018-08-08 19:42 | Cat Scan Report ---
PROCEDURE: CT abdomen and pelvis with contrast. TECHNIQUE: Computerized axial tomography of the abdomen and pelvis was performed after the IV inject ion of iodinated nonionic contrast. CT DOSE LENGTH PRODUCT: 1303.7 mGycm HISTORY: Diffuse abdominal pain. COMPARISONS: CT abdomen and pelvis 06/14/2018. Dictation not available. FINDINGS: The lung bases are clear. There are no pleural effusions. The heart size is normal. The liver and spl een appear normal. There are multiple calcifications throughout the pancreas. This suggests previous pancreatitis. The gallbladder is present. There is no biliary dilatation. The adrenal glands are not enlarged. Both kidneys appear normal in size and configuration. The abdominal aorta has a normal izabela shikha. There is no retroperitoneal adenopathy. The unopacified gastrointestinal tract is unremarkable. A normal appendix is visible. The bladder, seminal vesicles and prostate appear normal. The regional skeleton appears intact. IMPRESSION: Multiple pancreatic calcifications suggesting previous chronic pancreatitis. No evidence of acute disease in the abdomen or pelvis. This document is electronically signed by Aquiles Maza MD., Aug 08 2018 07:40:31 PM ET
[2018-08-08] MEDS ORDERED: MORPHINE IV ONE (20:04)
== END 2018-08-08 21:00 | disposition home or self-care (01) ==
LOC: ED 16:22
DX: R10.12 Left upper quadrant pain (principal); R11.2 Nausea with vomiting, unspecified
CPT/HCPCS: 36415; 74177; 80053; 81001; 83690; 85025; 96361; 96372; 96374; 96375; 96376; 99284; J0500; J1885; J2270; J2405; J7030; Q9967

== ENCOUNTER 2018-10-09 21:47 | Emergency (ER) | payer OTHER ==
[2018-10-09 22:52] LABS: Eosinophils # (Auto) 0.1 K/mm3 (0.0-0.4); Eosinophils % (Auto) 2.5 % (0.0-4.3); Hematocrit 41.3 % (35.5-45.6); Hemoglobin 14.2 gm/dl (11.8-15.2); Lymphocytes # (Auto) 1.6 K/mm3 (1.2-5.4); Lymphocytes % (Auto) 26.5 % (13.4-35.0); Mean Corpuscular HGB Conc 34 % (32-34); Mean Corpuscular Volume 88 fl (84-94); Monocytes # (Auto) 0.4 K/mm3 (0.0-0.8); Monocytes % (Auto) 6.3 % (0.0-7.3); Platelet Count 184 K/mm3 (140-440); Red Blood Count 4.71 M/mm3 (3.65-5.03); Red Cell Distribution Width 14.5 % (13.2-15.2)
[2018-10-09 22:53] LABS: Basophils % (Auto) 0.3 % (0.0-1.8)
[2018-10-09 23:26] LABS: Alanine Aminotransferase 27 units/L (7-56); Albumin 4.7 g/dL (3.9-5); BUN/Creatinine Ratio 21; Blood Urea Nitrogen 21 mg/dL (9-20); Calcium 9.7 mg/dL (8.4-10.2); Hemolysis Index 22
[2018-10-10] MEDS ORDERED: ZOFRAN IV STA (00:55)
[2018-10-10] MEDS ORDERED: TORADOL IV STA (00:55)
[2018-10-10] MEDS ORDERED: NACL 0.9% 1000 ML 1,000 ML IV ONE (00:55)
[2018-10-10] MEDS ORDERED: TORADOL ONE (01:01)
[2018-10-10 01:42] LABS: Bilirubin,Urine NEG (Negative); Blood,Urine NEG (Negative); Color,Urine Yellow (Yellow); Protein,Urine <15 mg/dL mg/dL (Negative); RBC,Urine < 1.0 /HPF (0.0-6.0); Urobilinogen,Urine < 2.0 mg/dL (<2.0)
--- NOTE | 2018-10-10 01:57 | Emergency Department Report ---
ED Abdominal Pain HPI - General Chief Complaint: Abdominal Pain Stated Complaint: HEADACHE/ABD PAIN Time Seen by Provider: 10/10/18 00:40 Source: patient Mode of arrival: Ambulatory Limitations: No Limitations - History of Present Illness Initial Comments: 28-year-old -Citizen Of [place] male with past medical history of chronic pancreatitis presents emergency department complaining of nausea, dry heaving, and at abdominal pain that worsens with food and drink for the last 2 days. Reports no diarrhea. States he taken his last alcoholic drink 4 months ago. Denies any hemoptysis, hematemesis, hematochezia, fever, chills, sweats. MD Complaint: abdominal pain Location: LUQ, epigastric Migration to: no migration Severity: mild Severity scale (0 -10): 4 Improves With: nothing Worsens With: eating Associated Symptoms: denies: vomiting, diarrhea, constipation, dysuria, anorexia, syncope - Related Data Home Medications Medication Instructions Recorded Confirmed Last Taken Biktarvy 50-200-25 mg (Nf) 1 tab PO DAILY 06/09/18 06/14/18 06/13/18 08:00 Previous Rx's Medication Instructions Recorded Last Taken Type Lisinopril [Zestril] 20 mg PO DAILY #30 tablet 03/16/18 Unknown Rx ALPRAZolam 1 mg PO BID PRN #56 06/11/18 Unknown Rx Hydromorphone HCl [Dilaudid] 4 mg PO Q12H PRN #20 tablet 06/11/18 Unknown Rx Lipase/Protease/Amylase [Creon Dr 6 each PO AC 30 Days capsule 06/11/18 Unknown Rx 12,000 Units] Lunesta 1 mg PO HS #15 06/11/18 Unknown Rx Dicyclomine [Bentyl] 10 mg PO TID #30 capsule 06/22/18 Unknown Rx Ondansetron [Zofran ODT TAB] 8 mg PO Q12HR #30 tab.rapdis 06/22/18 Unknown Rx Dicyclomine [Bentyl] 10 mg PO QID PRN #20 capsule 08/08/18 Unknown Rx Metoclopramide [Reglan] 10 mg PO Q6H PRN #30 tablet 08/08/18 Unknown Rx diphenhydrAMINE [Benadryl CAP] 25 mg PO Q8HR PRN #30 capsule 08/08/18 Unknown Rx traMADol [Ultram] 50 mg PO Q6HR PRN #12 tablet 08/08/18 Unknown Rx Allergies Allergy/AdvReac Type Severity Reaction Status Date / Time No Known Allergies Allergy Verified 08/08/18 16:25 ED Review of Systems ROS: Stated complaint: HEADACHE/ABD PAIN Other details as noted in HPI Comment: All other systems reviewed and negative ED Past Medical Hx - Past Medical History Previous Medical History?: Yes Hx Hypertension: Yes Hx Congestive Heart Failure: No Hx Diabetes: No Hx Asthma: No Hx COPD: No Hx HIV: Yes Additional medical history: pancreatitis. Crohn's - Surgical History Past Surgical History?: No Hx Coronary Stent: No Hx Open Heart Surgery: No Hx Pacemaker: No Hx Internal Defibrillator: No Hx Cholecystectomy: No Hx Appendectomy: No Hx Breast Surgery: No - Social History Smoking Status: Current Some Day Smoker Substance Use Type: None - Medications Home Medications: Home Medications Medication Instructions Recorded Confirmed Last Taken Type Lisinopril [Zestril] 20 mg PO DAILY #30 tablet 03/16/18 06/14/18 Unknown Rx Biktarvy 50-200-25 mg (Nf) 1 tab PO DAILY 06/09/18 06/14/18 06/13/18 08:00 History ALPRAZolam 1 mg PO BID PRN #56 06/11/18 06/14/18 Unknown Rx Hydromorphone HCl [Dilaudid] 4 mg PO Q12H PRN #20 tablet 06/11/18 06/14/18 Unknown Rx Lipase/Protease/Amylase [Creon Dr 6 each PO AC 30 Days capsule 06/11/18 06/14/18 Unknown Rx 12,000 Units] Lunesta 1 mg PO HS #15 06/11/18 06/14/18 Unknown Rx Dicyclomine [Bentyl] 10 mg PO TID #30 capsule 06/22/18 Unknown Rx Ondansetron [Zofran ODT TAB] 8 mg PO Q12HR #30 tab.rapdis 06/22/18 Unknown Rx Dicyclomine [Bentyl] 10 mg PO QID PRN #20 capsule 08/08/18 Unknown Rx Metoclopramide [Reglan] 10 mg PO Q6H PRN #30 tablet 08/08/18 Unknown Rx diphenhydrAMINE [Benadryl CAP] 25 mg PO Q8HR PRN #30 capsule 08/08/18 Unknown Rx traMADol [Ultram] 50 mg PO Q6HR PRN #12 tablet 08/08/18 Unknown Rx ED Physical Exam - General Limitations: No Limitations General appearance: alert, in no apparent distress - Head Head exam: Present: atraumatic, normocephalic - Eye Eye exam: Present: normal appearance, PERRL Pupils: Present: normal accommodation - ENT ENT exam: Present: normal exam, mucous membranes moist - Neck Neck exam: Present: normal inspection - Respiratory Respiratory exam: Present: normal lung sounds bilaterally. Absent: respiratory distress - Cardiovascular Cardiovascular Exam: Present: regular rate, normal rhythm. Absent: systolic murmur, diastolic murmur, rubs, gallop - GI/Abdominal GI/Abdominal exam: Present: soft, tenderness (tenderness to epigastric region a nd the level quadrant, soft), normal bowel sounds. Absent: rebound, rigid, hypoactive bowel sounds, organomegaly, mass, bruit - Rectal Rectal exam: Present: deferred - Extremities Exam Extremities exam: Present: normal inspection - Back Exam Back exam: Present: normal inspection - Neurological Exam Neurological exam: Present: alert, oriented X3 - Psychiatric Psychiatric exam: Present: normal affect, normal mood - Skin Skin exam: Present: warm, dry, intact, normal color. Absent: rash ED Course Vital Signs 10/09/18 21:52 Temperature 98.2 F Pulse Rate 106 H Respiratory 18 Rate Blood Pressure 142/106 O2 Sat by Pulse 97 Oximetry ED Medical Decision Making - Lab Data Result diagrams: 10/09/18 22:25 10/09/18 22:28 - Medical Decision Making 28-year-old Citizen Of [place] male with chronic pancreatitis. Lipase is currently significant in the 170s not quite 3 times a day limit of normal. He states that he has some mild nausea but no fever, no hemoptysis. Juan David criteria. Otherwise, he will with the exception of LDH. Discussed the need for a CT scan. He decided to leave AGAINST MEDICAL ADVICE as he stated he felt better after receiving some fluids Critical care attestation.: If time is entered above; I have spent that time in minutes in the direct care of this critically ill patient, excluding procedure time. ED Disposition Clinical Impression: Acute pancreatitis Disposition: LEFT AGAINST MED ADVICE Is pt being admited?: No Does the pt Need Aspirin: No Condition: Undetermined Referrals: ARTEM MORGAN [Primary Care Provider] - 3-5 Days Forms: AMA Form
[2018-10-10 01:58] VITALS: BP 132/98
[2018-10-10 02:11] LABS: WBC,Urine < 1.0 /HPF (0.0-6.0)
== END 2018-10-10 01:49 | disposition left against medical advice (07) ==
LOC: ED 21:47
DX: K85.90 Acute pancreatitis without necrosis or infection, unspecified (principal)
CPT/HCPCS: 36415; 80053; 81001; 83690; 85025; 96374; 96375; 99285; J1885; J2405; J7030

== ENCOUNTER 2018-11-10 14:55 | Emergency (ER) | payer OTHER ==
[2018-11-10 15:06] VITALS: BP 130/100
[2018-11-10] MEDS ORDERED: NACL 0.9% 500 ML 500 ML IV ONE (15:07)
--- NOTE | 2018-11-10 15:07 | Event Note ---
ED Screening Note ED Screening Note: fever 102 took motrin tylenol and advil today middle and LUQ add pain nausea dry heaves not able to keep food down rx trimek for HIV PMH HIV 2 m ago CD4 16; dx 2015 chronic pancreatitis; frequent flare ups cig psh none This initial assessment/diagnostic orders/clinical plan/treatment(s) is/are subject to change based on patients health status, clinical progression and re- assessment by fellow clinical providers in the ED. Further treatment and workup at subsequent clinical providers discretion. Patient/guardian urged not to elope from the ED as their condition may be serious if not clinically assessed and managed. Initial orders include: labs/urine
--- NOTE | 2018-11-10 15:40 | XRay Report ---
CHEST 1 VIEW INDICATION: possible Sepsis. COMPARISON: None FINDINGS: Support devices: None. Heart: Within normal limits. Lungs/Pleura: No acute air space or interstitial disease. Additional findings: None. IMPRESSION: No acute findings. Signer Name: Chema Gilliam Jr, MD Signed: 11/10/2018 3:36 PM Workstation Name: [id number]
[2018-11-10 16:05] LABS: Basophils % (Auto) 0.3 % (0.0-1.8); Eosinophils # (Auto) 0.1 K/mm3 (0.0-0.4); Eosinophils % (Auto) 2.5 % (0.0-4.3); Hematocrit 41.3 % (35.5-45.6); Hemoglobin 14.2 gm/dl (11.8-15.2); Lymphocytes # (Auto) 1.5 K/mm3 (1.2-5.4); Lymphocytes % (Auto) 28.6 % (13.4-35.0); Mean Corpuscular HGB Conc 34 % (32-34); Mean Corpuscular Volume 87 fl (84-94); Monocytes # (Auto) 0.4 K/mm3 (0.0-0.8); Monocytes % (Auto) 6.9 % (0.0-7.3); Platelet Count 186 K/mm3 (140-440); Red Blood Count 4.75 M/mm3 (3.65-5.03); Red Cell Distribution Width 14.5 % (13.2-15.2)
[2018-11-10 16:30] LABS: Albumin 4.5 g/dL (3.9-5); BUN/Creatinine Ratio 15; Blood Urea Nitrogen 15 mg/dL (9-20); Calcium 9.9 mg/dL (8.4-10.2); Hemolysis Index 137
[2018-11-10 16:32] LABS: Bilirubin,Urine NEG (Negative); Blood,Urine NEG (Negative); Color,Urine Yellow (Yellow); Mucus,Urine 2+ /HPF; Protein,Urine <15 mg/dL mg/dL (Negative); Urobilinogen,Urine < 2.0 mg/dL (<2.0)
[2018-11-10 17:13] LABS: Alanine Aminotransferase 32 units/L (7-56)
[2018-11-10] MEDS ORDERED: TORADOL IV STA (18:49)
[2018-11-10] MEDS ORDERED: ZOFRAN IV STA (18:49)
[2018-11-10] MEDS ORDERED: NACL 0.9% 1000 ML 1,000 ML IV ONE (18:49)
--- NOTE | 2018-11-10 19:16 | Emergency Department Report ---
<ANA PALUMBO - Last Filed: 11/10/18 19:13> ED Abdominal Pain HPI - General Chief Complaint: Abdominal Pain Stated Complaint: SEVERE ABD PAIN/PANCREATITIS Time Seen by Provider: 11/10/18 15:04 Source: patient Mode of arrival: Ambulatory Limitations: No Limitations - History of Present Illness Initial Comments: 28-year-old -[place] male with past medical history of HIV, hypertension, chronic recurrent pancreatitis and reported crowns present. She department complaining of a reemergence of it is epigastric pain which radiates to the right and left upper quadrant. He denies any illicit factors to trigger his reported pancreatic symptoms. He denies any EtOH. Last month. He was hospitalized at [facility] for similar symptoms and was found to have pancreatitis at that time was on time. He did receive fluids and pain pain medications until his symptoms didn't resolve. There is no vomiting, hemopt ysis, hematemesis, hematochezia, fever, chills, sweats, but pain does come in waves and a steady waxing and waning fashion. He reports normal bowel movements and urinalysis. Location: epigastric Radiation: epigastric Migration to: no migration Severity: mild Quality: sharp Consistency: intermittent Improves With: nothing Worsens With: nothing Associated Symptoms: denies: dysuria, hematemesis, hematuria, anorexia - Related Data Home Medications Medication Instructions Recorded Confirmed Last Taken Biktarvy 50-200-25 mg (Nf) 1 tab PO DAILY 06/09/18 06/14/18 06/13/18 08:00 Previous Rx's Medication Instructions Recorded Last Taken Type Lisinopril [Zestril] 20 mg PO DAILY #30 tablet 03/16/18 Unknown Rx ALPRAZolam 1 mg PO BID PRN #56 06/11/18 Unknown Rx Hydromorphone HCl [Dilaudid] 4 mg PO Q12H PRN #20 tablet 06/11/18 Unknown Rx Lipase/Protease/Amylase [Creon Dr 6 each PO AC 30 Days capsule 06/11/18 Unknown Rx 12,000 Units] Lunesta 1 mg PO HS #15 06/11/18 Unknown Rx Dicyclomine [Bentyl] 10 mg PO TID #30 capsule 06/22/18 Unknown Rx Ondansetron [Zofran ODT TAB] 8 mg PO Q12HR #30 tab.rapdis 06/22/18 Unknown Rx Dicyclomine [Bentyl] 10 mg PO QID PRN #20 capsule 08/08/18 Unknown Rx Metoclopramide [Reglan] 10 mg PO Q6H PRN #30 tablet 08/08/18 Unknown Rx diphenhydrAMINE [Benadryl CAP] 25 mg PO Q8HR PRN #30 capsule 08/08/18 Unknown Rx traMADol [Ultram] 50 mg PO Q6HR PRN #12 tablet 08/08/18 Unknown Rx Allergies Allergy/AdvReac Type Severity Reaction Status Date / Time No Known Allergies Allergy Verified 08/08/18 16:25 ED Review of Systems Comment: All other systems reviewed and negative ED Past Medical Hx - Past Medical History Previous Medical History?: Yes Hx Hypertension: Yes Hx Congestive Heart Failure: No Hx Diabetes: No Hx Asthma: No Hx COPD: No Hx HIV: Yes Additional medical history: pancreatitis. Crohn's - Surgical History Past Surgical History?: No Hx Coronary Stent: No Hx Open Heart Surgery: No Hx Pacemaker: No Hx Internal Defibrillator: No Hx Cholecystectomy: No Hx Appendectomy: No Hx Breast Surgery: No - Social History Smoking Status: Current Every Day Smoker Substance Use Type: None - Medications Home Medications: Home Medications Medication Instructions Recorded Confirmed Last Taken Type Lisinopril [Zestril] 20 mg PO DAILY #30 tablet 03/16/18 06/14/18 Unknown Rx Biktarvy 50-200-25 mg (Nf) 1 tab PO DAILY 06/09/18 06/14/18 06/13/18 08:00 History ALPRAZolam 1 mg PO BID PRN #56 06/11/18 06/14/18 Unknown Rx Hydromorphone HCl [Dilaudid] 4 mg PO Q12H PRN #20 tablet 06/11/18 06/14/18 Unknown Rx Lipase/Protease/Amylase [Taylor Mueller 6 each PO AC 30 Days capsule 06/11/18 06/14/18 Unknown Rx 12,000 Units] Lunesta 1 mg PO HS #15 06/11/18 06/14/18 Unknown Rx Dicyclomine [Bentyl] 10 mg PO TID #30 capsule 06/22/18 Unknown Rx Ondansetron [Zofran ODT TAB] 8 mg PO Q12HR #30 tab.rapdis 06/22/18 Unknown Rx Dicyclomine [Bentyl] 10 mg PO QID PRN #20 capsule 08/08/18 Unknown Rx Metoclopramide [Reglan] 10 mg PO Q6H PRN #30 tablet 08/08/18 Unknown Rx diphenhydrAMINE [Benadryl CAP] 25 mg PO Q8HR PRN #30 capsule 08/08/18 Unknown Rx traMADol [Ultram] 50 mg PO Q6HR PRN #12 tablet 08/08/18 Unknown Rx ED Physical Exam - General Limitations: No Limitations General appearance: alert, in no apparent distress - Head Head exam: Present: atraumatic, normocephalic - Eye Eye exam: Present: normal appearance - ENT ENT exam: Present: mucous membranes moist - Neck Neck exam: Present: normal inspection - Respiratory Respiratory exam: Present: normal lung sounds bilaterally. Absent: respiratory distress - Cardiovascular Cardiovascular Exam: Present: regular rate, normal rhythm. Absent: systolic murmur, diastolic murmur, rubs, gallop - GI/Abdominal GI/Abdominal exam: Present: soft, tenderness (medical quadrant and the right upper quadrant with palpation. No tenderness to McBurney's, no colon sign, no Colón Zamora, no Rovsing. Abdomen is not distended. Does not have a surgical abdomen), normal bowel sounds. Absent: hyperactive bowel sounds, hypoactive bowel sounds, organomegaly - Rectal Rectal exam: Present: deferred - Extremities Exam Extremities exam: Present: normal inspection - Back Exam Back exam: Present: normal inspection - Neurological Exam Neurological exam: Present: alert, oriented X3 - Psychiatric Psychiatric exam: Present: normal affect, normal mood - Skin Skin exam: Present: warm, dry, intact, normal color. Absent: rash ED Medical Decision Making - Lab Data Result diagrams: 11/10/18 15:34 11/10/18 15:34 - Medical Decision Making 28-year-old male patient with HIV epigastric pain with the initial normal labs. However, he has a history of chronic pancreatitis. However, lipase was not added from the initial triage. We'll add a lipase and move forward the CT scan of his head, abdomen and pelvis to ensure that noninfectious processes, obstructive processes, pancreatic processes are present. Pelvic conditions will be made once the receipt of this information has been obtained. Also for fluids and pain medication and will complement bowel rest until further notice. If CT scan is normal and lipase is normal for with the GI cocktail and reevaluate patient at that time. Patient will be followed by Chandra Starr for the disposition ED Disposition Clinical Impression: Abdominal pain Qualifiers: Abdominal location: generalized Qualified Code(s): R10.84 - Generalized abdominal pain Disposition: Z-07 ELOPED Condition: Stable Instructions: Abdominal Pain (ED) Referrals: ARTEM NEWELL MD [Primary Care Provider] - 3-5 Days <CHANDRA ALEGRE - Last Filed: 11/10/18 21:49> ED Review of Systems ROS: Stated complaint: SEVERE ABD PAIN/PANCREATITIS Other details as noted in HPI ED Course Vital Signs 11/10/18 11/10/18 15:05 19:10 Temperature 98.5 F Pulse Rate 84 Respiratory 18 18 Rate Blood Pressure 130/100 O2 Sat by Pulse 98 98 Oximetry ED Medical Decision Making - Lab Data Result diagrams: 11/10/18 15:34 11/10/18 15:34 Labs 11/10/18 11/10/18 11/10/18 15:34 15:34 15:34 WBC 5.4 RBC 4.75 Hgb 14.2 Hct 41.3 MCV 87 MCH 30 MCHC 34 RDW 14.5 Plt Count 186 Lymph % (Auto) 28.6 [place] % (Auto) 6.9 Eos % (Auto) 2.5 Baso % (Auto) 0.3 Lymph # 1.5 [place] # 0.4 Eos # 0.1 Baso # 0.0 Seg Neutrophils % 61.7 Seg Neutrophils # 3.3 PT 12.9 INR 1.00 VBG pH Sodium 138 Potassium 4.3 Chloride 101.8 Carbon Dioxide 22 Anion Gap 19 BUN 15 Creatinine 1.0 Estimated GFR > 60 BUN/Creatinine Ratio 15 Glucose 91 Lactic Acid Calcium 9.9 Total Bilirubin 0.60 AST 40 ALT 32 Alkaline Phosphatase 55 Total Protein 8.1 Albumin 4.5 Albumin/Globulin Ratio 1.3 Lipase Urine Color Urine Turbidity Urine pH Ur Specific [place] Urine Protein Urine Glucose (UA) Urine Ketones Urine Blood Urine Nitrite Urine Bilirubin Urine Urobilinogen Ur Leukocyte Esterase Urine WBC (Auto) Urine RBC (Auto) U Epithel Cells (Auto) Urine Mucus 11/10/18 11/10/18 11/10/18 15:34 15:34 16:02 WBC RBC Hgb Hct MCV MCH MCHC RDW Plt Count Lymph % (Auto) [place] % (Auto) Eos % (Auto) Baso % (Auto) Lymph # [place] # Eos # Baso # Seg Neutrophils % Seg Neutrophils # PT INR VBG pH 7.433 H Sodium Potassium Chloride Carbon Dioxide Anion Gap BUN Creatinine Estimated GFR BUN/Creatinine Ratio Glucose Lactic Acid 1.10 Calcium Total Bilirubin AST ALT Alkaline Phosphatase Total Protein Albumin Albumin/Globulin Ratio Lipase Urine Color Yellow Urine Turbidity Clear Urine pH 7.0 Ur Specific [place] 1.024 Urine Protein <15 mg/dl Urine Glucose (UA) Neg Urine Ketones Neg Urine Blood Neg Urine Nitrite Neg Urine Bilirubin Neg Urine Urobilinogen < 2.0 Ur Leukocyte Esterase Neg Urine WBC (Auto) 1.0 Urine RBC (Auto) 1.0 U Epithel Cells (Auto) < 1.0 Urine Mucus 2+ 11/10/18 11/10/18 17:51 19:05 WBC RBC Hgb Hct MCV MCH MCHC RDW Plt Count Lymph % (Auto) [place] % (Auto) Eos % (Auto) Baso % (Auto) Lymph # [place] # Eos # Baso # Seg Neutrophils % Seg Neutrophils # PT INR VBG pH Sodium Potassium Chloride Carbon Dioxide Anion Gap BUN Creatinine Estimated GFR BUN/Creatinine Ratio Glucose Lactic Acid 1.10 Calcium Total Bilirubin AST ALT Alkaline Phosphatase Total Protein Albumin Albumin/Globulin Ratio Lipase 173 H Urine Color Urine Turbidity Urine pH Ur Specific [place] Urine Protein Urine Glucose (UA) Urine Ketones Urine Blood Urine Nitrite Urine Bilirubin Urine Urobilinogen Ur Leukocyte Esterase Urine WBC (Auto) Urine RBC (Auto) U Epithel Cells (Auto) Urine Mucus - Radiology Data Radiology results: report reviewed, image reviewed Ordering Physician: SCOTT GUIDRY Date of Service: 11/10/18 Procedure(s): XR chest 1V ap Accession Number(s): [id number] cc: SCOTT GUIDRY Fluoro Time In Minutes: CHEST 1 VIEW INDICATION: possible Sepsis. COMPARISON: None FINDINGS: Support devices: None. Heart: Within normal limits. Lungs/Pleura: No acute air space or interstitial disease. Additional findings: None. IMPRESSION: No acute findings. Signer Name: Chema Gilliam Jr, MD Signed: 11/10/2018 3:36 PM Workstation Name: [id number] Transcribed By: TTR Dictated By: CHEMA GILLIAM JR, MD Electronically Authenticated By: CHEMA GILLIAM JR, MD Signed Date/Time: 11/10/18 1536 - Medical Decision Making pt eloped prior to completion of evaluation, labs, and diagnostic studies. did not answer phone x 3 attempts. Critical care attestation.: If time is entered above; I have spent that time in minutes in the direct care of this critically ill patient, excluding procedure time. ED Disposition Is pt being admited?: No Does the pt Need Aspirin: No Time of Disposition: 21:49
== END 2018-11-10 19:35 | disposition left against medical advice (07) ==
LOC: ED 14:55
DX: R10.84 Generalized abdominal pain (principal); I10 Essential (primary) hypertension; F17.200 Nicotine dependence, unspecified, uncomplicated; Z79.899 Other long term (current) drug therapy
CPT/HCPCS: 36415; 71045; 80053; 81001; 82140; 82805; 83690; 85025; 85610; 87040; 87086; 96374; 96375; 99284; J1885; J2405; J7030

== ENCOUNTER 2018-11-17 12:44 | Emergency (ER) | payer OTHER ==
[2018-11-17] MEDS ORDERED: XYLOCAINE 1% 20 mL ONE (13:25)
[2018-11-17] MEDS ORDERED: NACL 0.9% 1000 ML IV ONE (13:40)
[2018-11-17] MEDS ORDERED: NACL 0.9% 1000 ML 1,000 ML ONE (13:46)
[2018-11-17] MEDS ORDERED: TYLENOL ONE (13:49)
[2018-11-17] MEDS ORDERED: TYLENOL PO ONE (13:50)
[2018-11-17] MEDS ORDERED: ZOFRAN IV ONE (13:50)
[2018-11-17] MEDS ORDERED: BENADRYL IV ONE (13:51)
[2018-11-17 13:55] LABS: Basophils % (Auto) 0.3 % (0.0-1.8); Eosinophils # (Auto) 0.1 K/mm3 (0.0-0.4); Eosinophils % (Auto) 1.5 % (0.0-4.3); Lymphocytes # (Auto) 1.5 K/mm3 (1.2-5.4); Lymphocytes % (Auto) 15.3 % (13.4-35.0); Mean Corpuscular HGB Conc 34 % (32-34); Mean Corpuscular Volume 86 fl (84-94); Monocytes # (Auto) 0.8 K/mm3 (0.0-0.8); Monocytes % (Auto) 8.2 % (0.0-7.3); Red Blood Count 3.55 M/mm3 (3.65-5.03); Red Cell Distribution Width 13.8 % (13.2-15.2)
[2018-11-17] MEDS ORDERED: VANCOMYCIN PHARMACY TO DOSE IV SCH (14:00)
--- NOTE | 2018-11-17 14:06 | Emergency Department Report ---
ED General Adult HPI - General Chief complaint: Fever Stated complaint: SEPSIS Time Seen by Provider: 11/17/18 13:39 Source: EMS Mode of arrival: Stretcher Limitations: No Limitations - History of Present Illness Initial comments: 28-year-old male was brought back initially before my encounter as a "code sepsis". He is mildly tachycardic. He had just been seen at [facility] he states. The nurses noted that he had multiple sticks in bilateral forearms. He states that these were attempted venipuncture sites at [facility]. He states he was told he had "sepsis" and "pancreatitis". He left AGAINST MEDICAL ADVICE. He states that they did not offer him a central axis catheter. He states he has had to have these before. Nurses did not feel they could successfully gain access so they requested that I check him for an EJ which was really not available. Therefore I obtained verbal consent to place central line. This was performed without difficulty. The patient is very emotionally labile and not giving a great history at this point. He states that he is never been treated for serious infection other than his HIV which he takes medication for. He did tell me he had a history of pneumonia in the past and he has been coughing recently. He is noted to have a pulse oximetry of 90. He also states he's been having some diffuse abdominal pain but he complains of left forearm pain related to recent punctures more. Both his forearms are really quite swollen and erythematous. He thinks he has had fever and possibly chills. -: Gradual, days(s) Location: abdomen (3 days), upper extremity Radiation: non-radiation Severity scale (0 -10): 10 Quality: aching Consistency: intermittent Improves with: none Worsens with: none Associated Symptoms: fever/chills - Related Data Home Medications Medication Instructions Recorded Confirmed Last Taken Biktarvy 50-200-25 mg (Nf) 1 tab PO DAILY 06/09/18 06/14/18 06/13/18 08:00 Previous Rx's Medication Instructions Recorded Last Taken Type Lisinopril [Zestril] 20 mg PO DAILY #30 tablet 03/16/18 Unknown Rx Hydromorphone HCl [Dilaudid] 4 mg PO Q12H PRN #20 tablet 06/11/18 Unknown Rx Lunesta 1 mg PO HS #15 06/11/18 Unknown Rx Ondansetron [Zofran ODT TAB] 8 mg PO Q12HR #30 tab.rapdis 06/22/18 Unknown Rx Allergies Allergy/AdvReac Type Severity Reaction Status Date / Time No Known Allergies Allergy Verified 08/08/18 16:25 ED Review of Systems ROS: Stated complaint: SEPSIS Other details as noted in HPI Constitutional: chills, fever Eyes: denies: eye pain, eye discharge, vision change ENT: denies: ear pain, throat pain Respiratory: cough. denies: shortness of breath, wheezing Cardiovascular: denies: chest pain, palpitations Endocrine: no symptoms reported Gastrointestinal: abdominal pain. denies: nausea, vomiting, diarrhea Genitourinary: denies: urgency, dysuria Musculoskeletal: denies: back pain, joint swelling, arthralgia Skin: denies: rash, lesions Neurological: denies: headache, weakness, paresthesias Psychiatric: denies: anxiety, depression Hematological/Lymphatic: denies: easy bleeding, easy bruising ED Past Medical Hx - Past Medical History Previous Medical History?: Yes Hx Hypertension: Yes Hx Congestive Heart Failure: No Hx Diabetes: No Hx Asthma: No Hx COPD: No Hx HIV: Yes Additional medical history: pancreatitis. Crohn's - Surgical History Past Surgical History?: No Hx Coronary Stent: No Hx Open Heart Surgery: No Hx Pacemaker: No Hx Internal Defibrillator: No Hx Cholecystectomy: No Hx Appendectomy: No Hx Breast Surgery: No - Social History Smoking Status: Current Some Day Smoker Substance Use Type: None - Medications Home Medications: Home Medications Medication Instructions Recorded Confirmed Last Taken Type Lisinopril [Zestril] 20 mg PO DAILY #30 tablet 03/16/18 06/14/18 Unknown Rx Biktarvy 50-200-25 mg (Nf) 1 tab PO DAILY 06/09/18 06/14/18 06/13/18 08:00 History Hydromorphone HCl [Dilaudid] 4 mg PO Q12H PRN #20 tablet 06/11/18 06/14/18 Unknown Rx Lunesta 1 mg PO HS #15 06/11/18 06/14/18 Unknown Rx Ondansetron [Zofran ODT TAB] 8 mg PO Q12HR #30 tab.rapdis 06/22/18 Unknown Rx ED Physical Exam - General Limitations: Other (very anxious) General appearance: anxious - Head Head exam: Present: atraumatic, normocephalic - Eye Eye exam: Present: normal appearance, PERRL, EOMI. Absent: scleral icterus - ENT ENT exam: Present: mucous membranes dry - Neck Neck exam: Present: normal inspection. Absent: tenderness, meningismus - Respiratory Respiratory exam: Present: normal lung sounds bilaterally. Absent: respiratory distress - Cardiovascular Cardiovascular Exam: Present: normal rhythm, tachycardia. Absent: systolic murm ur, diastolic murmur, rubs, gallop - GI/Abdominal GI/Abdominal exam: Present: soft, normal bowel sounds. Absent: distended, tenderness, guarding, rebound, rigid - Rectal Rectal exam: Present: deferred - Extremities Exam Extremities exam: Present: normal inspection - Back Exam Back exam: Present: normal inspection - Neurological Exam Neurological exam: Present: alert, oriented X3, CN II-XII intact. Absent: motor sensory deficit - Psychiatric Psychiatric exam: Present: agitated (mildly), anxious - Skin Skin exam: Present: warm, dry, intact, normal color. Absent: rash ED Course Vital Signs 11/17/18 11/17/18 11/17/18 12:54 13:00 13:03 Temperature 103.2 F H Pulse Rate 129 H 128 H 130 H Respiratory 23 15 17 Rate Blood Pressure 147/86 140/93 Blood Pressure 140/93 [Left] O2 Sat by Pulse 91 93 95 Oximetry 11/17/18 11/17/18 13:31 14:00 Temperature Pulse Rate 117 H Respiratory 40 H Rate Blood Pressure 147/86 136/91 Blood Pressure [Left] O2 Sat by Pulse 100 95 Oximetry - Central Line Placement Right IJ Consent Obtained: verbal consent Time Out Performed: Yes Patient Placed on Monitor/Pulse Ox: Yes MD Prep: mask, gown, gloves, other Central Line Prep: Chlorhexidine scrub Local Anesthesia Used: Lidocaine 1% Amount of Anesthesia Used (mls): 6 Ultrasound Used for Placement: No Central Line Lumen Inserted: triple Bloods Obtained for Lab: Yes Central Line Position: good blood return (venous nonpulsatile), all ports aspirated, flus, sutured in place with 3-0 Dressing Applied: Tegaderm Post Procedure X-Ray: tip of catheter in good p Patient Tolerated Procedure: well, no complications Complications: none ED Medical Decision Making - Lab Data Result diagrams: 11/17/18 13:30 11/17/18 13:30 Laboratory Results - last 24 hr 11/17/18 11/17/18 11/17/18 13:30 13:30 13:30 [place] % (Auto) 8.2 H Eos % (Auto) 1.5 [place] # 0.8 Eos # 0.1 Baso # 0.0 Seg Neutrophils % 74.7 H Seg Neutrophils # 7.4 APTT Lactic Acid 0.80 Magnesium Troponin T 0.016 NT-Pro-B Natriuret Pep Lipase 11/17/18 11/17/18 11/17/18 13:30 13:30 13:30 [place] % (Auto) Eos % (Auto) [place] # Eos # Baso # Seg Neutrophils % Seg Neutrophils # APTT 20.0 L Lactic Acid Magnesium 1.60 L Troponin T NT-Pro-B Natriuret Pep 5570 H Lipase 26 - Radiology Data Radiology results: image reviewed (good line placement. No acute cardiac or pulmonary pathology noted) Critical care attestation.: If time is entered above; I have spent that time in minutes in the direct care of this critically ill patient, excluding procedure time. ED Disposition Clinical Impression: Cellulitis of forearm, HIV positive, Hypomagnesemia, Hypokalemia Sepsis Qualifiers: Sepsis type: sepsis due to unspecified organism Sepsis acute organ dysfunction status: without acute organ dysfunction Qualified Code(s): A41.9 - Sepsis, unspecified organism Disposition: OP ADMIT IP TO THIS HOSP Is pt being admited?: Yes Does the pt Need Aspirin: Yes Condition: Stable Referrals: PRIMARY CARE, [Primary Care Provider] - 3-5 Days Time of Disposition: 14:49
[2018-11-17 14:12] LABS: Platelet Count 96 K/mm3 (140-440)
[2018-11-17 14:15] LABS: Alanine Aminotransferase 19 units/L (7-56); Albumin 3.3 g/dL (3.9-5); BUN/Creatinine Ratio 5; Blood Urea Nitrogen 6 mg/dL (9-20); Calcium 8.6 mg/dL (8.4-10.2); Hemolysis Index 3
[2018-11-17] MEDS: DILAUDID IV PRN ×3 (14:16→18:18)
[2018-11-17 14:18] LABS: Hematocrit 30.7 % (35.5-45.6); Hemoglobin 10.5 gm/dl (11.8-15.2)
[2018-11-17] MEDS ORDERED: VANCOMYCIN 1,750 MG in NACL 0.9% 500 ML 500 ML IV ONE (14:30)
[2018-11-17] MEDS ORDERED: K-DUR PO ONE (14:44)
[2018-11-17] MEDS ORDERED: MAGNESIUM SULFATE 2GM/50ML 2 GM/50 ML BAG IV ONE (14:47)
--- NOTE | 2018-11-17 14:54 | XRay Report ---
CHEST 1 VIEW INDICATION: line placement. COMPARISON: FINDINGS: Support devices: A right IJ venous catheter has been inserted which terminates in the superior right atrium. Heart: Within normal limits. Lungs/Pleura: No acute air space or interstitial disease. Additional findings: None. IMPRESSION: No acute findings. Right IJ central line as described. Signer Name: Chema Gilliam Jr, MD Signed: 11/17/2018 2:50 PM Workstation Name: [id number]
[2018-11-17 15:07] LABS: Basophils % (Auto) 0.4 % (0.0-1.8); Eosinophils # (Auto) 0.2 K/mm3 (0.0-0.4); Eosinophils % (Auto) 1.7 % (0.0-4.3); Hematocrit 28.5 % (35.5-45.6); Hemoglobin 9.9 gm/dl (11.8-15.2); Lymphocytes # (Auto) 1.4 K/mm3 (1.2-5.4); Mean Corpuscular HGB Conc 35 % (32-34); Mean Corpuscular Volume 87 fl (84-94); Monocytes # (Auto) 0.7 K/mm3 (0.0-0.8); Red Blood Count 3.28 M/mm3 (3.65-5.03)
[2018-11-17 15:18] LABS: Platelet Count 83 K/mm3 (140-440)
[2018-11-17 15:21] LABS: Bacteria,Urine 1+ /HPF (Negative); Bilirubin,Urine NEG (Negative); Blood,Urine NEG (Negative); Color,Urine Yellow (Yellow); Mucus,Urine 2+ /HPF
[2018-11-17 18:01] VITALS: BP 144/87
[2018-11-18] MEDS ORDERED: VANCOMYCIN 1,250 MG in NACL 0.9% 250ML 250 ML IV SCH (02:00)
== END 2018-11-17 19:16 | disposition admitted as inpatient to this hospital (09) ==
LOC: ED 12:44
DX: A41.9 Sepsis, unspecified organism (principal); L03.114 Cellulitis of left upper limb; E83.42 Hypomagnesemia; E87.6 Hypokalemia
CPT/HCPCS: 36415; 36556; 71045; 80053; 81001; 82140; 83690; 83735; 83880; 84484; 85025; 85730; 87040; 87086; 93005; 93010; 96361; 96365; 96366; 96368; 96375; 99284; J1170; J1200; J2405; J3370; J3475; J7030; J7040; J7050

== ENCOUNTER 2018-11-18 04:11 | Inpatient (IN) | payer OTHER ==
[2018-11-18] MEDS ORDERED: TYLENOL PO ONE (04:47)
[2018-11-18] MEDS ORDERED: ZOSYN/NS 4.5GM/100ML 4.5 GM/100 ML VIAL IV ONE (07:22)
[2018-11-18] MEDS ORDERED: MORPHINE IV ONE (07:23)
[2018-11-18] MEDS ORDERED: ZOFRAN IV ONE (07:23)
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
[2018-11-18 07:43] LABS: Basophils % (Auto) 0.3 % (0.0-1.8); Eosinophils # (Auto) 0.2 K/mm3 (0.0-0.4); Eosinophils % (Auto) 2.7 % (0.0-4.3); Hematocrit 30.8 % (35.5-45.6); Hemoglobin 10.6 gm/dl (11.8-15.2); Lymphocytes # (Auto) 1.3 K/mm3 (1.2-5.4); Lymphocytes % (Auto) 14.2 % (13.4-35.0); Mean Corpuscular HGB Conc 35 % (32-34); Mean Corpuscular Volume 87 fl (84-94); Monocytes # (Auto) 0.6 K/mm3 (0.0-0.8); Monocytes % (Auto) 6.3 % (0.0-7.3); Red Blood Count 3.56 M/mm3 (3.65-5.03); Red Cell Distribution Width 14.3 % (13.2-15.2)
[2018-11-18 07:47] LABS: Platelet Count 96 K/mm3 (140-440)
[2018-11-18 08:00] LABS: Alanine Aminotransferase 25 units/L (7-56); Albumin 3.1 g/dL (3.9-5); BUN/Creatinine Ratio 5; Blood Urea Nitrogen 5 mg/dL (9-20); Calcium 8.5 mg/dL (8.4-10.2); Hemolysis Index 1
[2018-11-18] MEDS ORDERED: VANCOMYCIN PHARMACY TO DOSE IV SCH (08:00)
[2018-11-18] MEDS ORDERED: VANCOMYCIN 1,750 MG in NACL 0.9% 500 ML 500 ML IV ONE (08:00)
[2018-11-18] MEDS ORDERED: TORADOL IV ONE (08:19)
--- NOTE | 2018-11-18 08:29 | Cat Scan Report ---
CT ABDOMEN AND PELVIS WITHOUT CONTRAST INDICATION: Left abdominal pain and back pain for 3 days. History of pancreatitis. COMPARISON: CT of the abdomen and pelvis with contrast from 08/08/2018. TECHNIQUE: Axial, coronal and sagittal CT imaging of the abdomen and pelvis was performed without co ntrast. Lack of intravenous contrast limits evaluation of the vascular and solid organs. All CT sca ns at this location are performed using CT dose reduction for ALARA by means of automated exposure co ntrol. FINDINGS: LOWER CHEST: Mild dependent atelectasis is noted bilaterally. No additional significant abnormality. LIVER: No significant abnormality. BILIARY: There is a small amount of pericholecystic fluid without visualization of stones, other wall thickening or surrounding inflammation. No biliary ductal dilatation. PANCREAS: Extensive calcifications of the pancreas are consistent with chronic pancreatitis. No signi ficant acute inflammation is noted along the pancreas. There is similar pancreatic ductal dilatation. No suspicious pancreatic lesions are identified. SPLEEN: No significant abnormality. ADRENALS: No significant abnormality. KIDNEYS AND URETERS: No significant abnormality. GI TRACT: No significant abnormality of the stomach, small bowel or colon. Unremarkable appendix. PERITONEUM: No free fluid. No free air. No fluid collection. LYMPH NODES: No significant adenopathy. VASCULATURE: No significant abnormality. URINARY BLADDER: No significant abnormality. REPRODUCTIVE ORGANS: No significant abnormality. ADDITIONAL FINDINGS: None. SKELETAL SYSTEM: No significant abnormality. IMPRESSION: 1. Small amount of pericholecystic fluid without CT evidence of cholelithiasis or additional evidence of acute cholecystitis. Please correlate with the clinical findings. 2. Stable changes of chronic pancreatitis without evidence of acute pancreatitis. Please correlate wi th the clinical findings. Signer Name: Cornell Walters MD Signed: 11/18/2018 8:25 AM Workstation Name: [email or web address]
[2018-11-18] MEDS ORDERED: DILAUDID IV ONE (09:01)
[2018-11-18] MEDS ORDERED: BENADRYL IV ONE (09:04)
[2018-11-18 11:33] LABS: Bilirubin,Urine NEG (Negative); Blood,Urine NEG (Negative); Color,Urine Yellow (Yellow); Mucus,Urine FEW /HPF; Protein,Urine <15 mg/dL mg/dL (Negative)
[2018-11-18] MEDS ORDERED: DILAUDID IV PRN (12:01)
[2018-11-18] MEDS: TYLENOL PO PRN (13:29)
[2018-11-18] MEDS ORDERED: HYDROMORPHONE HCL 4 MG PO PRN (16:24)
[2018-11-18] MEDS ORDERED: K-DUR PO ONE (16:27)
[2018-11-18] MEDS ORDERED: TYLENOL PO PRN (16:28)
[2018-11-18] MEDS ORDERED: PERCOCET 5/325 PO PRN (16:28)
[2018-11-18] MEDS ORDERED: DILAUDID PO PRN (16:37)
[2018-11-18] MEDS: D5NS 1,000 ML IV SCH (17:43)
[2018-11-18] MEDS: ZESTRIL PO SCH (17:43)
[2018-11-18] MEDS: BENADRYL IV PRN (17:44)
[2018-11-18] MEDS: DILAUDID IV PRN ×2 (17:44→21:34)
[2018-11-18] MEDS: MAXIPIME/NS 2 GM/100 ML 2 GM/100 ML BAG IV SCH (18:50)
[2018-11-18] MEDS: VANCOMYCIN/NS 1 GM/250 ML 1 GM/250 ML BAG IV SCH (21:32)
[2018-11-18] MEDS: ZOFRAN ODT PO SCH (21:33)
[2018-11-18] MEDS: PEPCID IV SCH (21:33)
[2018-11-18] MEDS ORDERED: LUNESTA 1 MG PO SCH (22:00)
[2018-11-18] MEDS ORDERED: APRESOLINE IV PRN (22:17)
[2018-11-18] MEDS: AMBIEN PO PRN (23:34)
[2018-11-19] MEDS: MAXIPIME/NS 2 GM/100 ML 2 GM/100 ML BAG IV SCH ×4 (02:40→22:00)
[2018-11-19] MEDS: BENADRYL IV PRN ×4 (02:42→21:59)
[2018-11-19] MEDS: DILAUDID IV PRN ×4 (02:43→22:00)
[2018-11-19] MEDS: SODIUM CHLORIDE FLUSH SYRINGE 10 ML IV SCH ×3 (02:44→22:00)
[2018-11-19] MEDS: VANCOMYCIN/NS 1 GM/250 ML 1 GM/250 ML BAG IV SCH ×3 (04:39→20:00)
[2018-11-19] MEDS: SODIUM CHLORIDE FLUSH SYRINGE 10 ML IV PRN (04:50)
[2018-11-19] MEDS: TYLENOL PO PRN ×2 (05:52→17:22)
[2018-11-19 05:58] LABS: Alanine Aminotransferase 25 units/L (7-56); Albumin 3.1 g/dL (3.9-5); BUN/Creatinine Ratio 5; Blood Urea Nitrogen 5 mg/dL (9-20); Calcium 8.2 mg/dL (8.4-10.2); Hemolysis Index 2
[2018-11-19] MEDS: TORADOL IV PRN (06:03)
[2018-11-19 06:07] LABS: Basophils # (Auto) 0.1 K/mm3 (0.0-0.1); Basophils % (Auto) 0.7 % (0.0-1.8); Eosinophils # (Auto) 0.3 K/mm3 (0.0-0.4); Eosinophils % (Auto) 2.7 % (0.0-4.3); Hematocrit 29.1 % (35.5-45.6); Lymphocytes % (Auto) 16.9 % (13.4-35.0); Mean Corpuscular HGB Conc 34 % (32-34); Mean Corpuscular Volume 87 fl (84-94); Monocytes # (Auto) 0.3 K/mm3 (0.0-0.8); Monocytes % (Auto) 2.6 % (0.0-7.3); Red Blood Count 3.36 M/mm3 (3.65-5.03); Red Cell Distribution Width 14.2 % (13.2-15.2)
[2018-11-19 06:51] LABS: Platelet Count 126 K/mm3 (140-440)
[2018-11-19 06:52] LABS: Mean Platelet Volume 8.6 fl (6-12)
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
[2018-11-19] MEDS: D5NS 1,000 ML IV SCH (09:52)
[2018-11-19] MEDS: PEPCID IV SCH ×2 (09:53→22:00)
[2018-11-19] MEDS: ZESTRIL PO SCH (09:53)
[2018-11-19] MEDS: ZOFRAN ODT PO SCH ×2 (09:54→21:58)
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
[2018-11-19] MEDS ORDERED: PNEUMOVAX 23 IM ONE (12:00)
[2018-11-19] MEDS ORDERED: DILAUDID PO PRN (12:25)
[2018-11-19] MEDS: MS CONTIN ER PO SCH ×2 (13:57→21:00)
--- NOTE | 2018-11-19 18:11 | Vascular Lab Report ---
Bilateral upper extremity venous Doppler. INDICATION: Bilateral upper extremity pain, swelling and erythema. Possible DVT. TECHNIQUE: Grayscale and duplex color Doppler sonographic evaluation of the veins of the upper extremities was p erformed. COMPARISON: None available. FINDINGS: No DVT is identified sonographically. Along the left forearm, there is occlusive thrombus throughout the cephalic vein. Along the right arm, there is occlusive thrombus along most of the basilic vein. No significant abnormality of the visualized soft tissues is seen. IMPRESSION: 1. Bilateral superficial venous thrombosis involving the left cephalic and right basilic veins as abo ve. 2. No sonographic evidence of DVT in either upper extremity. Signer Name: Cornell Walters MD Signed: 11/19/2018 6:06 PM Workstation Name: [id number]
[2018-11-19] MEDS: XANAX PO SCH (21:59)
[2018-11-20] MEDS: AMBIEN PO PRN (00:43)
[2018-11-20] MEDS: D5NS 1,000 ML IV SCH (00:49)
[2018-11-20] MEDS: BENADRYL IV PRN ×3 (04:57→21:04)
[2018-11-20] MEDS: DILAUDID IV PRN ×4 (04:58→18:45)
[2018-11-20] MEDS: MAXIPIME/NS 2 GM/100 ML 2 GM/100 ML BAG IV SCH ×3 (05:02→21:55)
[2018-11-20] MEDS: MS CONTIN ER PO SCH ×4 (06:04→22:03)
[2018-11-20] MEDS: VANCOMYCIN/NS 1 GM/250 ML 1 GM/250 ML BAG IV SCH ×3 (06:06→21:55)
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
[2018-11-20] MEDS: SODIUM CHLORIDE FLUSH SYRINGE 10 ML IV SCH ×2 (09:13→21:04)
[2018-11-20] MEDS: XANAX PO SCH ×2 (09:13→21:54)
[2018-11-20] MEDS: PROCARDIA XL PO SCH (09:13)
[2018-11-20] MEDS: ZESTRIL PO SCH (09:13)
[2018-11-20] MEDS: ZOFRAN ODT PO SCH ×2 (09:13→21:56)
[2018-11-20] MEDS: PEPCID IV SCH ×2 (09:14→21:56)
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
--- NOTE | 2018-11-20 15:37 | Event Note ---
Date: 11/20/[address] Dai and chart reviewed. Patient with possible septic thrombophlebitis from SVT in bilateral upper extremities and concern for compartment syndrome. Recommend vascular surgery consult for evaluation.
[2018-11-20] MEDS: PERCOCET 5/325 PO PRN ×2 (16:31→21:05)
--- NOTE | 2018-11-20 17:17 | Consultation ---
History of Present Illness - Reason for Consult Consult date: 11/20/18 SVT - History of Present Illness HPI: 28yo male with HIV and several day history of fevers and bilateral forearm pain, swelling and redness. The patient was at an outside facility where he presented with fevers and abdominal pain. The patient left AMA but per records had multiple attempts at IV placement. The patient states schafer has noted limited movement in his arm due to the pain and swelling. PE: NAD, A&Ox3 non-labored respirations RRR palpable radial pulses bilat non-pitting edema noted to both forearms with erythema, mild-moderate TTP motor/sensory intact pain not worsened with passive flexion/extension of the wrist bilat Venous studies reviewed Plan: patient with findings consistent with acute SVT patient to benefit from elevation, physical therapy to assist with ROM, warm compresses and pain control patient currently afebrile, mild leukocytosis and no drainage noted from the arm, unlikely patient with septic thrombophlebitis both arms are swollen but soft and patient was washing hands upon entering the room, low suspicion for compartment syndrome however patient should be evaluated by a hand surgeon if suspicion increases no surgical intervention at this time from vascular standpoint Past History Past Medical History: HIV/AIDS, hypertension Past Surgical History: No surgical history Social history: smoking (1 ppd) Family history: hypertension Medications and Allergies Allergies Allergy/AdvReac Type Severity Reaction Status Date / Time No Known Allergies Allergy Verified 08/08/18 16:25 Home Medications Medication Instructions Recorded Confirmed Last Taken Type Lisinopril [Zestril] 20 mg PO DAILY #30 tablet 03/16/18 11/18/18 11/16/18 Rx Biktarvy 50-200-25 mg (Nf) 1 tab PO DAILY 06/09/18 11/18/18 11/16/18 History Hydromorphone HCl [Dilaudid] 4 mg PO Q12H PRN #20 tablet 06/11/18 11/18/18 11/16/18 Rx Lunesta 1 mg PO HS #15 06/11/18 11/18/18 11/16/18 Rx Ondansetron [Zofran ODT TAB] 8 mg PO Q12HR #30 tab.rapdis 06/22/18 11/18/18 11/16/18 Rx Active Meds: Active Medications Acetaminophen (Tylenol) 650 mg PO Q4H PRN PRN Reason: Pain, Mild (1-3)/Fever > 101 Last Admin: 11/19/18 17:22 Dose: 650 mg Documented by: Alprazolam (Xanax) 2 mg PO BID [facility] Last Admin: 11/20/18 09:13 Dose: 2 mg Documented by: Diphenhydramine HCl (Benadryl) 25 mg IV Q6H PRN PRN Reason: Itching Last Admin: 11/20/18 14:39 Dose: 25 mg Documented by: Famotidine (Pepcid) 20 mg IV BID [facility] Last Admin: 11/20/18 09:14 Dose: 20 mg Documented by: Hydralazine HCl (Apresoline) 5 mg IV Q6H PRN PRN Reason: Hypertension Hydromorphone HCl (Dilaudid) 1 mg IV Q4H PRN PRN Reason: Pain , Severe (7-10) Last Admin: 11/20/18 14:39 Dose: 1 mg Documented by: Hydromorphone HCl (Dilaudid) 4 mg PO Q6H PRN PRN Reason: Pain , Severe (7-10) Last Admin: 11/20/18 00:44 Dose: 4 mg Documented by: Vancomycin HCl (Vancomycin/Ns 1 Gm/250 Ml) 1 gm in 250 mls @ 166.667 mls/hr IV Q8H [facility] Last Admin: 11/20/18 12:28 Dose: 166.667 mls/hr Documented by: Cefepime HCl (Maxipime/Ns 2 Gm/100 Ml) 2 gm in 100 mls @ 200 mls/hr IV Q8HR [facility]; Protocol Last Admin: 11/20/18 14:35 Dose: 200 mls/hr Documented by: Ketorolac Tromethamine (Toradol) 15 mg IV Q6H PRN PRN Reason: Pain, Mild (1-3) Stop: 11/23/18 16:38 Last Admin: 11/19/18 06:03 Dose: 15 mg Documented by: Lisinopril (Zestril) 20 mg PO DAILY [facility] Last Admin: 11/20/18 09:13 Dose: 20 mg Documented by: Metoclopramide HCl (Reglan) 10 mg IV Q6H PRN PRN Reason: Nausea And Vomiting Miscellaneous Medication (Biktarvy 50-200-25 Mg (Nf)) 1 tab PO DAILY [facility] Morphine Sulfate (Ms Contin Er) 15 mg PO Q8HR [facility] Last Admin: 11/20/18 13:54 Dose: Not Given Documented by: Nifedipine (Procardia Xl) 60 mg PO QDAY [facility] Last Admin: 11/20/18 09:13 Dose: 60 mg Documented by: Ondansetron HCl (Zofran Odt) 8 mg PO Q12HR [facility] Last Admin: 11/20/18 09:13 Dose: 8 mg Documented by: Ondansetron HCl (Zofran) 4 mg IV Q8H PRN PRN Reason: Nausea And Vomiting Oxycodone/Acetaminophen (Percocet 5/325) 2 tab PO Q6H PRN PRN Reason: Pain, Moderate (4-6) Last Admin: 11/20/18 16:31 Dose: 2 tab Documented by: Sodium Chloride (Sodium Chloride Flush Syringe 10 Ml) 10 ml IV BID [facility] Last Admin: 11/20/18 09:13 Dose: 10 ml Documented by: Sodium Chloride (Sodium Chloride Flush Syringe 10 Ml) 10 ml IV PRN PRN PRN Reason: LINE FLUSH Last Admin: 11/19/18 04:50 Dose: 10 ml Documented by: Zolpidem Tartrate (Ambien) 10 mg PO QHS PRN PRN Reason: Sleep Last Admin: 11/20/18 00:43 Dose: 10 mg Documented by: Exam - Constitutional Vitals: Temp Pulse Resp BP Pulse Ox 99.3 F 108 H 19 176/104 91 11/20/18 13:13 11/20/18 13:13 11/20/18 13:13 11/20/18 13:13 11/20/18 13:13 Results - Labs CBC & Chem 7: 11/19/18 05:08 11/19/18 05:08
[2018-11-21] MEDS: ZOFRAN IV PRN (00:56)
[2018-11-21] MEDS: AMBIEN PO PRN ×2 (00:56→23:51)
[2018-11-21] MEDS: DILAUDID IV PRN ×4 (00:56→22:10)
[2018-11-21 01:05] LABS: Basophils % (Auto) 0.2 % (0.0-1.8); Eosinophils # (Auto) 0.2 K/mm3 (0.0-0.4); Eosinophils % (Auto) 1.6 % (0.0-4.3); Hematocrit 29.7 % (35.5-45.6); Hemoglobin 10.1 gm/dl (11.8-15.2); Lymphocytes # (Auto) 0.7 K/mm3 (1.2-5.4); Lymphocytes % (Auto) 5.9 % (13.4-35.0); Mean Corpuscular HGB Conc 34 % (32-34); Mean Corpuscular Volume 87 fl (84-94); Monocytes # (Auto) 0.5 K/mm3 (0.0-0.8); Monocytes % (Auto) 3.9 % (0.0-7.3); Platelet Count 203 K/mm3 (140-440); Red Blood Count 3.42 M/mm3 (3.65-5.03); Red Cell Distribution Width 14.5 % (13.2-15.2)
[2018-11-21] MEDS: BENADRYL IV PRN ×2 (04:22→14:47)
[2018-11-21] MEDS: TORADOL IV PRN (04:23)
[2018-11-21] MEDS: VANCOMYCIN/NS 1 GM/250 ML 1 GM/250 ML BAG IV SCH (04:56)
[2018-11-21] MEDS: MAXIPIME/NS 2 GM/100 ML 2 GM/100 ML BAG IV SCH (05:57)
[2018-11-21] MEDS: MS CONTIN ER PO SCH ×3 (05:58→22:09)
[2018-11-21] MEDS: TYLENOL PO PRN ×2 (07:58→23:18)
--- NOTE | 2018-11-21 08:46 | XRay Report ---
CHEST 1 VIEW INDICATION: hypoxia. COMPARISON: 11/17/18 FINDINGS: Support devices: None. Heart: Within normal limits. Lungs/Pleura: No acute air space or interstitial disease. Additional findings: None. IMPRESSION: 1. No acute findings. Signer Name: Marlo Danielson MD Signed: 11/21/2018 8:41 AM Workstation Name: [id number]
--- NOTE | 2018-11-21 09:21 | Progress Note ---
Assessment and Plan Cultures: 11/18/18 Blood: no growth to date A/P: 28 -nick-old male with HIV, hypertension, chronic pancreatitis, depression. Admitted with: 1. Fever on admission: Fevers continuing. Fever spike noted 101.7. Etiology most likely upper extremity cellultis vs septic thrombophelebitis from recent peripheral IV site . Leukocytosis continuing. UA w/o pyuria. Abdomen and pelvis CT unremarkable. Blood cultures show no growth to date. Currently being treated with cefepime and Vancomycin. 2. Upper extremity Cellulitis:vs Septic thrombophelebitis: Improved. Recent admission to [facility]. Patient states that he was stuck multiple times for IV peripheral access. Right and left forearm warm and edematous with paresthesia. R>L.. Bilateral venous duplex showed bilateral superficial venous thrombosis involving the left cephalic and right basilic veins no sonographic evidence of DVT in either upper extremity. Vascular consult: patient with findings consistent with SVT. Low suspicion for septic thrombophlebitis or compartment syndrome. Hand surgeon follow-up recommended. 3. HIV: originally diagnosed in 2014. viral load here in January 2018 was 280, CD4 was 285 (31%).. Recent CD4 count on 08/13 was 669, Viral load undetectable per patient. He follows up at [facility]. [place] Current ART therapy is Biktarvy . Non formulary here. Partner to bring from home. 4. Acute on Chronic Pancreatitis: improved abdominal symptoms. Continues to consume alcohol. 1-2 drinks per day. 5. Tobacco Abuse: Discussion about smoking cessation 6. Folliculitis; Improved. upper and lower lip. 7. Diarrhea: Improved. Likely related to chronic pancreatitis Recommendations: - discontinue Cefepime - continue Vancomycin - continue Biktarvy - non formulary (will take his own) - bilateral arm elevation, physical therapy to assist with ROM, warm compresses and pain control -hand surgeon follow-up outpatient -anticipate discharge on IV antibiotics for 2 weeks [facility] M: [phone] O:[phone] Subjective Date of service: 11/21/18 Interval history: Patient seen and examined. Reports improved upper extremity ROM symptoms. Fevers continuing. Objective - Exam Narrative Exam: Constitutional: Alert, cooperative. Improved bilateral upper extremity pain. Head, Ears, Nose: Normocephalic, atraumatic. External ears, nose normal Eyes: Conjunctivae/corneas clear. No icterus. No ptosis. Neck: Supple, no meningeal signs Oral: dentition fair. no thrush Cardiovascular: S1, S2 normal. Respiratory: Good air entry, clear to auscultation bilaterally GI: Soft, non-tender; bowel sounds normal. No peritoneal signs Musculoskeletal: Right/Left upper extremity thrombophlebitis,warm and edematous. no drainage. + paresthesia Skin: Foliculitis upper and lower lip- improved Hem/Lymphatic: No palpable cervical or supraclavicular nodes. No lymphangitis Psych: minor agitation Neurological: Awake, alert, oriented. - Constitutional Vitals: Vital Signs Temp Pulse Resp BP Pulse Ox 99.6 F 112 H 19 101/34 84 11/21/18 05:46 11/21/18 05:46 11/21/18 07:09 11/21/18 05:46 11/21/18 05:46 Temperature -Last 24 Hours Temperature 99.6 F Temperature 100.1 F Temperature 101.7 F Temperature 99.3 F - Labs CBC & Chem 7: 11/21/18 00:39 11/19/18 05:08 Labs: Abnormal lab results 11/21/18 Range/Units 00:39 WBC 12.6 H (4.5-11.0) K/mm3 RBC 3.42 L (3.65-5.03) M/mm3 Hgb 10.1 L (11.8-15.2) gm/dl Hct 29.7 L (35.5-45.6) % Lymph % (Auto) 5.9 L (13.4-35.0) % Lymph # 0.7 L (1.2-5.4) K/mm3 Seg Neutrophils % 88.4 H (40.0-70.0) % Seg Neutrophils # 11.1 H (1.8-7.7) K/mm3
[2018-11-21] MEDS: PROCARDIA XL PO SCH (09:55)
[2018-11-21] MEDS: PERCOCET 5/325 PO PRN ×2 (09:56→18:11)
[2018-11-21] MEDS: ZESTRIL PO SCH (09:56)
[2018-11-21] MEDS: PEPCID IV SCH ×2 (09:56→22:08)
[2018-11-21] MEDS: XANAX PO SCH ×2 (09:57→22:08)
[2018-11-21] MEDS: ZOFRAN ODT PO SCH ×2 (09:57→22:08)
[2018-11-21] MEDS: SODIUM CHLORIDE FLUSH SYRINGE 10 ML IV SCH ×2 (09:57→22:08)
[2018-11-21] MEDS: VANCOMYCIN 1,500 MG in NACL 0.9% 500 ML 500 ML IV SCH ×2 (12:46→22:07)
--- NOTE | 2018-11-21 17:27 | Progress Note ---
Assessment and Plan - Sepsis from bilat Upper extremity cellulits: and Septic thrombophelebitis: cont abx per ID - Vanc - Upper extremity Cellulitis:vs Septic thrombophelebitis: Improved. Recent admission to [facility]. Patient states that he was stuck multiple times for IV peripheral access. Right and left forearm warm and edematous with paresthesia. R>L.. Bilateral venous duplex showed bilateral superficial venous thrombosis involving the left cephalic and right basilic veins no sonographic evidence of DVT in either upper extremity. Vascular consult: patient with findings consistent with SVT. Low suspicion for septic thrombophlebitis or compartment syndrome. Arm elevation - HIV: originally diagnosed in 2014. viral load here in January 2018 was 280, CD4 was 285 (31%).. Recent CD4 count on 08/13 was 669, Viral load undetectable per patient. He follows up at [facility]. in [facility]. Current ART therapy is Biktarvy . Non formulary here. Partner to bring from home. - Acute on Chronic Pancreatitis: improved abdominal symptoms. Continues to consume alcohol. 1-2 drinks per day. - Tobacco Abuse: Discussion about smoking cessation - Folliculitis; Improved. upper and lower lip. - Diarrhea: Improved. Likely related to chronic pancreatitis -DVT with lovenox and GI with pepcid -code status : Pt is full code Time spent 31 mins Subjective Date of service: 11/21/18 Principal diagnosis: sepsis, bilateral upper extremity cellulitis, thrombophlebitis Interval history: Patient seen and examined. Said to be hypoxic this morning by the patient's nurse with O2 sat in the 60s. Was placed on non-rebreather that improved O2 sats to 90s. Continued to run fever. Objective - Exam Narrative Exam: Constitutional: Well-nourished well-developed. In no distress Head: Normocephalic atraumatic Eyes: Pupils are equal round and reactive to light Nose: No enlarged turbinates, no septal deviation. Mouth: Moist mucous membranes. Neck: Supple no thyromegaly. No bruit. No JVD Heart: Regular rate and rhythm, S1-S2 normal. No rubs murmurs or gallop Lungs: Clear to auscultation bilaterally. no rales or rhonchi Abdomen: Soft, nontender. Bowel sound are present. Extremities: No edema, no cyanosis, no clubbing. Neuro: Alert oriented Oriented x3. No focal sensory or motor deficit. Skin: No rashes or hyperpigmented spots Musculoskeletal system: No joint pain or swelling Hematological: No petechia or subcutanous hemorrhages. Immunological: No multiple septic spots on the skin Lymphatic: No generalized lymphadenopathy Psychiatry: Euthymic. Calm. - Constitutional Vitals: Vital Signs - 12hr 11/21/18 11/21/18 11/21/18 05:46 05:58 06:58 Temperature 99.6 F Pulse Rate 112 H Respiratory 20 18 18 Rate Blood Pressure 101/34 O2 Sat by Pulse 84 Oximetry 11/21/18 11/21/18 11/21/18 07:09 08:16 09:51 Temperature 103.1 F H Pulse Rate 140 H 120 H Respiratory 19 26 H 20 Rate Blood Pressure 143/64 107/57 O2 Sat by Pulse 100 100 Oximetry 11/21/18 11/21/18 09:56 12:37 Temperature 97.4 F L Pulse Rate 112 H Respiratory 20 Rate Blood Pressure 110/69 96/48 O2 Sat by Pulse 82 L Oximetry - Labs CBC & Chem 7: 11/21/18 00:39 11/19/18 05:08 Labs: Abnormal lab results 11/21/18 Range/Units 00:39 WBC 12.6 H (4.5-11.0) K/mm3 RBC 3.42 L (3.65-5.03) M/mm3 Hgb 10.1 L (11.8-15.2) gm/dl Hct 29.7 L (35.5-45.6) % Lymph % (Auto) 5.9 L (13.4-35.0) % Lymph # 0.7 L (1.2-5.4) K/mm3 Seg Neutrophils % 88.4 H (40.0-70.0) % Seg Neutrophils # 11.1 H (1.8-7.7) K/mm3
[2018-11-22] MEDS: BENADRYL IV PRN ×2 (02:59→23:46)
[2018-11-22] MEDS: PERCOCET 5/325 PO PRN (02:59)
[2018-11-22 03:48] LABS: ABG Base Excess -1.8 mmol/L (-2.0-3.0); ABG HCO3 20.9 mmol/L (20.0-26.0); ABG Methemoglobin 0.5 % (0.0-1.5); ABG Oxygen Saturation 95.2 % (95.0-99.0); ABG PH 7.475 pH Units (7.350-7.450); ABG PO2 68.9 mm Hg (80.0-90.0)
[2018-11-22 05:07] LABS: Basophils % (Auto) 0.5 % (0.0-1.8); Eosinophils # (Auto) 0.2 K/mm3 (0.0-0.4); Eosinophils % (Auto) 2.5 % (0.0-4.3); Hematocrit 28.1 % (35.5-45.6); Hemoglobin 9.8 gm/dl (11.8-15.2); Lymphocytes # (Auto) 0.8 K/mm3 (1.2-5.4); Mean Corpuscular HGB Conc 35 % (32-34); Mean Corpuscular Volume 86 fl (84-94); Monocytes # (Auto) 0.3 K/mm3 (0.0-0.8); Monocytes % (Auto) 3.7 % (0.0-7.3); Platelet Count 139 K/mm3 (140-440); Red Blood Count 3.27 M/mm3 (3.65-5.03); Red Cell Distribution Width 14.5 % (13.2-15.2)
[2018-11-22 05:24] LABS: Alanine Aminotransferase 24 units/L (7-56); Albumin 2.8 g/dL (3.9-5); BUN/Creatinine Ratio 9; Blood Urea Nitrogen 12 mg/dL (9-20); Calcium 8.3 mg/dL (8.4-10.2); Hemolysis Index 35
[2018-11-22] MEDS: MS CONTIN ER PO SCH ×4 (05:38→21:54)
[2018-11-22] MEDS: VANCOMYCIN 1,500 MG in NACL 0.9% 500 ML 500 ML IV SCH ×2 (05:38→14:48)
[2018-11-22] MEDS ORDERED: VANCOMYCIN 2,000 MG in NACL 0.9% 500 ML 500 ML IV SCH ×2 (06:00→18:00)
[2018-11-22] MEDS: TYLENOL PO PRN ×3 (07:23→23:54)
[2018-11-22] MEDS: DILAUDID IV PRN ×4 (07:24→23:47)
[2018-11-22] MEDS: PROCARDIA XL PO SCH (10:44)
[2018-11-22] MEDS: ZESTRIL PO SCH (10:44)
[2018-11-22] MEDS: XANAX PO SCH ×2 (10:45→21:56)
[2018-11-22] MEDS: ZOFRAN ODT PO SCH ×2 (10:45→22:00)
[2018-11-22] MEDS: SODIUM CHLORIDE FLUSH SYRINGE 10 ML IV SCH ×2 (10:46→21:57)
[2018-11-22] MEDS: PEPCID IV SCH (10:46)
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
--- NOTE | 2018-11-22 14:55 | Progress Note ---
Subjective Date of service: 11/22/18 Principal diagnosis: sepsis, bilateral upper extremity cellulitis, thrombophlebitis Interval history: Patient bilateral forearm swelling and erythema much improved. both arms warm and well perfused with palpable radial pulses. motor/sensory intact. continue with conservative management. no further work-up/intervention at this time from vascular standpoint. please call for questions/concerns. no follow-up required. Objective - Constitutional Vitals: Vital Signs - 12hr 11/22/18 11/22/18 11/22/18 02:59 03:15 03:59 Temperature 98.6 F Pulse Rate Respiratory 19 18 18 Rate Blood Pressure 110/48 O2 Sat by Pulse Oximetry 11/22/18 11/22/18 11/22/18 05:38 05:40 06:38 Temperature 103.0 F H Pulse Rate 127 H Respiratory 18 22 18 Rate Blood Pressure 118/52 O2 Sat by Pulse 77 L Oximetry 11/22/18 11/22/18 11/22/18 07:23 07:24 07:35 Temperature Pulse Rate Respiratory 18 18 Rate Blood Pressure O2 Sat by Pulse 95 Oximetry 11/22/18 11/22/18 11/22/18 07:54 08:04 10:00 Temperature Pulse Rate Respiratory 17 17 Rate Blood Pressure O2 Sat by Pulse 96 Oximetry 11/22/18 11/22/18 11/22/18 10:26 10:44 12:07 Temperature 98.8 F Pulse Rate 110 H 108 H 103 H Respiratory 20 20 Rate Blood Pressure 116/62 116/62 105/50 O2 Sat by Pulse 96 100 Oximetry - Labs CBC & Chem 7: 11/22/18 04:40 11/22/18 04:40 Labs: Abnormal lab results 11/22/18 11/22/18 11/22/18 Range/Units 03:40 04:40 04:40 RBC 3.27 L (3.65-5.03) M/mm3 Hgb 9.8 L (11.8-15.2) gm/dl Hct 28.1 L (35.5-45.6) % MCHC 35 H (32-34) % Plt Count 139 L (140-440) K/mm3 Lymph % (Auto) 9.0 L (13.4-35.0) % Lymph # 0.8 L (1.2-5.4) K/mm3 Seg Neutrophils % 84.3 H (40.0-70.0) % ABG pH 7.475 H (7.350-7.450) pH Units ABG pO2 68.9 L (80.0-90.0) mm Hg ABG Hemoglobin 10.9 L (14.0-18.0) gm/dl Oxyhemoglobin 93.4 L (95.0-99.0) % Sodium 135 L (137-145) mmol/L Carbon Dioxide 20 L (22-30) mmol/L Glucose 117 H (75-100) mg/dL Calcium 8.3 L (8.4-10.2) mg/dL AST 45 H (5-40) units/L Alkaline Phosphatase 32 L (35-129) units/L Albumin 2.8 L (3.9-5) g/dL Medications & Allergies - Medications Allergies/Adverse Reactions: Allergies No Known Allergies Allergy (Verified 08/08/18 16:25) Home Medications: Home Medications Medication Instructions Recorded Confirmed Last Taken Type Lisinopril [Zestril] 20 mg PO DAILY #30 tablet 03/16/18 11/18/18 11/16/18 Rx Biktarvy 50-200-25 mg (Nf) 1 tab PO DAILY 06/09/18 11/18/18 11/16/18 History Hydromorphone HCl [Dilaudid] 4 mg PO Q12H PRN #20 tablet 06/11/18 11/18/18 11/16/18 Rx Lunesta 1 mg PO HS #15 06/11/18 11/18/18 11/16/18 Rx Ondansetron [Zofran ODT TAB] 8 mg PO Q12HR #30 tab.rapdis 06/22/18 11/18/18 0 11/16/18 Rx Active Medications: Generic Name Dose Route Start Last Admin Trade Name Freq PRN Reason Stop Dose Admin Acetaminophen 650 mg 11/18/18 12:58 11/22/18 07:23 Tylenol PO 650 mg Q4H PRN Administration Pain, Mild (1-3)/Fever > 101 Alprazolam 2 mg 11/19/18 22:00 11/22/18 10:45 Xanax PO 2 mg BID SHERMAN Administration Diphenhydramine HCl 25 mg 11/18/18 16:28 11/22/18 02:59 Benadryl IV 25 mg Q6H PRN Administration Itching Famotidine 20 mg 11/18/18 22:00 11/22/18 10:46 Pepcid IV 20 mg BID SHERMAN Administration Hydralazine HCl 5 mg 11/18/18 22:17 Apresoline IV Q6H PRN Hypertension Hydromorphone HCl 1 mg 11/18/18 16:39 11/22/18 12:52 Dilaudid IV 1 mg Q4H PRN Administration Pain , Severe (7-10) Hydromorphone HCl 4 mg 11/19/18 12:25 11/20/18 00:44 Dilaudid PO 4 mg Q6H PRN Administration Pain , Severe (7-10) Vancomycin HCl 2,000 mg/ 540 mls @ 250 mls/hr 11/22/18 18:00 Sodium Chloride IV Q12H SHERMAN Ketorolac Tromethamine 15 mg 11/18/18 16:39 11/21/18 04:23 Toradol IV 11/23/18 16:38 15 mg Q6H PRN Administration Pain, Mild (1-3) Lisinopril 20 mg 11/18/18 17:00 11/22/18 10:44 Zestril PO 20 mg DAILY SHERMAN Administration Metoclopramide HCl 10 mg 11/18/18 16:28 Reglan IV Q6H PRN Nausea And Vomiting Miscellaneous Medication 1 tab 11/18/18 16:30 Biktarvy 50-200-25 Mg (Nf) PO DAILY [facility] Morphine Sulfate 15 mg 11/19/18 14:00 11/22/18 14:42 Ms Contin Er PO Not Given Q8HR SHERMAN Nifedipine 60 mg 11/20/18 10:00 11/22/18 10:44 Procardia Xl PO 60 mg QDAY SHERMAN Administration Ondansetron HCl 8 mg 11/18/18 22:00 11/22/18 10:45 Zofran Odt PO 8 mg Q12HR SHERMAN Administration Ondansetron HCl 4 mg 11/18/18 16:28 11/21/18 00:56 Zofran IV 4 mg Q8H PRN Administration Nausea And Vomiting Oxycodone/Acetaminophen 2 tab 11/19/18 12:25 11/22/18 02:59 Percocet 5/325 PO 2 tab Q6H PRN Administration Pain, Moderate (4-6) Sodium Chloride 10 ml 11/18/18 22:00 11/22/18 10:46 Sodium Chloride Flush Syringe 10 Ml IV 10 ml BID SHERMAN Administration Sodium Chloride 10 ml 11/18/18 16:28 11/19/18 04:50 Sodium Chloride Flush Syringe 10 Ml IV 10 ml PRN PRN Administration LINE FLUSH Zolpidem Tartrate 10 mg 11/18/18 17:56 11/21/18 23:51 Ambien PO 10 mg QHS PRN Administration Sleep
[2018-11-22] MEDS ORDERED: CORDARONE PO ONE (18:00)
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
[2018-11-22] MEDS ORDERED: NACL 0.9% 1000 ML 2,000 ML IV SCH (19:00)
[2018-11-22] MEDS: NACL 0.9% 1000 ML 1,000 ML IV SCH (19:50)
--- NOTE | 2018-11-22 20:19 | Event Note ---
Date: 11/22/18 Called to see patient who was having persistent tachycardia. still runs fever. Comments iv fluid Xfer to [facility]
[2018-11-22] MEDS: PEPCID PO SCH (21:56)
[2018-11-23] MEDS: VANCOMYCIN 2,000 MG in NACL 0.9% 500 ML 500 ML IV SCH ×2 (05:14→18:40)
[2018-11-23] MEDS: MS CONTIN ER PO SCH ×3 (06:52→22:10)
[2018-11-23 07:04] LABS: Basophils # (Auto) 0.1 K/mm3 (0.0-0.1); Basophils % (Auto) 0.5 % (0.0-1.8); Eosinophils # (Auto) 0.2 K/mm3 (0.0-0.4); Eosinophils % (Auto) 2.1 % (0.0-4.3); Hematocrit 28.9 % (35.5-45.6); Hemoglobin 9.6 gm/dl (11.8-15.2); Lymphocytes # (Auto) 1.4 K/mm3 (1.2-5.4); Lymphocytes % (Auto) 11.9 % (13.4-35.0); Mean Corpuscular HGB Conc 33 % (32-34); Mean Corpuscular Volume 87 fl (84-94); Monocytes # (Auto) 0.5 K/mm3 (0.0-0.8); Monocytes % (Auto) 4.7 % (0.0-7.3); Platelet Count 175 K/mm3 (140-440); Red Blood Count 3.33 M/mm3 (3.65-5.03); Red Cell Distribution Width 15.1 % (13.2-15.2)
[2018-11-23 07:45] LABS: Albumin 2.8 g/dL (3.9-5); Calcium 8.5 mg/dL (8.4-10.2)
[2018-11-23] MEDS: TYLENOL PO PRN ×2 (08:37→14:55)
[2018-11-23] MEDS ORDERED: BIKTARVY PO SCH (10:00)
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
[2018-11-23] MEDS: XANAX PO SCH ×2 (12:33→22:10)
[2018-11-23] MEDS: PROCARDIA XL PO SCH (12:34)
[2018-11-23] MEDS: ZESTRIL PO SCH (12:34)
[2018-11-23] MEDS: SODIUM CHLORIDE FLUSH SYRINGE 10 ML IV SCH ×2 (12:34→22:10)
[2018-11-23] MEDS: PEPCID PO SCH ×2 (12:34→22:10)
[2018-11-23] MEDS: ZOFRAN ODT PO SCH ×2 (12:34→22:10)
[2018-11-23] MEDS: DILAUDID IV PRN ×2 (12:35→22:10)
[2018-11-23] MEDS: BENADRYL IV PRN (12:37)
[2018-11-23] MEDS: NACL 0.9% 1000 ML 1,000 ML IV SCH ×2 (14:54→18:41)
[2018-11-24] MEDS: DILAUDID IV PRN ×4 (02:21→19:40)
[2018-11-24] MEDS: BENADRYL IV PRN ×3 (02:21→19:41)
[2018-11-24] MEDS: TYLENOL PO PRN ×2 (04:01→23:35)
[2018-11-24] MEDS: MS CONTIN ER PO SCH ×3 (05:10→22:02)
[2018-11-24] MEDS: VANCOMYCIN 2,000 MG in NACL 0.9% 500 ML 500 ML IV SCH (05:13)
[2018-11-24] MEDS: NACL 0.9% 1000 ML 1,000 ML IV SCH ×3 (05:13→22:04)
[2018-11-24] MEDS: REGLAN IV PRN (06:07)
[2018-11-24 06:51] LABS: Basophils % (Auto) 0.4 % (0.0-1.8); Eosinophils # (Auto) 0.2 K/mm3 (0.0-0.4); Hematocrit 24.6 % (35.5-45.6); Hemoglobin 8.4 gm/dl (11.8-15.2); Lymphocytes % (Auto) 10.5 % (13.4-35.0); Mean Corpuscular HGB Conc 34 % (32-34); Mean Corpuscular Volume 86 fl (84-94); Monocytes # (Auto) 0.6 K/mm3 (0.0-0.8); Monocytes % (Auto) 6.3 % (0.0-7.3); Platelet Count 129 K/mm3 (140-440); Red Blood Count 2.86 M/mm3 (3.65-5.03); Red Cell Distribution Width 15.2 % (13.2-15.2)
[2018-11-24 07:16] LABS: Albumin 2.7 g/dL (3.9-5); Calcium 7.8 mg/dL (8.4-10.2)
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
[2018-11-24] MEDS: ZOFRAN ODT PO SCH ×2 (10:39→22:04)
[2018-11-24] MEDS: XANAX PO SCH ×2 (10:40→22:03)
[2018-11-24] MEDS: PEPCID PO SCH ×2 (10:41→22:04)
[2018-11-24] MEDS: SODIUM CHLORIDE FLUSH SYRINGE 10 ML IV SCH ×2 (10:41→22:04)
[2018-11-24] MEDS: PROCARDIA XL PO SCH (10:44)
[2018-11-24] MEDS: ZESTRIL PO SCH (10:44)
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
[2018-11-24] MEDS: DAPTOmycin 750 MG in NACL 0.9% 100 ML IV SCH (12:10)
[2018-11-24] MEDS: MAXIPIME/NS 2 GM/100 ML 2 GM/100 ML BAG IV SCH (15:23)
[2018-11-24] MEDS: ZOFRAN IV PRN (19:41)
[2018-11-24] MEDS ORDERED: TYLENOL PR PRN (23:32)
[2018-11-25] MEDS: DILAUDID IV PRN ×3 (00:25→10:30)
[2018-11-25] MEDS: MAXIPIME/NS 2 GM/100 ML 2 GM/100 ML BAG IV SCH ×2 (00:25→14:12)
[2018-11-25] MEDS: BENADRYL IV PRN ×2 (01:17→14:13)
[2018-11-25] MEDS: NACL 0.9% 1000 ML 1,000 ML IV SCH ×2 (05:02→14:12)
[2018-11-25 05:04] LABS: Basophils % (Auto) 0.2 % (0.0-1.8); Eosinophils # (Auto) 0.1 K/mm3 (0.0-0.4); Eosinophils % (Auto) 1.2 % (0.0-4.3); Hematocrit 26.5 % (35.5-45.6); Lymphocytes % (Auto) 9.6 % (13.4-35.0); Mean Corpuscular HGB Conc 34 % (32-34); Mean Corpuscular Volume 87 fl (84-94); Monocytes # (Auto) 0.6 K/mm3 (0.0-0.8); Monocytes % (Auto) 5.7 % (0.0-7.3); Platelet Count 200 K/mm3 (140-440); Red Blood Count 3.06 M/mm3 (3.65-5.03); Red Cell Distribution Width 15.2 % (13.2-15.2)
[2018-11-25 05:32] LABS: Albumin 2.6 g/dL (3.9-5)
[2018-11-25] MEDS: MS CONTIN ER PO SCH ×3 (05:57→21:22)
[2018-11-25] MEDS: PROCARDIA XL PO SCH (10:14)
[2018-11-25] MEDS: ZOFRAN ODT PO SCH ×2 (10:14→21:24)
[2018-11-25] MEDS: SODIUM CHLORIDE FLUSH SYRINGE 10 ML IV SCH ×2 (10:14→21:22)
[2018-11-25] MEDS: XANAX PO SCH (10:14)
[2018-11-25] MEDS: ZESTRIL PO SCH (10:14)
[2018-11-25] MEDS: PEPCID PO SCH ×2 (10:14→21:22)
[2018-11-25] MEDS: DAPTOmycin 750 MG in NACL 0.9% 100 ML IV SCH (10:19)
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
[2018-11-25] MEDS ORDERED: DILAUDID IV PRN (15:17)
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
[2018-11-25] MEDS: DILAUDID PO PRN (19:41)
[2018-11-25] MEDS: TYLENOL PO PRN (19:41)
[2018-11-26] MEDS: TYLENOL PO PRN ×3 (00:12→21:10)
[2018-11-26] MEDS: MAXIPIME/NS 2 GM/100 ML 2 GM/100 ML BAG IV SCH ×2 (00:12→14:26)
[2018-11-26] MEDS: BENADRYL IV PRN ×2 (01:40→21:10)
[2018-11-26] MEDS: DILAUDID PO PRN (05:13)
[2018-11-26 06:13] LABS: Basophils # (Auto) 0.1 K/mm3 (0.0-0.1); Basophils % (Auto) 0.8 % (0.0-1.8); Eosinophils # (Auto) 0.7 K/mm3 (0.0-0.4); Eosinophils % (Auto) 4.8 % (0.0-4.3); Hematocrit 28.9 % (35.5-45.6); Hemoglobin 9.6 gm/dl (11.8-15.2); Lymphocytes # (Auto) 1.9 K/mm3 (1.2-5.4); Lymphocytes % (Auto) 12.4 % (13.4-35.0); Mean Corpuscular HGB Conc 33 % (32-34); Mean Corpuscular Volume 88 fl (84-94); Monocytes # (Auto) 0.7 K/mm3 (0.0-0.8); Monocytes % (Auto) 4.3 % (0.0-7.3); Red Cell Distribution Width 15.8 % (13.2-15.2)
[2018-11-26 06:18] LABS: Platelet Count 223 K/mm3 (140-440)
[2018-11-26 06:40] LABS: Alanine Aminotransferase 46 units/L (7-56); BUN/Creatinine Ratio 4; Blood Urea Nitrogen 7 mg/dL (9-20); Calcium 8.3 mg/dL (8.4-10.2); Hemolysis Index 0
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
[2018-11-26] MEDS ORDERED: NACL 0.9% 1000 ML 1,000 ML IV SCH (09:00)
[2018-11-26] MEDS ORDERED: NACL 0.9% 1000 ML 2,000 ML IV ONE (09:00)
[2018-11-26] MEDS: PEPCID PO SCH ×2 (09:54→21:10)
[2018-11-26] MEDS: DAPTOmycin 750 MG in NACL 0.9% 100 ML IV SCH (09:54)
[2018-11-26] MEDS: MS CONTIN ER PO SCH ×2 (09:54→21:40)
[2018-11-26] MEDS: ZOFRAN ODT PO SCH ×2 (09:54→21:13)
[2018-11-26] MEDS: SODIUM CHLORIDE FLUSH SYRINGE 10 ML IV SCH ×2 (09:55→21:11)
[2018-11-26] MEDS: PROCARDIA XL PO SCH (09:59)
[2018-11-26] MEDS: DILAUDID IV PRN ×2 (10:02→21:09)
[2018-11-26] MEDS: ZOLOFT PO SCH (10:02)
[2018-11-26] MEDS ORDERED: SERTRALINE HCL 25 MG PO SCH (11:30)
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
[2018-11-26] MEDS: NACL 0.9% 1000 ML 1,000 ML IV SCH (14:26)
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
--- NOTE | 2018-11-26 17:04 | Cat Scan Report ---
CT upper extrem RT wo con INDICATION / CLINICAL INFORMATION: evaluate for abscess. TECHNIQUE: All CT scans at this location are performed using CT dose reduction for ALARA by means of automated e xposure control. COMPARISON: None available. FINDINGS: Diffuse subcutaneous edema is present. No drainable fluid collection is seen. No abscess is identifie d. The muscles and bones of the forearm and distal upper arm. The unremarkable. IMPRESSION: Diffuse subcutaneous edema. No abscess is identified Signer Name: Fareed Holman MD FACR Signed: 11/26/2018 5:00 PM Workstation Name: [id number]
--- NOTE | 2018-11-26 17:17 | XRay Report ---
RIGHT WRIST 3 VIEWS INDICATION / CLINICAL INFORMATION: evaluate for fracture/abscess. COMPARISON: None available. FINDINGS: No significant skeletal abnormality. Signer Name: Fareed Holman MD FACR Signed: 11/26/2018 5:13 PM Workstation Name: [id number]
--- NOTE | 2018-11-26 17:18 | XRay Report ---
RIGHT ELBOW 3 VIEWS INDICATION / CLINICAL INFORMATION: evaluate for fracture/abscess. COMPARISON: None available. FINDINGS: No significant skeletal abnormality. Signer Name: Fareed Holman MD FACR Signed: 11/26/2018 5:13 PM Workstation Name: [id number]
--- NOTE | 2018-11-26 17:18 | XRay Report ---
RIGHT HAND 3 VIEWS INDICATION / CLINICAL INFORMATION: evaluate for fracture/abscess. COMPARISON: None available. FINDINGS: No significant skeletal abnormality. Signer Name: Fareed Holman MD FACR Signed: 11/26/2018 5:14 PM Workstation Name: [id number]
[2018-11-27] MEDS: XANAX PO SCH ×3 (00:28→21:34)
[2018-11-27] MEDS: MAXIPIME/NS 2 GM/100 ML 2 GM/100 ML BAG IV SCH ×2 (00:28→13:00)
[2018-11-27] MEDS: NACL 0.9% 1000 ML 1,000 ML IV SCH ×2 (00:28→17:44)
[2018-11-27] MEDS: DILAUDID IV PRN ×3 (04:48→17:41)
[2018-11-27] MEDS: BENADRYL IV PRN ×3 (04:49→17:42)
[2018-11-27 07:49] LABS: Hematocrit 24.7 % (35.5-45.6); Hemoglobin 8.4 gm/dl (11.8-15.2); Mean Corpuscular HGB Conc 34 % (32-34); Mean Corpuscular Volume 87 fl (84-94); Platelet Count 370 K/mm3 (140-440); Red Blood Count 2.86 M/mm3 (3.65-5.03); Red Cell Distribution Width 15.4 % (13.2-15.2)
[2018-11-27 08:06] LABS: BUN/Creatinine Ratio 5; Blood Urea Nitrogen 8 mg/dL (9-20); Calcium 8.3 mg/dL (8.4-10.2); Hemolysis Index 0
[2018-11-27] MEDS: ZOFRAN ODT PO SCH ×2 (09:32→21:35)
[2018-11-27] MEDS: PEPCID PO SCH ×2 (09:32→21:34)
[2018-11-27] MEDS: MS CONTIN ER PO SCH ×2 (09:32→21:34)
[2018-11-27] MEDS: ZOLOFT PO SCH (09:32)
[2018-11-27] MEDS: SODIUM CHLORIDE FLUSH SYRINGE 10 ML IV SCH ×2 (09:33→21:35)
[2018-11-27] MEDS: PROCARDIA XL PO SCH (09:42)
[2018-11-27] MEDS: DAPTOmycin 750 MG in NACL 0.9% 100 ML IV SCH (10:52)
--- NOTE | 2018-11-27 11:08 | Progress Note ---
Subjective - Reason for Consult Consult date: 11/27/18 Reason for consult: Psychiatry Follow-up - Chief Complaint Chief complaint: "I feel okay" 28 year old AAM seen for psychiatric evaluation on the telemetry floor for "erratic behavior." Today the patient was calm and cooperative during the assessment. He stated that he feel better overall. He stated that he will need a referral fro outpatient psy services. He denies SI/HI's and AVH's. He denies any side effect from his medications. Mental Status Exam - Vital signs Last Vital Signs Temp 98.4 F 11/27/18 07:27 Pulse 113 H 11/27/18 07:27 Resp 20 11/27/18 10:54 BP 96/62 11/27/18 07:27 Pulse Ox 89 11/27/18 07:27 - Exam Narrative exam: MSE: Appearance: calm, cooperative Behavior: regular eye contact Speech: regular rate and tone Mood: "okay' Affect: congruent to mood Thought Process:linear Thought Content: denies SI/HI's and AVH's. Motor Activity: ambulatory Cognition: A/O x3 Insight: appropriate Judgment: appropriate Assessment and Plan Impression: Unspecified Anxiety DO. Hx of PTSD/Depression. Today the patient was calm and cooperative during the assessment. No acute withdrawals noted (benzos). Recommendation/Plan: Continue Zoloft 25 mg PO daily for depression/PTSD/Anxiety and Xanax 0.5 mg PO BID for anxiety. Discussed possible suicidality/medication induced del with the patient reference Zoloft, he verbalized understanding. Per the patient, he took 2 mg of Xanax a day a for a year prior to his hospital admission. Do not give opioid and benzos concurrently. Discussed with the patient's hospitalist to start Xanax to prevent possible benzos withdrawals, he agreed. Psy sign off. Dispo: The patient can follow up with [facility] for outpatient psy services. Will staff with Dr Shabana Martin.
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
[2018-11-27] MEDS: TYLENOL PO PRN (21:33)
[2018-11-28] MEDS: MAXIPIME/NS 2 GM/100 ML 2 GM/100 ML BAG IV SCH ×2 (01:27→15:12)
[2018-11-28] MEDS: DILAUDID IV PRN ×3 (01:28→17:19)
[2018-11-28] MEDS: BENADRYL IV PRN ×3 (01:28→17:19)
[2018-11-28] MEDS: NACL 0.9% 1000 ML 1,000 ML IV SCH ×2 (01:30→15:16)
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
[2018-11-28] MEDS: ZOFRAN ODT PO SCH ×2 (09:48→21:15)
[2018-11-28] MEDS: PROCARDIA XL PO SCH (09:49)
[2018-11-28] MEDS: PEPCID PO SCH ×2 (09:49→21:14)
[2018-11-28] MEDS: MS CONTIN ER PO SCH ×2 (09:49→21:14)
[2018-11-28] MEDS: XANAX PO SCH ×2 (09:50→21:15)
[2018-11-28] MEDS: ZOLOFT PO SCH (09:50)
[2018-11-28] MEDS: DAPTOmycin 750 MG in NACL 0.9% 100 ML IV SCH (09:55)
[2018-11-28] MEDS: SODIUM CHLORIDE FLUSH SYRINGE 10 ML IV SCH ×2 (09:56→21:15)
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
--- NOTE | 2018-11-28 14:20 | XRay Report ---
CHEST 1 VIEW INDICATION / CLINICAL INFORMATION: continuing fevers, productive cough. COMPARISON: 11/21/2018 FINDINGS: SUPPORT DEVICES: None. HEART / MEDIASTINUM: No significant abnormality. LUNGS / PLEURA: There has been interval change. Increased interstitial markings are now seen as well as moderate consolidation at the right costophrenic angle with minimal effusion. There is also 1.5 cm nodule now present in the right upper lobe not seen previously. The left lung and pleural space julianne in clear. No pneumothorax. ADDITIONAL FINDINGS: No significant additional findings. IMPRESSION: 1 Worsening right lung likely due to either developing pneumonia or possibly septic emboli. PTE is al so a possibility Signer Name: Devon Bain MD Signed: 11/28/2018 2:15 PM Workstation Name: [id number]
[2018-11-28] MEDS: NORCO 7.5/325 PO PRN (15:13)
[2018-11-29] MEDS: TYLENOL PO PRN (00:17)
[2018-11-29] MEDS: DILAUDID IV PRN ×3 (00:18→17:53)
[2018-11-29] MEDS: BENADRYL IV PRN ×3 (00:18→17:52)
[2018-11-29] MEDS: AMBIEN PO PRN (02:30)
[2018-11-29] MEDS: MAXIPIME/NS 2 GM/100 ML 2 GM/100 ML BAG IV SCH ×2 (02:30→15:48)
[2018-11-29] MEDS: NORCO 7.5/325 PO PRN ×2 (05:15→14:15)
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
[2018-11-29] MEDS: MS CONTIN ER PO SCH ×2 (10:01→21:06)
[2018-11-29] MEDS: ZOFRAN ODT PO SCH ×2 (10:01→21:06)
[2018-11-29] MEDS: ZOLOFT PO SCH (10:03)
[2018-11-29] MEDS: PROCARDIA XL PO SCH (10:03)
[2018-11-29] MEDS: PEPCID PO SCH ×2 (10:03→21:06)
[2018-11-29] MEDS: SODIUM CHLORIDE FLUSH SYRINGE 10 ML IV SCH ×2 (10:06→22:05)
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
[2018-11-29] MEDS: XANAX PO SCH ×2 (10:55→21:06)
[2018-11-29] MEDS: DAPTOmycin 750 MG in NACL 0.9% 100 ML IV SCH (13:55)
[2018-11-29] MEDS: NACL 0.9% 1000 ML 1,000 ML IV SCH (13:55)
[2018-11-29] MEDS: BACTRIM DS PO SCH ×2 (13:55→21:06)
--- NOTE | 2018-11-29 14:52 | Vascular Lab Report ---
LEFT UPPER EXTREMITY VENOUS DOPPLER ULTRASOUND HISTORY: Upper extremity pain and swelling. COMPARISON: None. TECHNIQUE: Grayscale, color and spectral Doppler imaging of the venous system of the left upper extre mity was performed. FINDINGS: Internal Jugular Vein: Normal grayscale appearance and flow. Subclavian Vein: Normal grayscale appearance and flow. Axillary Vein: Noncompressible Brachial vein: Noncompressible Basilic vein: Noncompressible Cephalic vein: Noncompressible Additional Findings: None. IMPRESSION: Positive for DVT in the left axillary and brachial veins. Signer Name: Chema Gilliam Jr, MD Signed: 11/29/2018 2:47 PM Workstation Name: [id number]
[2018-11-30] MEDS: DILAUDID IV PRN ×5 (00:35→23:57)
[2018-11-30] MEDS: BENADRYL IV PRN ×3 (00:36→23:58)
[2018-11-30] MEDS: MAXIPIME/NS 2 GM/100 ML 2 GM/100 ML BAG IV SCH ×2 (01:05→16:28)
[2018-11-30] MEDS: NORCO 7.5/325 PO PRN ×3 (02:56→22:56)
[2018-11-30] MEDS: TYLENOL PO PRN ×2 (04:22→22:54)
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
[2018-11-30 09:50] LABS: Basophils # (Auto) 0.1 K/mm3 (0.0-0.1); Basophils % (Auto) 0.4 % (0.0-1.8); Eosinophils # (Auto) 0.2 K/mm3 (0.0-0.4); Eosinophils % (Auto) 1.6 % (0.0-4.3); Hematocrit 26.9 % (35.5-45.6); Hemoglobin 8.8 gm/dl (11.8-15.2); Lymphocytes # (Auto) 1.3 K/mm3 (1.2-5.4); Lymphocytes % (Auto) 8.8 % (13.4-35.0); Mean Corpuscular HGB Conc 33 % (32-34); Mean Corpuscular Volume 85 fl (84-94); Monocytes % (Auto) 6.5 % (0.0-7.3); Platelet Count 367 K/mm3 (140-440); Red Blood Count 3.16 M/mm3 (3.65-5.03); Red Cell Distribution Width 15.3 % (13.2-15.2)
[2018-11-30] MEDS: MS CONTIN ER PO SCH ×2 (10:33→22:53)
[2018-11-30] MEDS: PEPCID PO SCH ×2 (10:33→22:56)
[2018-11-30] MEDS: ZOLOFT PO SCH (10:34)
[2018-11-30] MEDS: BACTRIM DS PO SCH (10:34)
[2018-11-30] MEDS: XANAX PO SCH ×2 (10:34→20:59)
[2018-11-30] MEDS: ZOFRAN ODT PO SCH (10:34)
[2018-11-30] MEDS: PROCARDIA XL PO SCH (10:34)
[2018-11-30] MEDS: SODIUM CHLORIDE FLUSH SYRINGE 10 ML IV SCH (10:35)
[2018-11-30] MEDS: LOVENOX SUB-Q SCH ×2 (10:40→22:55)
[2018-11-30] MEDS: ZOFRAN IV PRN (10:51)
--- NOTE | 2018-11-30 14:40 | Cat Scan Report ---
CT CHEST WITHOUT CONTRAST INDICATION / CLINICAL INFORMATION: Pulmonary nodules, pneumonia. TECHNIQUE: Axial CT images were obtained through the chest without contrast. Sagittal and coronal reformatted im ages. All CT scans at this location are performed using CT dose reduction for ALARA by means of autom ated exposure control. COMPARISON: None available. FINDINGS: HEART: Borderline to mild cardiomegaly is suspected. A small pericardial effusion is identified measu ring 8 mm along the free left ventricular wall. THORACIC AORTA: No significant abnormality. MEDIASTINUM and ADARSH: No significant abnormality. LUNGS: There are scattered subpleural groundglass densities throughout both lungs measuring up to 1.5 cm in greatest dimension. These appear inflammatory in nature. No discrete soft tissue pulmonary nod ule or mass. No consolidation or interstitial lung disease. PLEURA: Trace bilateral pleural effusions are identified. No pneumothorax. SKELETAL SYSTEM: No significant abnormality. UPPER ABDOMEN: Pancreatic calcifications are identified consistent with chronic pancreatitis. No acut e inflammation. ADDITIONAL FINDINGS: There is nonspecific fat stranding surrounding the left axillary vessels which i s of uncertain significance. IMPRESSION: Mild CHF or volume overload is suspected. Heart size is borderline, small pericardial effusion and t race bilateral pleural effusions. Multiple bilateral subpleural groundglass densities are identified throughout both lungs. This has th e appearance of an inflammatory process and not soft tissue nodules. Consider follow-up. Chronic pancreatitis. Signer Name: Chema Gilliam Jr, MD Signed: 11/30/2018 2:36 PM Workstation Name: [id number]
[2018-11-30] MEDS: NACL 0.9% 1000 ML 1,000 ML IV SCH (16:31)
[2018-11-30] MEDS: AMBIEN PO PRN ×2 (21:01→21:14)
[2018-12-01] MEDS: BACTRIM DS PO SCH ×3 (00:06→21:54)
[2018-12-01] MEDS: MAXIPIME/NS 2 GM/100 ML 2 GM/100 ML BAG IV SCH ×2 (01:50→13:00)
[2018-12-01] MEDS: SODIUM CHLORIDE FLUSH SYRINGE 10 ML IV SCH ×4 (03:55→21:54)
[2018-12-01] MEDS: ZOFRAN ODT PO SCH ×3 (03:56→21:54)
[2018-12-01] MEDS: BENADRYL IV PRN ×3 (06:16→18:49)
[2018-12-01] MEDS: DILAUDID IV PRN (06:16)
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
[2018-12-01] MEDS: NACL 0.9% 1000 ML 1,000 ML IV SCH ×2 (09:28→18:43)
[2018-12-01] MEDS: ZOLOFT PO SCH (09:28)
[2018-12-01] MEDS: LOVENOX SUB-Q SCH ×2 (10:44→21:54)
[2018-12-01] MEDS: PEPCID PO SCH ×2 (10:44→21:54)
[2018-12-01] MEDS: XANAX PO SCH (10:44)
[2018-12-01] MEDS: PROCARDIA XL PO SCH (10:44)
[2018-12-01] MEDS: MS CONTIN ER PO SCH ×2 (10:45→21:54)
[2018-12-01] MEDS ORDERED: ZOFRAN ODT PO SCH ×2 (11:00→22:00)
[2018-12-01 11:36] LABS: Basophils # (Auto) 0.1 K/mm3 (0.0-0.1); Basophils % (Auto) 0.5 % (0.0-1.8); Eosinophils # (Auto) 0.4 K/mm3 (0.0-0.4); Eosinophils % (Auto) 3.5 % (0.0-4.3); Hematocrit 25.5 % (35.5-45.6); Hemoglobin 8.7 gm/dl (11.8-15.2); Lymphocytes # (Auto) 1.3 K/mm3 (1.2-5.4); Lymphocytes % (Auto) 10.6 % (13.4-35.0); Mean Corpuscular HGB Conc 34 % (32-34); Mean Corpuscular Volume 84 fl (84-94); Monocytes # (Auto) 0.7 K/mm3 (0.0-0.8); Monocytes % (Auto) 5.7 % (0.0-7.3); Platelet Count 365 K/mm3 (140-440); Red Blood Count 3.05 M/mm3 (3.65-5.03); Red Cell Distribution Width 15.3 % (13.2-15.2)
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
[2018-12-01 12:04] LABS: Alanine Aminotransferase 43 units/L (7-56); Albumin 2.6 g/dL (3.9-5); BUN/Creatinine Ratio 7; Blood Urea Nitrogen 8 mg/dL (9-20); Calcium 8.4 mg/dL (8.4-10.2); Hemolysis Index 1
[2018-12-01] MEDS: NORCO 7.5/325 PO PRN ×2 (12:07→18:43)
[2018-12-01] MEDS: TYLENOL PO PRN (13:43)
[2018-12-01] MEDS ORDERED: MORPHINE IV ONE ×2 (15:08→16:00)
[2018-12-02] MEDS: XANAX PO SCH ×3 (00:08→21:50)
[2018-12-02] MEDS: BENADRYL IV PRN ×5 (00:11→23:34)
[2018-12-02] MEDS: MAXIPIME/NS 2 GM/100 ML 2 GM/100 ML BAG IV SCH ×2 (03:21→12:14)
[2018-12-02] MEDS: NORCO 7.5/325 PO PRN ×3 (03:24→15:48)
[2018-12-02] MEDS: TYLENOL PO PRN ×3 (05:56→17:49)
[2018-12-02] MEDS: SODIUM CHLORIDE FLUSH SYRINGE 10 ML IV PRN (05:56)
[2018-12-02] MEDS: BACTRIM DS PO SCH ×2 (09:05→21:50)
[2018-12-02] MEDS: LOVENOX SUB-Q SCH ×2 (09:06→21:51)
[2018-12-02] MEDS: MS CONTIN ER PO SCH ×2 (09:06→21:50)
[2018-12-02] MEDS: PROCARDIA XL PO SCH (09:07)
[2018-12-02] MEDS: PEPCID PO SCH ×2 (09:07→21:50)
[2018-12-02] MEDS: NACL 0.9% 1000 ML 1,000 ML IV SCH ×2 (09:07→17:06)
[2018-12-02] MEDS: ZOFRAN ODT PO SCH ×4 (09:14→22:00)
[2018-12-02] MEDS: ZOLOFT PO SCH ×2 (10:38→11:01)
[2018-12-02] MEDS: SODIUM CHLORIDE FLUSH SYRINGE 10 ML IV SCH ×2 (10:39→21:51)
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
[2018-12-02] MEDS: LASIX IV SCH (17:48)
[2018-12-02] MEDS: REGLAN IV PRN (18:00)
[2018-12-03] MEDS: AMBIEN PO PRN (00:05)
[2018-12-03] MEDS: MAXIPIME/NS 2 GM/100 ML 2 GM/100 ML BAG IV SCH ×2 (04:55→16:03)
[2018-12-03] MEDS: NORCO 7.5/325 PO PRN ×3 (05:43→22:21)
[2018-12-03] MEDS: BENADRYL IV PRN ×3 (05:43→19:00)
[2018-12-03] MEDS: LASIX IV SCH ×2 (05:51→18:15)
[2018-12-03] MEDS: ZOLOFT PO SCH (10:01)
[2018-12-03] MEDS: MS CONTIN ER PO SCH ×2 (10:02→22:20)
[2018-12-03] MEDS: BACTRIM DS PO SCH ×2 (10:02→22:22)
[2018-12-03] MEDS: ZOFRAN ODT PO SCH ×2 (10:04→22:21)
[2018-12-03] MEDS: XANAX PO SCH ×2 (10:04→22:21)
[2018-12-03] MEDS: LOVENOX SUB-Q SCH ×2 (10:04→22:23)
[2018-12-03] MEDS: PROCARDIA XL PO SCH (10:05)
[2018-12-03] MEDS: PEPCID PO SCH ×2 (10:05→22:22)
[2018-12-03] MEDS: SODIUM CHLORIDE FLUSH SYRINGE 10 ML IV SCH ×2 (10:06→22:23)
[2018-12-03] MEDS: REGLAN IV PRN (16:03)
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
--- NOTE | 2018-12-03 20:47 | XRay Report ---
CHEST 1 VIEW, 12/03/2018 6:17 PM CLINICAL INFORMATION/INDICATION: History of abnormal chest radiograph COMPARISON: Chest radiograph, 11/28/2018 FINDINGS: SUPPORT DEVICES: None HEART: The cardiac silhouette is normal in size. LUNGS/PLEURA: The previously seen right lower lobe airspace disease has resolved. The left lung appe ars clear. ADDITIONAL FINDINGS: No additional acute findings. IMPRESSION: 1. No evidence of acute cardiopulmonary process. Signer Name: Areli Bruce MD Signed: 12/03/2018 8:42 PM Workstation Name: [id number]
[2018-12-04] MEDS: MAXIPIME/NS 2 GM/100 ML 2 GM/100 ML BAG IV SCH (01:44)
[2018-12-04] MEDS: AMBIEN PO PRN (01:47)
[2018-12-04] MEDS: BENADRYL IV PRN ×2 (01:47→11:36)
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
[2018-12-04] MEDS: PROCARDIA XL PO SCH (09:46)
[2018-12-04] MEDS: ZOFRAN ODT PO SCH (09:46)
[2018-12-04] MEDS: BACTRIM DS PO SCH (09:46)
[2018-12-04] MEDS: ZOLOFT PO SCH (09:46)
[2018-12-04] MEDS: SODIUM CHLORIDE FLUSH SYRINGE 10 ML IV SCH (09:47)
[2018-12-04] MEDS: PEPCID PO SCH (09:47)
[2018-12-04] MEDS: MS CONTIN ER PO SCH (09:47)
[2018-12-04] MEDS: LOVENOX SUB-Q SCH (09:47)
[2018-12-04] MEDS: XANAX PO SCH (09:54)
[2018-12-04 12:17] VITALS: BP 109/70
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
[2018-12-06 13:26] LABS: ANA Screen, IFA Negative (Negative)
== END 2018-12-04 14:24 | disposition home or self-care (01) | DRG 314 ==
LOC: ED 04:11 → 3A 09:05 → 4A 11-22 20:49 → 3A 11-30 14:38
PROVIDERS: ADMIT Internal Medicine; ATTEND Internal Medicine
PROC: 3E0234Z Introduction of Serum, Toxoid and Vaccine into Muscle, Percutaneous Approach (ICD-10-PCS; principal; 2018-11-19)
PROC: 05H833Z Insertion of Infusion Device into Left Axillary Vein, Percutaneous Approach (ICD-10-PCS; 2018-11-20)
PROC: 4A033R1 Measurement of Arterial Saturation, Peripheral, Percutaneous Approach (ICD-10-PCS; 2018-11-22)
PROC: 05H833Z Insertion of Infusion Device into Left Axillary Vein, Percutaneous Approach (ICD-10-PCS; 2018-11-24)
DX: T82.7XXA Infection and inflammatory reaction due to other cardiac and vascular devices, implants and grafts, initial encounter (principal); A41.9 Sepsis, unspecified organism; K85.90 Acute pancreatitis without necrosis or infection, unspecified; N17.0 Acute kidney failure with tubular necrosis; B20 Human immunodeficiency virus [HIV] disease; L03.114 Cellulitis of left upper limb; K86.1 Other chronic pancreatitis; I82.613 Acute embolism and thrombosis of superficial veins of upper extremity, bilateral; I82.622 Acute embolism and thrombosis of deep veins of left upper extremity; L03.113 Cellulitis of right upper limb; Y84.8 Other medical procedures as the cause of abnormal reaction of the patient, or of later complication, without mention of misadventure at the time of the procedure; Y92.89 Other specified places as the place of occurrence of the external cause; I10 Essential (primary) hypertension; F17.210 Nicotine dependence, cigarettes, uncomplicated; F32.9 Major depressive disorder, single episode, unspecified; L73.9 Follicular disorder, unspecified; R19.7 Diarrhea, unspecified; I80.9 Phlebitis and thrombophlebitis of unspecified site; F11.90 Opioid use, unspecified, uncomplicated; F41.9 Anxiety disorder, unspecified; Z23 Encounter for immunization
CPT/HCPCS: 36415; 36600; 71045; 71250; 74176; 80048; 80053; 80202; 81001; 82140; 82550; 82803; 82962; 83036; 83690; 85025; 85027; 86038; 86140; 87040; 87205; 87591; 90732; 93005; 93010; 93970; 94760; 96365; 96367; 96375; 99406; G0378; J0360; J0692; J0878; J1170; J1200; J1650; J1885; J1940; J2270; J2405; J2543; J2765; J3370; J7030; J7040; J7042; Q0162

== ENCOUNTER 2019-01-10 12:10 | Emergency (ER) | payer OTHER ==
--- NOTE | 2019-01-10 12:19 | Emergency Department Report ---
Blank Doc - Documentation Documentation: 29-year-old male that presents with upper abdominal pain and nausea. Denies any vomiting. This initial assessment/diagnostic orders/clinical plan/treatment(s) is/are subject to change based on patient's health status, clinical progression and re- assessment by fellow clinical providers in the ED. Further treatment and workup at subsequent clinical providers discretion. Patient/guardians urged not to elope from the ED as their condition may be serious if not clinically assessed and managed. Initial orders include: 1- Patient sent to [facility] for further evaluation and treatment 2- labs 3- UA
[2019-01-10 13:27] LABS: Bilirubin,Urine NEG (Negative); Blood,Urine NEG (Negative); Color,Urine Yellow (Yellow); Mucus,Urine FEW /HPF; Protein,Urine <15 mg/dL mg/dL (Negative); Urobilinogen,Urine < 2.0 mg/dL (<2.0); WBC,Urine < 1.0 /HPF (0.0-6.0)
[2019-01-10 13:31] LABS: Basophils % (Auto) 0.4 % (0.0-1.8); Eosinophils # (Auto) 0.2 K/mm3 (0.0-0.4); Hematocrit 41.1 % (35.5-45.6); Hemoglobin 13.8 gm/dl (11.8-15.2); Lymphocytes # (Auto) 1.7 K/mm3 (1.2-5.4); Lymphocytes % (Auto) 32.1 % (13.4-35.0); Mean Corpuscular HGB Conc 34 % (32-34); Mean Corpuscular Volume 88 fl (84-94); Monocytes # (Auto) 0.2 K/mm3 (0.0-0.8); Monocytes % (Auto) 4.3 % (0.0-7.3); Platelet Count 229 K/mm3 (140-440); Red Blood Count 4.66 M/mm3 (3.65-5.03); Red Cell Distribution Width 16.6 % (13.2-15.2)
[2019-01-10 13:47] LABS: Alanine Aminotransferase 19 units/L (7-56); Albumin 4.8 g/dL (3.9-5); BUN/Creatinine Ratio 20; Blood Urea Nitrogen 18 mg/dL (9-20); Calcium 9.6 mg/dL (8.4-10.2); Hemolysis Index 19
--- NOTE | 2019-01-10 13:49 | Emergency Department Report ---
ED Abdominal Pain HPI - General Chief Complaint: Abdominal Pain Stated Complaint: ABD PAIN Time Seen by Provider: 01/10/19 12:18 Source: patient Mode of arrival: Ambulatory Limitations: No Limitations - Related Data Previous Rx's Medication Instructions Recorded Last Taken Type Ondansetron [Zofran ODT TAB] 8 mg PO Q12HR #30 tab.rapdis 06/22/18 11/16/18 Rx ALPRAZolam [Xanax TAB] 0.5 mg PO BID #10 tablet 12/04/18 Unknown Rx Apixaban [Eliquis] 5 mg PO BID 30 Days tablet 12/04/18 Unknown Rx Biktarvy 50-200-25 mg (Nf) 1 tab PO DAILY #30 12/04/18 Unknown Rx HYDROcodone/APAP 7.5-325 [[place] 2 each PO Q6H PRN #20 tablet 12/04/18 Unknown Rx 7.5-325 mg TAB] Morphine ER [Ms Contin ER] 15 mg PO Q12HR #10 tablet 12/04/18 Unknown Rx NIFEdipine XL [Procardia Xl] 60 mg PO QDAY #30 tablet 12/04/18 Unknown Rx Ondansetron [Zofran ODT TAB] 8 mg PO Q8HR PRN #90 tab.rapdis 12/04/18 Unknown Rx Sertraline [Zoloft] 25 mg PO QDAC #30 tablet 12/04/18 Unknown Rx Sulfamethoxazole/Trimethoprim 1 each PO Q12HR #10 tablet 12/04/18 Unknown Rx [Bactrim DS TAB] Zolpidem [Ambien] 10 mg PO QHS PRN #7 tablet 12/04/18 Unknown Rx Allergies Allergy/AdvReac Type Severity Reaction Status Date / Time No Known Allergies Allergy Verified 08/08/18 16:25 ED Review of Systems ROS: Stated complaint: ABD PAIN Other details as noted in HPI ED Past Medical Hx - Past Medical History Hx Hypertension: Yes Hx Congestive Heart Failure: No Hx Diabetes: No Hx Deep Vein Thrombosis: No Hx Asthma: No Hx COPD: No Hx HIV: Yes Additional medical history: pancreatitis. Crohn's - Surgical History Hx Coronary Stent: No Hx Open Heart Surgery: No Hx Pacemaker: No Hx Internal Defibrillator: No Hx Cholecystectomy: No Hx Appendectomy: No Hx Breast Surgery: No - Social History Smoking Status: Never Smoker Substance Use Type: None - Medications Home Medications: Home Medications Medication Instructions Recorded Confirmed Last Taken Type Ondansetron [Zofran ODT TAB] 8 mg PO Q12HR #30 tab.rapdis 06/22/18 11/18/18 11/16/18 Rx ALPRAZolam [Xanax TAB] 0.5 mg PO BID #10 tablet 12/04/18 Unknown Rx Apixaban [Eliquis] 5 mg PO BID 30 Days tablet 12/04/18 Unknown Rx Biktarvy 50-200-25 mg (Nf) 1 tab PO DAILY #30 12/04/18 Unknown Rx HYDROcodone/APAP 7.5-325 [[place] 2 each PO Q6H PRN #20 tablet 12/04/18 Unknown Rx 7.5-325 mg TAB] Morphine ER [Ms Contin ER] 15 mg PO Q12HR #10 tablet 12/04/18 Unknown Rx NIFEdipine XL [Procardia Xl] 60 mg PO QDAY #30 tablet 12/04/18 Unknown Rx Ondansetron [Zofran ODT TAB] 8 mg PO Q8HR PRN #90 tab.rapdis 12/04/18 Unknown Rx Sertraline [Zoloft] 25 mg PO QDAC #30 tablet 12/04/18 Unknown Rx Sulfamethoxazole/Trimethoprim 1 each PO Q12HR #10 tablet 12/04/18 Unknown Rx [Bactrim DS TAB] Zolpidem [Ambien] 10 mg PO QHS PRN #7 tablet 12/04/18 Unknown Rx ED Physical Exam - General Limitations: No Limitations ED Medical Decision Making - Lab Data Result diagrams: 01/10/19 12:38 01/10/19 12:38 Critical care attestation.: If time is entered above; I have spent that time in minutes in the direct care of this critically ill patient, excluding procedure time. ED Disposition Condition: Stable
[2019-01-10 13:58] VITALS: BP 139/97
== END 2019-01-10 17:54 | disposition left against medical advice (07) ==
LOC: ED 12:10
DX: R10.9 Unspecified abdominal pain (principal); Z53.21 Procedure and treatment not carried out due to patient leaving prior to being seen by health care provider
CPT/HCPCS: 36415; 80053; 81001; 83690; 85025

== ENCOUNTER 2019-03-30 17:26 | Emergency (ER) | payer SELFPAY ==
--- NOTE | 2019-03-30 19:46 | Event Note ---
ED Screening Note Date of service: 03/30/19 Time: 19:45 ED Screening Note: 29 y o male with pmh of chrohns and pancreatitis presents with abdominal pain cc of n/v This initial assessment/diagnostic orders/clinical plan/treatment(s) is/are subject to change based on patients health status, clinical progression and re- assessment by fellow clinical providers in the ED. Further treatment and workup at subsequent clinical providers discretion. Patient/guardian urged not to elope from the ED as their condition may be serious if not clinically assessed and managed. Initial orders include: labs ivf, meds acc eval
[2019-03-30 20:45] LABS: Hematocrit 41.1 % (35.5-45.6); Hemoglobin 13.7 gm/dl (11.8-15.2); Lymphocytes % (Auto) 33.7 % (13.4-35.0); Mean Corpuscular HGB Conc 34 % (32-34); Mean Corpuscular Volume 86 fl (84-94); Platelet Count 238 K/mm3 (140-440); Red Blood Count 4.75 M/mm3 (3.65-5.03); Red Cell Distribution Width 13.1 % (13.2-15.2)
[2019-03-30 20:46] LABS: Basophils % (Auto) 0.4 % (0.0-1.8); Eosinophils # (Auto) 0.1 K/mm3 (0.0-0.4); Eosinophils % (Auto) 2.2 % (0.0-4.3); Lymphocytes # (Auto) 1.3 K/mm3 (1.2-5.4); Monocytes # (Auto) 0.4 K/mm3 (0.0-0.8); Monocytes % (Auto) 9.4 % (0.0-7.3)
[2019-03-30 21:08] LABS: Alanine Aminotransferase 34 units/L (7-56); Albumin 4.5 g/dL (3.9-5); BUN/Creatinine Ratio 19; Blood Urea Nitrogen 17 mg/dL (9-20); Calcium 9.9 mg/dL (8.4-10.2)
[2019-03-30 21:09] LABS: Hemolysis Index 8
[2019-03-30 21:26] LABS: Bilirubin,Urine Negative (Negative); Blood,Urine Negative (Negative); Color,Urine Yellow (Yellow); Protein,Urine <15 mg/dL mg/dL (Negative); Urobilinogen,Urine < 2.0 mg/dL (<2.0)
[2019-03-30 21:27] LABS: Mucus,Urine Few /HPF
[2019-03-30] MEDS ORDERED: FAMOTIDINE 20 MG/2 ML INJ IV ONE (23:27)
[2019-03-30] MEDS ORDERED: ONDANSETRON 4 MG/2 ML INJ IV ONE (23:27)
[2019-03-30] MEDS ORDERED: MORPHINE 4 MG/1 ML INJ IV ONE (23:27)
[2019-03-30] MEDS ORDERED: SODIUM CHLORIDE 0.9% 1000 ML 1,000 ML IV ONE (23:27)
--- NOTE | 2019-03-31 00:33 | Emergency Department Report ---
ED Abdominal Pain HPI - General Chief Complaint: Abdominal Pain Stated Complaint: ABD PAIN/COLD SYMPTOMS Source: patient Mode of arrival: Ambulatory Limitations: No Limitations - History of Present Illness Initial Comments: Patient is a 29-year-old [place] male with a history of HIV and chronic pancreatitis who presents to the ED with complaint of acute onset persistent nasal and sinus congestion, frontal sinus pressure, dry cough, periumbilical abdominal pain that radiates to his mid posterior thoracic area with intermittent nausea and vomiting for the last 1 week, worse in the last 2 days. Patient states that he has not eaten anything in the last 3 days because of per sistent abdominal pain. Patient states that he believes abdominal pain is from his chronic pancreatitis that is flaring up. Patient denies dizziness, syncope, chest pain, shortness of breath, diarrhea, change in vision, testicle pain, dysuria, urinary frequency and urgency. MD Complaint: abdominal pain, other (nausea and vomiting, nasal and sinus congestion, frontal sinus pressure and dry cough) -: Sudden, week(s) (1) Location: periumbilical Radiation: epigastric Migration to: no migration Severity: severe Severity scale (0 -10): 10 Quality: cramping, aching, sharp Consistency: constant Improves With: nothing Worsens With: eating, vomiting Associated Symptoms: denies other symptoms, nausea, vomiting, anorexia. denies: diarrhea, fever, chills, constipation, dysuria, hematemesis, hematochezia, melena, hematuria, syncope, other - Related Data Previous Rx's Medication Instructions Recorded Last Taken Type Ondansetron [Zofran ODT TAB] 8 mg PO Q12HR #30 tab.rapdis 06/22/18 11/16/18 Rx ALPRAZolam [Xanax TAB] 0.5 mg PO BID #10 tablet 12/04/18 Unknown Rx Apixaban [Eliquis] 5 mg PO BID 30 Days tablet 12/04/18 Unknown Rx Biktarvy 50-200-25 mg (Nf) 1 tab PO DAILY #30 12/04/18 Unknown Rx HYDROcodone/APAP 7.5-325 [[place] 2 each PO Q6H PRN #20 tablet 12/04/18 Unknown Rx 7.5-325 mg TAB] Morphine ER [Ms Contin ER] 15 mg PO Q12HR #10 tablet 12/04/18 Unknown Rx NIFEdipine XL [Procardia Xl] 60 mg PO QDAY #30 tablet 12/04/18 Unknown Rx Ondansetron [Zofran ODT TAB] 8 mg PO Q8HR PRN #90 tab.rapdis 12/04/18 Unknown Rx Sertraline [Zoloft] 25 mg PO QDAC #30 tablet 12/04/18 Unknown Rx Sulfamethoxazole/Trimethoprim 1 each PO Q12HR #10 tablet 12/04/18 Unknown Rx [Bactrim DS TAB] Zolpidem [Ambien] 10 mg PO QHS PRN #7 tablet 12/04/18 Unknown Rx Amoxicillin [Trimox CAP] 500 mg PO Q8H #30 capsule 03/31/19 Unknown Rx Benzonatate [Tessalon Perles] 100 mg PO Q8HR #30 capsule 03/31/19 Unknown Rx Famotidine [Pepcid] 20 mg PO Q12H #40 tablet 03/31/19 Unknown Rx Ondansetron [Zofran Odt] 4 mg PO Q6H PRN #20 tab.rapdis 03/31/19 Unknown Rx oxyCODONE /ACETAMINOPHEN [Percocet 1 tab PO Q6HR PRN #12 tablet 03/31/19 Unknown Rx 5/325] Allergies Allergy/AdvReac Type Severity Reaction Status Date / Time No Known Allergies Allergy Verified 08/08/18 16:25 ED Review of Systems ROS: Stated complaint: ABD PAIN/COLD SYMPTOMS Other details as noted in HPI Comment: All other systems reviewed and negative Constitutional: denies: chills, fever Eyes: denies: eye pain, eye discharge, vision change ENT: congestion. denies: ear pain, throat pain Respiratory: cough. denies: shortness of breath, wheezing Cardiovascular: denies: chest pain, palpitations Endocrine: no symptoms reported Gastrointestinal: abdominal pain, nausea, vomiting. denies: diarrhea, constipation, hematemesis, melena, hematochezia Genitourinary: denies: urgency, dysuria, frequency, hematuria, testicular pain, testicular mass Musculoskeletal: denies: back pain, joint swelling, arthralgia Skin: denies: rash, lesions Neurological: headache. denies: weakness, paresthesias Psychiatric: denies: anxiety, depression Hematological/Lymphatic: denies: easy bleeding, easy bruising ED Past Medical Hx - Past Medical History Previous Medical History?: Yes Hx Hypertension: Yes Hx Congestive Heart Failure: No Hx Diabetes: No Hx Deep Vein Thrombosis: No Hx Asthma: No Hx COPD: No Hx HIV: Yes Additional medical history: pancreatitis. Crohn's - Surgical History Past Surgical History?: No Hx Coronary Stent: No Hx Open Heart Surgery: No Hx Pacemaker: No Hx Internal Defibrillator: No Hx Cholecystectomy: No Hx Appendectomy: No Hx Breast Surgery: No - Social History Smoking Status: Never Smoker Substance Use Type: None - Medications Home Medications: Home Medications Medication Instructions Recorded Confirmed Last Taken Type Ondansetron [Zofran ODT TAB] 8 mg PO Q12HR #30 tab.rapdis 06/22/18 11/18/18 11/16/18 Rx ALPRAZolam [Xanax TAB] 0.5 mg PO BID #10 tablet 12/04/18 Unknown Rx Apixaban [Eliquis] 5 mg PO BID 30 Days tablet 12/04/18 Unknown Rx Biktarvy 50-200-25 mg (Nf) 1 tab PO DAILY #30 12/04/18 Unknown Rx HYDROcodone/APAP 7.5-325 [[place] 2 each PO Q6H PRN #20 tablet 12/04/18 Unknown Rx 7.5-325 mg TAB] Morphine ER [Ms Contin ER] 15 mg PO Q12HR #10 tablet 12/04/18 Unknown Rx NIFEdipine XL [Procardia Xl] 60 mg PO QDAY #30 tablet 12/04/18 Unknown Rx Ondansetron [Zofran ODT TAB] 8 mg PO Q8HR PRN #90 tab.rapdis 12/04/18 Unknown Rx Sertraline [Zoloft] 25 mg PO QDAC #30 tablet 12/04/18 Unknown Rx Sulfamethoxazole/Trimethoprim 1 each PO Q12HR #10 tablet 12/04/18 Unknown Rx [Bactrim DS TAB] Zolpidem [Ambien] 10 mg PO QHS PRN #7 tablet 12/04/18 Unknown Rx Amoxicillin [Trimox CAP] 500 mg PO Q8H #30 capsule 03/31/19 Unknown Rx Benzonatate [Tessalon Perles] 100 mg PO Q8HR #30 capsule 03/31/19 Unknown Rx Famotidine [Pepcid] 20 mg PO Q12H #40 tablet 03/31/19 Unknown Rx Ondansetron [Zofran Odt] 4 mg PO Q6H PRN #20 tab.rapdis 03/31/19 Unknown Rx oxyCODONE /ACETAMINOPHEN [Percocet 1 tab PO Q6HR PRN #12 tablet 03/31/19 Unknown Rx 5/325] ED Physical Exam - General Limitations: No Limitations General appearance: alert, in no apparent distress - Head Head exam: Present: atraumatic, normocephalic, normal inspection - Eye Eye exam: Present: normal appearance, PERRL, EOMI Pupils: Present: normal accommodation - ENT ENT exam: Present: normal orophraynx, mucous membranes moist, TM's normal bilaterally, normal external ear exam, other (grossly congested nasal passages with frontal sinus tenderness) - Neck Neck exam: Present: normal inspection, full ROM. Absent: tenderness, lymph adenopathy - Respiratory Respiratory exam: Present: normal lung sounds bilaterally. Absent: respiratory distress, wheezes, rales, chest wall tenderness - Cardiovascular Cardiovascular Exam: Present: regular rate, normal rhythm, normal heart sounds. Absent: systolic murmur, diastolic murmur, rubs, gallop - GI/Abdominal GI/Abdominal exam: Present: soft, tenderness (palpable periumbilical tenderness with no guarding or rebound), normal bowel sounds. Absent: guarding, rebound, hyperactive bowel sounds, organomegaly - Rectal Rectal exam: Present: deferred - Extremities Exam Extremities exam: Present: normal inspection, full ROM, normal capillary refill - Back Exam Back exam: Present: normal inspection, full ROM, tenderness (palpable lumbosacral paraspinal musculoskeletal tenderness), muscle spasm, paraspinal tenderness. Absent: vertebral tenderness - Neurological Exam Neurological exam: Present: alert, oriented X3, CN II-XII intact, normal gait, reflexes normal - Psychiatric Psychiatric exam: Present: normal affect, normal mood - Skin Skin exam: Present: warm, dry, intact, normal color. Absent: rash ED Course Vital Signs 03/30/19 03/30/19 19:45 23:45 Temperature 98.7 F Pulse Rate 100 H Respiratory 18 18 Rate Blood Pressure 101/78 O2 Sat by Pulse 96 Oximetry ED Medical Decision Making - Lab Data Result diagrams: 03/30/19 20:13 03/30/19 20:13 - Medical Decision Making This is a 29-year-old male with a history of chronic pancreatitis and HIV who presents to the ED with acute exacerbation of his chronic pancreatitis pain characterized by periumbilical pain that radiates to the mid posterior thoracic area, nasal and sinus congestion, nausea and vomiting and persistent dry cough. In the ED, patient is alert and oriented 3 and is not in distress. Lab test results were reviewed and showed acute lekocopenia of 3.9, elevated lactic levels 153 and hyperglycemia of 1 48 mg/dL. Patient was treated in the ED with normal saline, pain medications and was discharged home on pain medications and antiemetics and antacids. Patient was advised to remain nothing by mouth for 12-24 hours, then advance on solids foods within 24-48 hours. Patient was discharged home on medications and was advised to follow-up with his primary care physician in 5-7 days for reevaluation. Patient was also advised to return to the emergency department immediately if symptoms get worse. - Differential Diagnosis Chronic pancreatitis; GERD; Vomiting; dehydration; URI; Bronchitis Critical care attestation.: If time is entered above; I have spent that time in minutes in the direct care of this critically ill patient, excluding procedure time. ED Disposition Clinical Impression: Acute upper respiratory infection Acute bronchitis Qualifiers: Bronchitis organism: other organism Qualified Code(s): J20.8 - Acute bronchitis due to other specified organisms Chronic pancreatitis Qualifiers: Pancreatitis type: other Qualified Code(s): K86.1 - Other chronic pancreatitis Vomiting Qualifiers: Vomiting type: bilious vomiting Nausea presence: with nausea Qualified Code(s): R11.14 - Bilious vomiting Disposition: - TO HOME OR SELFCARE Is pt being admited?: No Does the pt Need Aspirin: No Condition: Stable Instructions: Acute Bronchitis (ED), Upper Respiratory Infection (ED), Pancreat itis (ED), Acute Bacterial Rhinosinusitis (ED) Additional Instructions: Take medication with food, drink plenty of fluids and follow-up with your primary care physician in 5-7 days for reevaluation. Return to the ED immediately if symptoms get worse. Prescriptions: Famotidine [Pepcid] 20 mg PO Q12H #40 tablet oxyCODONE /ACETAMINOPHEN [Percocet 5/325] 1 tab PO Q6HR PRN #12 tablet PRN Reason: Pain Benzonatate [Tessalon Perles] 100 mg PO Q8HR #30 capsule Amoxicillin [Trimox CAP] 500 mg PO Q8H #30 capsule Ondansetron [Zofran Odt] 4 mg PO Q6H PRN #20 tab.rapdis PRN Reason: Nausea Referrals: CHI LAWSON MD [Staff Physician] - 7-10 days Forms: Work/School Release Form(ED) Time of Disposition: 00:47 Print Language: HEBREW
[2019-03-31] MEDS ORDERED: METOCLOPRAMIDE 10 MG/2 ML INJ IV ONE (00:34)
[2019-03-31] MEDS ORDERED: KETOROLAC 30 MG/1 ML INJ IV ONE (00:34)
[2019-03-31] MEDS ORDERED: diphenhydrAMINE 50 MG/ML VIAL IV ONE (00:34)
[2019-03-31 01:07] VITALS: BP 116/78
== END 2019-03-31 01:07 | disposition home or self-care (01) ==
LOC: ED 17:26
DX: J06.9 Acute upper respiratory infection, unspecified (principal); K86.1 Other chronic pancreatitis; J20.9 Acute bronchitis, unspecified; R11.2 Nausea with vomiting, unspecified; I10 Essential (primary) hypertension; Z21 Asymptomatic human immunodeficiency virus [HIV] infection status; Z79.899 Other long term (current) drug therapy
CPT/HCPCS: 36415; 80053; 81001; 82150; 83690; 85025; 96361; 96374; 96375; 99283; J1200; J1885; J2270; J2405; J2765; J7030

== ENCOUNTER 2019-11-29 19:52 | Emergency (ER) | payer MEDICAID, OTHER ==
[2019-11-29 20:08] VITALS: BP 130/90
== END 2019-11-29 20:10 | disposition left against medical advice (07) ==
LOC: ED 19:52
DX: M54.2 Cervicalgia (principal); M54.6 Pain in thoracic spine; Z53.21 Procedure and treatment not carried out due to patient leaving prior to being seen by health care provider; V49.49XA Driver injured in collision with other motor vehicles in traffic accident, initial encounter; Y93.89 Activity, other specified; Y92.410 Unspecified street and highway as the place of occurrence of the external cause; Y99.8 Other external cause status

== ENCOUNTER 2020-08-07 10:50 | Emergency (ER) | payer MEDICAID, OTHER | END 2020-08-07 10:55 | disposition left against medical advice (07) | LOC: ED 10:50 | DX: R10.9 Unspecified abdominal pain (principal); Z53.21 Procedure and treatment not carried out due to patient leaving prior to being seen by health care provider ==

== ENCOUNTER 2020-11-12 08:41 | Emergency (ER) | payer MEDICAID ==
[2020-11-12 08:50] VITALS: BP 144/86
[2020-11-12 09:16] LABS: Bilirubin,Urine NEG (Negative); Blood,Urine NEG (Negative); Color,Urine Yellow (Yellow); Mucus,Urine FEW /HPF; Protein,Urine <15 mg/dL mg/dL (Negative); Urobilinogen,Urine < 2.0 mg/dL (<2.0)
[2020-11-12 09:57] LABS: Basophils % (Auto) 0.2 % (0.0-1.8); Eosinophils # (Auto) 0.1 K/mm3 (0.0-0.4); Eosinophils % (Auto) 1.5 % (0.0-4.3); Hematocrit 39.5 % (35.5-45.6); Hemoglobin 13.4 gm/dl (11.8-15.2); Lymphocytes # (Auto) 1.6 K/mm3 (1.2-5.4); Lymphocytes % (Auto) 24.3 % (13.4-35.0); Mean Corpuscular HGB Conc 34 % (32-34); Mean Corpuscular Volume 86 fl (84-94); Monocytes # (Auto) 0.3 K/mm3 (0.0-0.8); Monocytes % (Auto) 5.1 % (0.0-7.3); Platelet Count 203 K/mm3 (140-440); Red Blood Count 4.57 M/mm3 (3.65-5.03); Red Cell Distribution Width 14.1 % (13.2-15.2)
[2020-11-12 10:07] LABS: Alanine Aminotransferase 21 units/L (7-56); Albumin 4.4 g/dL (3.9-5); BUN/Creatinine Ratio 15; Blood Urea Nitrogen 17 mg/dL (9-20); Hemolysis Index 4
--- NOTE | 2020-11-12 10:46 | Event Note ---
ED Screening Note ED Screening Note: epigastric pain that began 5-6 days ago has a hx of chronic pancreatitis went to [facility] 3 days ago and was given tylenol 3 and ciprofloxacin reports he had a CT scan performed 3 days ago states he is not improving +n/v reports scant bright red blood in stool PMHx HIV, HTN, crohns has not seen GI in over 3 months was seeing rose [facility]divar This initial assessment/diagnostic orders/clinical plan/treatment(s) is/are subject to change based on patients health status, clinical progression and re- assessment by fellow clinical providers in the ED. Further treatment and workup at subsequent clinical providers discretion. Patient/guardian urged not to elope from the ED as their condition may be serious if not clinically assessed and managed. Initial orders include: ACC eval and meds
== END 2020-11-12 18:40 | disposition left against medical advice (07) ==
LOC: ED 08:41
DX: R10.9 Unspecified abdominal pain (principal); Z53.21 Procedure and treatment not carried out due to patient leaving prior to being seen by health care provider
CPT/HCPCS: 36415; 80053; 81001; 83690; 85025

== ENCOUNTER 2020-12-13 00:01 | Emergency (ER) | payer MEDICAID ==
[2020-12-13] MEDS ORDERED: SODIUM CHLORIDE 0.9% 1000 ML 1,000 ML ONE (00:13)
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
[2020-12-13] MEDS ORDERED: SODIUM CHLORIDE 0.9% 1000 ML 1,000 ML IV ONE (00:18)
[2020-12-13] MEDS ORDERED: TETANUS,DIPH,PERTUSS(ACELL) VACCINE 0.5 ML SYRINGE IM ONE (00:18)
[2020-12-13] MEDS ORDERED: ONDANSETRON 4 MG/2 ML INJ IV ONE (00:19)
[2020-12-13] MEDS ORDERED: HYDROmorphone 1 MG/1 ML INJ IV ONE ×6 (00:19→05:16)
[2020-12-13 01:06] LABS: Mean Corpuscular HGB Conc 34 % (32-34); Mean Corpuscular Volume 88 fl (84-94); Platelet Count 196 K/mm3 (140-440); Red Blood Count 3.97 M/mm3 (3.65-5.03); Red Cell Distribution Width 14.3 % (13.2-15.2)
--- NOTE | 2020-12-13 01:06 | XRay Report ---
EXAMINATION: XR hand 3+V RT, INDICATION / CLINICAL INFORMATION: pain COMPARISON: None available. FINDINGS: BONES / JOINT(S): No acute fracture or subluxation. SOFT TISSUES: No significant abnormality. ADDITIONAL FINDINGS: None. IMPRESSION: No acute process. Signer Name: Devon Gu MD Signed: 12/13/2020 1:02 AM Workstation Name: [id number]
[2020-12-13 01:28] LABS: Alanine Aminotransferase 26 units/L (7-56); Albumin 4.2 g/dL (3.9-5); BUN/Creatinine Ratio 11; Blood Urea Nitrogen 13 mg/dL (9-20); Calcium 8.7 mg/dL (8.4-10.2); Hemolysis Index 25
[2020-12-13] MEDS ORDERED: diphenhydrAMINE 50 MG/ML VIAL IV ONE (03:55)
[2020-12-13 05:19] VITALS: BP 124/79
--- NOTE | 2020-12-13 14:50 | Electrocardiograph Report ---
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
== END 2020-12-13 07:47 | disposition short-term general hospital (02) ==
LOC: ED 00:01
DX: S61.411A Laceration without foreign body of right hand, initial encounter (principal); S61.011A Laceration without foreign body of right thumb without damage to nail, initial encounter; R00.0 Tachycardia, unspecified; M79.641 Pain in right hand; I95.9 Hypotension, unspecified; F17.200 Nicotine dependence, unspecified, uncomplicated; W25.XXXA Contact with sharp glass, initial encounter; Y93.89 Activity, other specified; Y92.89 Other specified places as the place of occurrence of the external cause; Y99.8 Other external cause status
CPT/HCPCS: 36415; 73130; 80053; 85027; 90471; 90715; 93005; 96361; 96365; 96375; 96376; 99291; J0690; J1170; J1200; J2405; J7030